=== PATIENT | female | born 1955 | race Caucasian/White ===

== ENCOUNTER 2020-04-19 15:25 | Outpatient (REF) | payer MEDICARE, SELFPAY | END 2020-04-19 15:26 | disposition home or self-care (01) | LOC: HO.LAB 15:25 | PROVIDERS: Visit Provider Internal Medicine | DX: Z20.828 Contact with and (suspected) exposure to other viral communicable diseases (principal) | CPT/HCPCS: C9803; U0003 ==

== ENCOUNTER → 2020-05-14 11:18 | Outpatient (BNVA) | payer MEDICARE, SELFPAY | PROVIDERS: PCP Internal Medicine; Visit Provider Nurse Practitioner | DX: Z13.89 Encounter for screening for other disorder (principal) | CPT/HCPCS: Q3014 ==

== ENCOUNTER → 2020-06-11 12:55 | Outpatient (BNVA) | payer MEDICARE, SELFPAY | PROVIDERS: PCP Internal Medicine; Visit Provider Surgery | DX: D24.1 Benign neoplasm of right breast (principal) | CPT/HCPCS: 99212 ==

== ENCOUNTER → 2020-08-21 12:17 | Outpatient (BNVA) | payer MEDICARE, SELFPAY | PROVIDERS: PCP Internal Medicine; Visit Provider Nurse Practitioner | DX: Z13.89 Encounter for screening for other disorder (principal) | CPT/HCPCS: Q3014 ==

== ENCOUNTER 2021-02-13 09:12 | Outpatient (REF) | payer MEDICARE, SELFPAY ==
--- NOTE | ~2021-02-13 | MM_ITS ---
EXAMINATION: BONE DENSITOMETRY CLINICAL INDICATION: Encounter for screening for osteoporosis. COMPARISON: Baseline BD dated 09/08/2016, left hip. This is the patient's baseline examination for the forearm radius 33%. TECHNIQUE: Using a [employer] DXA System (software version: 13.1) manufactured by [employer], dual-energy x-ray absorptiometry was performed of the left hip and left forearm radius 33%. The images are of good technical quality. Summary results are attached. FINDINGS: LEFT FEMUR, NECK: Current: BMD 0.636 g/cm2, Z-score -1.2, T-score -2.9, osteoporosis. Baseline: BMD 0.751 g/cm2. LEFT FEMUR, TOTAL: Current: BMD 0.766 g/cm2, Z-score -0.5, T-score -1.9, osteopenia, 7.3% decrease from baseline (<5% change is not significant). Baseline: BMD 0.826 g/cm2. LEFT FOREARM RADIUS 33%: BMD 0.538 g/cm2, Z-score -2.2, T-score -3.9, osteoporosis. IDENTIFIED RISK FACTORS: Menopause, history of fracture (adult). HISTORY OF FRACTURE: Spine. MEDICATIONS: Calcium. MM/XR DEXA axial skeleton IMPRESSION: 1. DIAGNOSIS: Severe osteoporosis based on the lowest T-score value of -3.9 in the forearm radius 33% and fracture history applying World Health Organization criteria. 2. 10-YEAR FRACTURE RISK PREDICTION, FRAX: Major osteoporotic fracture (clinical spine, forearm, hip or shoulder) 15.4%. Hip fracture 4.3%. 3. Treatment Recommendations: NOF guidelines recommend consideration for treatment in postmenopausal women and men age 50 and older presenting with the following: -A hip or vertebral (clinical or morphometric) fracture. -T-score less than or equal to -2.5 at the femoral neck or spine after appropriate evaluation to exclude secondary causes. -Low bone mass at the hip or spine and a 10-year fracture probability by FRAX of greater than or equal to 3% for hip fracture or greater than or equal to 20% for major osteoporotic fracture based on the [place] adapted WHO algorithm. 4. Other Recommendations: All treatment decisions require clinical judgment and consideration of individual patient factors, including patient preferences, comorbidities, previous drug use, risk factors not captured in the FRAX model (e.g. frailty, falls, vitamin D deficiency, increased bone turnover, interval significant decline in bone density) and possible under or overestimation of fracture risk by FRAX. Additional medical evaluation for secondary cause of low bone mineral density may be appropriate. FUTURE SCAN RECOMMENDATION: People with diagnosed cases of osteoporosis or at high risk for fracture should have regular bone mineral density tests. For patients eligible for Medicare, routine testing is allowed once every 2 years. The testing frequency can be increased to one year for patients who have rapidly progressing disease, those who are receiving or discontinuing medical therapy to restore bone mass, or have additional risk factors.
== END 2021-02-13 09:13 | disposition home or self-care (01) ==
LOC: HO.MAMMO 09:12
PROVIDERS: PCP Internal Medicine; Visit Provider Internal Medicine
DX: Z13.820 Encounter for screening for osteoporosis (principal); M81.0 Age-related osteoporosis without current pathological fracture; Z78.0 Asymptomatic menopausal state; M48.50XS Collapsed vertebra, not elsewhere classified, site unspecified, sequela of fracture; E11.9 Type 2 diabetes mellitus without complications; I10 Essential (primary) hypertension; M67.814 Other specified disorders of tendon, left shoulder; Z79.899 Other long term (current) drug therapy
CPT/HCPCS: 77080

== ENCOUNTER → 2021-02-18 13:09 | Outpatient (BNVA) | payer MEDICARE, SELFPAY | PROVIDERS: Visit Provider Nurse Practitioner | DX: Z13.89 Encounter for screening for other disorder (principal) | CPT/HCPCS: Q3014 ==

== ENCOUNTER → 2021-02-26 11:24 | Outpatient (BNVA) | payer MEDICARE, SELFPAY | PROVIDERS: PCP Internal Medicine; Referring Provider Internal Medicine; Visit Provider Surgery | DX: Z12.11 Encounter for screening for malignant neoplasm of colon (principal) | CPT/HCPCS: Q3014 ==

== ENCOUNTER 2021-04-04 06:30 | Day surgery (SDC) | payer MEDICARE, SELFPAY ==
[2021-03-28 09:09] VITALS: BMI 28.0
[2021-04-04 06:54] VITALS: BP 148/56; PULSE 75; RESP 18; TEMP 36.4; O2SAT 98
--- NOTE | 2021-04-04 07:02 | HO.ANESPROP2 ---
REPLACED BY [facility] Active Problems Active Problems: All Active Problems (Updated 04/04/21 @ 06:45 by Kyleigh Grande RN) Irritable bowel syndrome with diarrhea (Acute) Abdominal bloating (Acute) Colon cancer screening (Acute) Fibroadenoma of right breast (Acute) GERD (gastroesophageal reflux disease) (Acute) Nix's esophagus (Acute) Primary biliary cholangitis with systemic sclerosis (Acute) Epigastric burning sensation (Acute) Past Medical History Medical History (Updated 04/04/21 @ 06:45 by Kyleigh Grande RN) Asthma Nix's esophagus Colon cancer screening COVID-19 vaccine series completed Diabetes Epigastric burning sensation Fibroadenoma of right breast GERD (gastroesophageal reflux disease) IBS (irritable bowel syndrome) Primary biliary cholangitis with systemic sclerosis Family History Family History Father Family history of brain aneurysm Mother Myocardial infarct Family/Other Breast cancer Family history of problems with anesthesia: No Surgical History Surgical History History of back surgery (08/2017) History of colonoscopy (10/2008) History of esophagogastroduodenoscopy (EGD) (12/20/17) History of eye surgery History of right breast biopsy (07/26/18) History of Problems with Anesthesia: No Social History Social History Household Members: Family and Children Alcohol intake: current Alcohol intake frequency: does not drink Patient Tobacco Use Status: Never used Tobacco Use of substances other than those prescribed or required for medical reasons: No Have you been hit, kicked, punched, or otherwise hurt by someone within the past year? If so, by whom?: No Are you DNR?: No Advance Directives Information Provided: Yes (informational brochure mailed) Advance Directives on File: No Recently lost weight without trying: No Eating poorly because of decreased appetite: No Nutrition Risks: No Nutritional Risk Meds Allergies Allergy/AdvReac Type Severity Reaction Status Date / Time Iodinated Contrast Media Allergy Mild RASH Verified 04/04/21 06:43 [IV Dye, Iodine Containing] Active Medications: Current Medications Lactated Ringer's (Lr) 1,000 mls @ 50 mls/hr IVCONT .Q20H [facility] Home Medications Medication Instructions Recorded Confirmed Last Taken Type amlodipine 10 mg tablet 10 mg PO QAM 08/21/20 03/28/21 04/04/21 05:30 History atorvastatin 40 mg tablet 40 mg PO BEDTIME 08/21/20 03/28/21 Unknown History calcium citrate 200 mg 1 tab PO DAILY 08/21/20 03/28/21 Unknown History calcium-vitamin D3 6.25 mcg (250 unit) tablet cholecalciferol (vitamin D3) 25 25 mcg PO QAM 08/21/20 03/28/21 Unknown History mcg (1,000 unit) tablet fluticasone propionate 220 1 inh INHALATION BID 08/21/20 03/28/21 Unknown History mcg/actuation HFA aerosol inhaler lancets 33 gauge #100 ea 08/21/20 02/26/21 Unknown History lisinopril 5 mg tablet 5 mg PO DAILY 08/21/20 03/28/21 Unknown History metformin 500 mg tablet,extended 1,000 mg PO BID 08/21/20 03/28/21 Unknown History release 24 hr sertraline 25 mg tablet 25 mg PO DAILY 08/21/20 03/28/21 Unknown History ursodiol 300 mg capsule 300 mg PO BID 08/21/20 03/28/21 Unknown History tramadol 50 mg tablet 50 mg PO BID PRN 02/18/21 03/28/21 Unknown History aspirin 81 mg tablet,delayed 81 mg PO DAILY 02/26/21 03/28/21 Unknown History release (Adult Low Dose Aspirin) Exam Exam Date and Time: April 04, 2021 0702 Height,Weight and Vital Signs: Height 4 ft 11 in Weight 63.049 kg Last Vital Signs Temp 97.6 F 04/04/21 06:54 Pulse 75 04/04/21 06:54 Resp 18 04/04/21 06:54 BP 148/56 H 04/04/21 06:54 Pulse Ox 98 04/04/21 06:54 Airway Mallampati Class: II TM Dist: >3cm Neck ROM: Full Heart: rrr Lungs: cta Assessment and Plan Assessment Anesthesia Assessment: Anesthesia Plan Discussed and Chart Reviewed Final Anesthetic Review Family History of Problems with Anesthesia: No History of Problems with Anesthesia: No NPO: Yes (Sip water with med) ASA Class: III Final Preanesthetic Review: No Changes in Pt Med Stat, Meds/Allgs Chart Reviewed and Consent Obtained/Reviewed Patient Risk: Intermediate Procedure Risk: Intermediate Anesthetic Plan Anesthetic Plan: MAC: Disposition: Standard PACU
[2021-04-04 07:04] LABS: Glucose, Whole Blood 112 mg/dL (60-115)
--- NOTE | 2021-04-04 07:06 | HO.ANESPROP2 ---
[facility] Active Problems Active Problems: All Active Problems (Updated 04/04/21 @ 06:45 by Kyleigh Grande RN) Irritable bowel syndrome with diarrhea (Acute) Abdominal bloating (Acute) Colon cancer screening (Acute) Fibroadenoma of right breast (Acute) GERD (gastroesophageal reflux disease) (Acute) Nix's esophagus (Acute) Primary biliary cholangitis with systemic sclerosis (Acute) Epigastric burning sensation (Acute) Past Medical History Medical History (Updated 04/04/21 @ 06:45 by Kyleigh Grande RN) Asthma Nix's esophagus Colon cancer screening COVID-19 vaccine series completed Diabetes Epigastric burning sensation Fibroadenoma of right breast GERD (gastroesophageal reflux disease) IBS (irritable bowel syndrome) Primary biliary cholangitis with systemic sclerosis Family History Family History Father Family history of brain aneurysm Mother Myocardial infarct Family/Other Breast cancer Family history of problems with anesthesia: No Surgical History Surgical History History of back surgery (08/2017) History of colonoscopy (10/2008) History of esophagogastroduodenoscopy (EGD) (12/20/17) History of eye surgery History of right breast biopsy (07/26/18) History of Problems with Anesthesia: No Social History Social History Household Members: Family and Children Alcohol intake: current Alcohol intake frequency: does not drink Patient Tobacco Use Status: Never used Tobacco Use of substances other than those prescribed or required for medical reasons: No Have you been hit, kicked, punched, or otherwise hurt by someone within the past year? If so, by whom?: No Are you DNR?: No Advance Directives Information Provided: Yes (informational brochure mailed) Advance Directives on File: No Recently lost weight without trying: No Eating poorly because of decreased appetite: No Nutrition Risks: No Nutritional Risk Meds Allergies Allergy/AdvReac Type Severity Reaction Status Date / Time Iodinated Contrast Media Allergy Mild RASH Verified 04/04/21 06:43 [IV Dye, Iodine Containing] Active Medications: Current Medications Lactated Ringer's (Lr) 1,000 mls @ 50 mls/hr IVCONT .Q20H [facility] Home Medications Medication Instructions Recorded Confirmed Last Taken Type amlodipine 10 mg tablet 10 mg PO QAM 08/21/20 03/28/21 04/04/21 05:30 History atorvastatin 40 mg tablet 40 mg PO BEDTIME 08/21/20 03/28/21 Unknown History calcium citrate 200 mg 1 tab PO DAILY 08/21/20 03/28/21 Unknown History calcium-vitamin D3 6.25 mcg (250 unit) tablet cholecalciferol (vitamin D3) 25 25 mcg PO QAM 08/21/20 03/28/21 Unknown History mcg (1,000 unit) tablet fluticasone propionate 220 1 inh INHALATION BID 08/21/20 03/28/21 Unknown History mcg/actuation HFA aerosol inhaler lancets 33 gauge #100 ea 08/21/20 02/26/21 Unknown History lisinopril 5 mg tablet 5 mg PO DAILY 08/21/20 03/28/21 Unknown History metformin 500 mg tablet,extended 1,000 mg PO BID 08/21/20 03/28/21 Unknown History release 24 hr sertraline 25 mg tablet 25 mg PO DAILY 08/21/20 03/28/21 Unknown History ursodiol 300 mg capsule 300 mg PO BID 08/21/20 03/28/21 Unknown History tramadol 50 mg tablet 50 mg PO BID PRN 02/18/21 03/28/21 Unknown History aspirin 81 mg tablet,delayed 81 mg PO DAILY 02/26/21 03/28/21 Unknown History release (Adult Low Dose Aspirin) Exam Exam Date and Time: April 04, 2021 0706 Height,Weight and Vital Signs: Height 4 ft 11 in Weight 63.049 kg Last Vital Signs Temp 97.6 F 04/04/21 06:54 Pulse 75 04/04/21 06:54 Resp 18 04/04/21 06:54 BP 148/56 H 04/04/21 06:54 Pulse Ox 98 04/04/21 06:54 Pertinent Lab Results Pertinent Lab Results: Laboratory Tests 04/04/21 06:58 POC Glucose 112 Airway Mallampati Class: II TM Dist: >3cm Neck ROM: Full Heart: rrr Lungs: cta Assessment and Plan Assessment Anesthesia Assessment: Anesthesia Plan Discussed and Chart Reviewed Final Anesthetic Review Family History of Problems with Anesthesia: No History of Problems with Anesthesia: No NPO: Yes ASA Class: III Final Preanesthetic Review: No Changes in Pt Med Stat, Meds/Allgs Chart Reviewed and Consent Obtained/Reviewed Patient Risk: Intermediate Procedure Risk: Intermediate Anesthetic Plan Anesthetic Plan: MAC: Disposition: Standard PACU
[2021-04-04] MEDS: Lactated Ringers 1,000 ML 50 ML IVCONT (07:12)
--- NOTE | 2021-04-04 07:15 | MHC.SHP ---
Pre-Procedural Eval Section A Date of Service: 04/04/21 Section B Chief Complaint: Colon Cancer Screening Details of Present Illness: due for screening colonoscopy, no GI cmplaints Relevant Family History (Specify if Yes): No Relevant Social History: None Present Medications: see Short Stay Collaborative assessment Medical History: Significant History (biliary cholangitis, IBS, GERD, Nix's esophagus) Allergies: Allergies Allergy/AdvReac Type Severity Reaction Status Date / Time Iodinated Contrast Media Allergy Mild RASH Verified 04/04/21 06:43 [IV Dye, Iodine Containing] Review of Systems Sugical H&P ROS: Negative: Constitution, Cardiovascular, Respiratory, Neurological, Psychiatric, Hem-Onc, Allergic/Immunologic, Gastrointestinal, Genitourinary, Musculoskeletal, Integumentary, Endocrine and Eyes/Ears/Nose/Throat Exam Surgical H&P Exam: Normal: HEENT, Normal: Heart, Normal: Lungs, Normal: Extremities, Normal: Abdomen, Normal: Skin and Normal: Neurological Plan I have reviewed the history and physical and performed a pertinent physical examination on my patient. No changes have occurred unless specified.
--- NOTE | 2021-04-04 07:25 | P.CONAN_ITS ---
[facility] Active Problems Active Problems: All Active Problems (Updated 04/04/21 @ 06:45 by Kyleigh christensen RN) Irritable bowel syndrome with diarrhea (Acute) Abdominal bloating (Acute) Colon cancer screening (Acute) Fibroadenoma of right breast (Acute) GERD (gastroesophageal reflux disease) (Acute) Nix's esophagus (Acute) Primary biliary cholangitis with systemic sclerosis (Acute) Epigastric burning sensation (Acute) Past Medical History Medical History (Updated 04/04/21 @ 06:45 by Kyleigh Grande RN) Asthma Nix's esophagus Colon cancer screening COVID-19 vaccine series completed Diabetes Epigastric burning sensation Fibroadenoma of right breast GERD (gastroesophageal reflux disease) IBS (irritable bowel syndrome) Primary biliary cholangitis with systemic sclerosis Family History Family History Father Family history of brain aneurysm Mother Myocardial infarct Family/Other Breast cancer Family history of problems with anesthesia: No Surgical History Surgical History History of back surgery (08/2017) History of colonoscopy (10/2008) History of esophagogastroduodenoscopy (EGD) (12/20/17) History of eye surgery History of right breast biopsy (07/26/18) History of Problems with Anesthesia: No Social History Social History Household Members: Family and Children Alcohol intake: current Alcohol intake frequency: does not drink Patient Tobacco Use Status: Never used Tobacco Use of substances other than those prescribed or required for medical reasons: No Have you been hit, kicked, punched, or otherwise hurt by someone within the past year? If so, by whom?: No Are you DNR?: No Advance Directives Information Provided: Yes (informational brochure mailed) Advance Directives on File: No Recently lost weight without trying: No Eating poorly because of decreased appetite: No Nutrition Risks: No Nutritional Risk Meds Allergies Allergy/AdvReac Type Severity Reaction Status Date / Time Iodinated Contrast Media Allergy Mild RASH Verified 04/04/21 06:43 [IV Dye, Iodine Containing] Active Medications: Current Medications Lactated Ringer's (Lr) 1,000 mls @ 50 mls/hr IVCONT .Q20H [facility] Last Admin: 04/04/21 07:12 Dose: 50 mls/hr Documented by: Home Medications Medication Instructions Recorded Confirmed Last Taken Type amlodipine 10 mg tablet 10 mg PO QAM 08/21/20 03/28/21 04/04/21 05:30 History atorvastatin 40 mg tablet 40 mg PO BEDTIME 08/21/20 03/28/21 Unknown History calcium citrate 200 mg 1 tab PO DAILY 08/21/20 03/28/21 Unknown History calcium-vitamin D3 6.25 mcg (250 unit) tablet cholecalciferol (vitamin D3) 25 25 mcg PO QAM 08/21/20 03/28/21 Unknown History mcg (1,000 unit) tablet fluticasone propionate 220 1 inh INHALATION BID 08/21/20 03/28/21 Unknown History mcg/actuation HFA aerosol inhaler lancets 33 gauge #100 ea 08/21/20 02/26/21 Unknown History lisinopril 5 mg tablet 5 mg PO DAILY 08/21/20 03/28/21 Unknown History metformin 500 mg tablet,extended 1,000 mg PO BID 08/21/20 03/28/21 Unknown History release 24 hr sertraline 25 mg tablet 25 mg PO DAILY 08/21/20 03/28/21 Unknown History ursodiol 300 mg capsule 300 mg PO BID 08/21/20 03/28/21 Unknown History tramadol 50 mg tablet 50 mg PO BID PRN 02/18/21 03/28/21 Unknown History aspirin 81 mg tablet,delayed 81 mg PO DAILY 02/26/21 03/28/21 Unknown History release (Adult Low Dose Aspirin) Exam Exam Date and Time: April 04, 2021 0725 Height,Weight and Vital Signs: Height 4 ft 11 in Weight 63.049 kg Last Vital Signs Temp 97.6 F 04/04/21 06:54 Pulse 75 04/04/21 06:54 Resp 18 04/04/21 06:54 BP 148/56 H 04/04/21 06:54 Pulse Ox 98 04/04/21 06:54 Pertinent Lab Results Pertinent Lab Results: Laboratory Tests 04/04/21 06:58 POC Glucose 112 Airway Mallampati Class: II TM Dist: >3cm Neck ROM: Full Heart: rrr Lungs: cta Assessment and Plan Assessment Anesthesia Assessment: Anesthesia Plan Discussed and Chart Reviewed Final Anesthetic Review Family History of Problems with Anesthesia: No History of Problems with Anesthesia: No NPO: Yes ASA Class: II Final Preanesthetic Review: No Changes in Pt Med Stat, Meds/Allgs Chart Reviewed and Consent Obtained/Reviewed Patient Risk: Intermediate Procedure Risk: Intermediate Anesthetic Plan Anesthetic Plan: MAC: Disposition: Standard PACU
--- NOTE | 2021-04-04 08:00 | W.PM.OPN ---
Operative Note Operative Note Date of Service: 04/04/21 Narrative: Preop diagnosis: Colon cancer screening Postop diagnosis: Poor bowel prep Procedure: Colonoscopy Surgeon: Selvin Meneses MD The patient is a 66-year-old female scheduled today for screening colonoscopy. Her last colonoscopy was in 2008. she understood the technique of the procedure and was aware of the risks, benefits, and alternatives She was brought to the operating room and placed in left lateral decubitus position under monitored anesthesia care. A full digital rectal exam was done. There were no palpable anal lesions. These she did have external hemorrhoids. The tip of the Olympus colonoscope was gently introduced through the anal orifice and advanced with insufflation all the way to the the right colon. We encountered significant stool along the way. Examination of the cecum showed this large amounts of thick,liquid stool. We did lot of irrigation and suctioning to try to clear this but we did not have optimal visualization. I therefore proceeded to continue to we brought the scope with careful examination of the entire colonic mucosa being done with scope withdrawal. Again, multiple segments of the colon that thick stools requiring irrigation and suctioning. However, I felt that the visualization of the colonic mucosa is in adequate because of the presence of this thick stool On multiple segments. I did not find any large lesion however. I continued to withdraw the scope with careful examination of the rest of the colonic mucosa which were clear. The rectum was reached. There were no lesions seen. This area of the rectum was well prepped . Anal canal was unremarkable except for hemorrhoids. The scope was then withdrawn completely with desufflation The patient tolerated well. There were no complications noted. In view of this poor bowel prep, I would recommend another colonoscopy within 1 year.
[2021-04-04 08:06] VITALS: BP 106/39; PULSE 86; RESP 18; TEMP 36.6; O2SAT 98
[2021-04-04 08:21] VITALS: BP 118/59; PULSE 70; RESP 16; TEMP 36.6; O2SAT 99
== END 2021-04-04 08:50 | disposition home or self-care (01) ==
PROVIDERS: PCP Internal Medicine; Visit Provider Surgery
PROC: 0DJD8ZZ Inspection of Lower Intestinal Tract, Via Natural or Artificial Opening Endoscopic (ICD-10-PCS; CPT 45378; principal; 2021-04-04 07:30)
DX: Z12.11 Encounter for screening for malignant neoplasm of colon (principal); K64.8 Other hemorrhoids; K58.9 Irritable bowel syndrome, unspecified; K21.9 Gastro-esophageal reflux disease without esophagitis; J45.909 Unspecified asthma, uncomplicated; E11.9 Type 2 diabetes mellitus without complications; K74.3 Primary biliary cirrhosis; M34.89 Other systemic sclerosis; Z79.84 Long term (current) use of oral hypoglycemic drugs; Z79.82 Long term (current) use of aspirin; Z79.51 Long term (current) use of inhaled steroids; Z79.899 Other long term (current) drug therapy; Z91.041 Radiographic dye allergy status
CPT/HCPCS: G0121; 82947

== ENCOUNTER 2021-08-04 08:58 | Outpatient (REF) | payer MEDICARE, SELFPAY ==
--- NOTE | 2021-08-04 | PFT_ITS ---
INDICATION: Asthma. SPIROMETRY: The FEV1 to FVC of 77% with an FEV1 of 1.43 L, which is 77% predicted and an FVC of 1.85 L, which is 76% predicted. No significant response to bronchodilators noted. To note, the patient does have some small airway disease, which could be consistent with history of asthma. Maximum voluntary ventilation is 84% predicted. LUNG VOLUMES: Total lung capacity 72% predicted with residual volume of 78% predicted, and an expiratory reserve volume of 44% predicted. DIFFUSION CAPACITY: DLCO is 72% predicted. COMPARISONS: None. INTERPRETATION: No obstructive ventilatory defect. No significant response to bronchodilators noted. The patient does have some small airways disease, which may be due to her underlying condition of asthma. Maximum voluntary ventilation is within normal limits. The patient does have a restrictive ventilatory defect consistent with mild restrictive lung disease. Need to consider underlying neuromuscular conditions and/or parenchymal lung conditions. The patient also carries a mild diffusion impairment. Clinical correlation warranted. MD ALY Hdz/MODGlynn / [id number]
== END 2021-08-04 08:59 | disposition home or self-care (01) ==
LOC: HO.RESP 08:58
PROVIDERS: PCP Internal Medicine; Visit Provider Internal Medicine
DX: J45.20 Mild intermittent asthma, uncomplicated (principal)
CPT/HCPCS: 94060; 94727; 94729

== ENCOUNTER → 2022-04-08 11:16 | Outpatient (BNVA) | payer MEDICARE, SELFPAY | PROVIDERS: PCP Internal Medicine; Visit Provider Surgery | DX: Z01.818 Encounter for other preprocedural examination (principal) | CPT/HCPCS: 99212 ==

== ENCOUNTER 2022-04-18 08:53 | Outpatient (REF) | payer MEDICARE, SELFPAY ==
--- NOTE | ~2022-04-18 | MM_ITS ---
EXAMINATION: MM SCREENING DIGITAL BREAST TOMOSYNTHESIS, BILATERAL CLINICAL INFORMATION: Screening. Asymptomatic. Prior benign surgery decades ago left breast. The lifetime risk of breast cancer based on the Tyrer-Cuzick Model is 3%. COMPARISON: Mammography: 11/13/2019, 07/19/2018, 07/01/2018 TECHNIQUE: Digital breast tomosynthesis is performed in both the craniocaudal and mediolateral oblique views along with computer-aided detection (CAD). Synthesized 2D images are generated from the tomosynthesis. Additional left MLO view is provided. FINDINGS: There are scattered areas of fibroglandular density (ACR BI-RADS breast composition Category b). Parenchymal pattern is similar to prior studies and there is no developing density or interval mass or architectural abnormality. Biopsy clip marker again noted left breast mid 9:00 position. There is minor scarring anterior upper left breast on MLO view similar to prior studies consistent with the clinical history prior benign excisional biopsy years ago. The axilla are unremarkable. No significant changes. MM/MM tomosynthesis screening BI IMPRESSION: No mammographic evidence of malignancy. ASSESSMENT: BI-RADS 2: Benign RECOMMENDATION: Routine annual mammography screening. This patient's information was entered into a reminder system with a target due date for their next mammogram.
== END 2022-04-18 08:54 | disposition home or self-care (01) ==
LOC: HO.MAMMO 08:53
PROVIDERS: PCP Internal Medicine; Visit Provider Internal Medicine
DX: Z12.31 Encounter for screening mammogram for malignant neoplasm of breast (principal)
CPT/HCPCS: 77063; 77067

== ENCOUNTER 2022-06-02 08:40 | Day surgery (SDC) | payer OTHER, SELFPAY ==
[2022-05-28 15:19] VITALS: BMI 26.9
--- NOTE | 2022-06-01 09:41 | P.CONAN_ITS ---
Documented by User: Yani Alvarado NP 06/01/22 09:43 HPI - Anesthesia Eval Consult details Narrative: 67yo F for Colonoscopy s/p colo 03/2021 with MAC PMFSH Active Problems Active Problems: All Active Problems (Updated 04/04/21 @ 06:45 by Kyleigh Grande RN) Irritable bowel syndrome with diarrhea (Acute) Abdominal bloating (Acute) Colon cancer screening (Acute) Fibroadenoma of right breast (Acute) GERD (gastroesophageal reflux disease) (Acute) Nix's esophagus (Acute) Primary biliary cholangitis with systemic sclerosis (Acute) Epigastric burning sensation (Acute) Past Medical History Medical History Asthma Nix's esophagus Colon cancer screening COVID-19 vaccine series completed Diabetes Epigastric burning sensation Fibroadenoma of right breast GERD (gastroesophageal reflux disease) IBS (irritable bowel syndrome) Primary biliary cholangitis with systemic sclerosis Family History Family History Father Family history of brain aneurysm Mother Myocardial infarct Family/Other Breast cancer Family history of problems with anesthesia: No Surgical History Surgical History History of back surgery (08/2017) History of colonoscopy (10/2008) History of esophagogastroduodenoscopy (EGD) (12/20/17) History of eye surgery History of right breast biopsy (07/26/18) History of Problems with Anesthesia: No Social History Social History Household Members: Family and Children Alcohol intake: current Alcohol intake frequency: does not drink Patient Tobacco Use Status: Never used Tobacco Use of substances other than those prescribed or required for medical reasons: No Have you been hit, kicked, punched, or otherwise hurt by someone within the past year? If so, by whom?: No Are you DNR?: No Advance Directives: No Advance Directives Information Provided: Yes (brochure mailed) Advance Directives on File: No Recently lost weight without trying: No Eating poorly because of decreased appetite: No Nutrition Risks: No Nutritional Risk Meds Allergies Allergy/AdvReac Type Severity Reaction Status Date / Time Iodinated Contrast Media Allergy Mild RASH Verified 02/27/22 14:22 [IV Dye, Iodine Containing] Home Medications Medication Instructions Recorded Confirmed Last Taken Type amlodipine 10 mg tablet 10 mg PO QAM 08/21/20 05/28/22 04/04/21 05:30 History atorvastatin 40 mg tablet 40 mg PO BEDTIME 08/21/20 05/28/22 Unknown History calcium citrate 200 mg 1 tab PO DAILY 08/21/20 05/28/22 Unknown History calcium-vitamin D3 6.25 mcg (250 unit) tablet cholecalciferol (vitamin D3) 25 25 mcg PO QAM 08/21/20 05/28/22 Unknown History mcg (1,000 unit) tablet fluticasone propionate 220 1 inh inhalation BID 08/21/20 05/28/22 Unknown History mcg/actuation HFA aerosol inhaler lancets 33 gauge #100 ea 08/21/20 04/08/22 Unknown History lisinopril 5 mg tablet 5 mg PO DAILY 08/21/20 05/28/22 Unknown History metformin 500 mg tablet,extended 1,000 mg PO BID 08/21/20 05/28/22 Unknown History release 24 hr sertraline 25 mg tablet 25 mg PO DAILY 08/21/20 05/28/22 Unknown History ursodiol 300 mg capsule 300 mg PO BID 08/21/20 05/28/22 Unknown History tramadol 50 mg tablet 50 mg PO BID PRN Pain 02/18/21 05/28/22 Unknown History aspirin 81 mg tablet,delayed 81 mg PO DAILY 02/26/21 05/28/22 Unknown History release (Adult Low Dose Aspirin) albuterol sulfate 90 mcg/actuation 2 puff inhalation Q4H PRN Wheezing 04/08/22 05/28/22 Unknown History aerosol inhaler (Ventolin HFA) prednisone 10 mg tablet 0 mg PO 04/08/22 04/08/22 Unknown History baclofen 10 mg tablet 10 mg PO TID 05/28/22 05/28/22 Unknown History ferrous sulfate 324 mg (65 mg 1 tab PO Q OTHER DAY 05/28/22 05/28/22 Unknown History iron) tablet,delayed release Exam Exam Date and Time: June 01, 2022 0941 Height,Weight and Vital Signs: Height 4 ft 11 in Weight 60.328 kg Assessment and Plan Assessment Anesthesia Assessment: Chart Reviewed Final Anesthetic Review Family History of Problems with Anesthesia: No History of Problems with Anesthesia: No Documented by User: Tamara Lilly MD 06/02/22 10:16 PMF Past Medical History Medical History Asthma Nix's esophagus Colon cancer screening COVID-19 vaccine series completed Diabetes Epigastric burning sensation Fibroadenoma of right breast GERD (gastroesophageal reflux disease) IBS (irritable bowel syndrome) Primary biliary cholangitis with systemic sclerosis Functional capacity: independent ambulation Patient : No Family History Family History Father Family history of brain aneurysm Mother Myocardial infarct Family/Other Breast cancer Surgical History Surgical History History of back surgery (08/2017) History of colonoscopy (10/2008) History of esophagogastroduodenoscopy (EGD) (12/20/17) History of eye surgery History of right breast biopsy (07/26/18) Social History Social History Household Members: Family and Children Alcohol intake: current Alcohol intake frequency: does not drink Patient Tobacco Use Status: Never used Tobacco Use of substances other than those prescribed or required for medical reasons: No Have you been hit, kicked, punched, or otherwise hurt by someone within the past year? If so, by whom?: No Are you DNR?: No Advance Directives: No Advance Directives Information Provided: Yes (brochure mailed) Advance Directives on File: No Recently lost weight without trying: No Eating poorly because of decreased appetite: No Nutrition Risks: No Nutritional Risk Meds Allergies Allergy/AdvReac Type Severity Reaction Status Date / Time Iodinated Contrast Media Allergy Mild RASH Verified 02/27/22 14:22 [IV Dye, Iodine Containing] Home Medications Medication Instructions Recorded Confirmed Last Taken Type amlodipine 10 mg tablet 10 mg PO QAM 08/21/20 05/28/22 04/04/21 05:30 History atorvastatin 40 mg tablet 40 mg PO BEDTIME 08/21/20 05/28/22 Unknown History calcium citrate 200 mg 1 tab PO DAILY 08/21/20 05/28/22 Unknown History calcium-vitamin D3 6.25 mcg (250 unit) tablet cholecalciferol (vitamin D3) 25 25 mcg PO QAM 08/21/20 05/28/22 Unknown History mcg (1,000 unit) tablet fluticasone propionate 220 1 inh inhalation BID 08/21/20 05/28/22 Unknown History mcg/actuation HFA aerosol inhaler lancets 33 gauge #100 ea 08/21/20 04/08/22 Unknown History lisinopril 5 mg tablet 5 mg PO DAILY 08/21/20 05/28/22 Unknown History metformin 500 mg tablet,extended 1,000 mg PO BID 08/21/20 05/28/22 Unknown History release 24 hr sertraline 25 mg tablet 25 mg PO DAILY 08/21/20 05/28/22 Unknown History ursodiol 300 mg capsule 300 mg PO BID 08/21/20 05/28/22 Unknown History tramadol 50 mg tablet 50 mg PO BID PRN Pain 02/18/21 05/28/22 Unknown History aspirin 81 mg tablet,delayed 81 mg PO DAILY 02/26/21 05/28/22 Unknown History release (Adult Low Dose Aspirin) albuterol sulfate 90 mcg/actuation 2 puff inhalation Q4H PRN Wheezing 04/08/22 05/28/22 Unknown History aerosol inhaler (Ventolin HFA) prednisone 10 mg tablet 0 mg PO 04/08/22 04/08/22 Unknown History baclofen 10 mg tablet 10 mg PO TID 05/28/22 05/28/22 Unknown History ferrous sulfate 324 mg (65 mg 1 tab PO Q OTHER DAY 05/28/22 05/28/22 Unknown History iron) tablet,delayed release Exam Airway Mallampati Class: II TM Dist: >3cm Neck ROM: Full Heart: RRR Lungs: CTA Assessment and Plan Final Anesthetic Review ASA Class: II Final Preanesthetic Review: No Changes in Pt Med Stat, Meds/Allgs Chart Reviewed, Consent Obtained/Reviewed and Anes Risks/Benef Reviewed Patient Risk: Low Procedure Risk: Low Anesthetic Plan Anesthetic Plan: MAC: Disposition: Standard PACU
[2022-06-02 08:59] VITALS: BP 159/58; PULSE 73; RESP 16; TEMP 36.4; O2SAT 99
[2022-06-02] MEDS: Lactated Ringers 1,000 ML 100 ML IVCONT (09:12)
[2022-06-02 09:13] LABS: Glucose, Whole Blood 100 mg/dL (60-115)
--- NOTE | 2022-06-02 09:28 | MHC.SHP ---
Pre-Procedural Eval Section A Date of Service: 06/02/22 Section B Chief Complaint: screening Details of Present Illness: For screening colonoscopy - had poor bowel prep last 2020. Denies new GI complaints Relevant Family History (Specify if Yes): No Relevant Social History: None Present Medications: see Short Stay Collaborative assessment Medical History: Significant History (GERD, Nix's esophagus, biliary cholangitis, IBS) Allergies: Allergies Allergy/AdvReac Type Severity Reaction Status Date / Time Iodinated Contrast Media Allergy Mild RASH Verified 02/27/22 14:22 [IV Dye, Iodine Containing] Review of Systems Sugical H&P ROS: Negative: Constitution, Cardiovascular, Respiratory, Neurological, Psychiatric, Hem-Onc, Allergic/Immunologic, Gastrointestinal, Genitourinary, Musculoskeletal, Integumentary, Endocrine and Eyes/Ears/Nose/Throat Exam Surgical H&P Exam: Normal: HEENT, Normal: Heart, Normal: Lungs, Normal: Extremities, Normal: Abdomen, Normal: Skin and Normal: Neurological Plan Diagnosis/Plan: Unchanged I have reviewed the history and physical and performed a pertinent physical examination on my patient. No changes have occurred unless specified. Time Spent With Patient Time: Total time managing care of this patient today ____ minutes.
--- NOTE | 2022-06-02 10:25 | W.PM.OPN ---
Operative Note Operative Note Date of Service: 06/02/22 Narrative: Preop diagnosis: Cancer screening Postop diagnosis: 1 Small flat polyp about 3 mm at level 60 Procedure: Colonoscopy with polypectomy using cold forceps Surgeon: Selvin Meneses MD Patient is 67 year female here for a screening colonoscopy. She had a colonoscopy in 2020 but she had very poor bowel prep at that time and had recommended a repeat colonoscopy. She understood the technique of the procedure as well as the risks, benefits, and alternatives. The patient was brought to the operating room and placed in left lateral decubitus position under monitored anesthesia care. A surgical time-out was done. A full digital rectal exam was done and this did not reveal any significant anal lesions. The tip of the Olympus colonoscope was gently introduced through the anal orifice advanced with insufflation all the way to the cecum. The cecum was intubated. The cecum was identified by visualization of the ileocecal valve as well as the appendiceal orifice. The cecal mucosa was unremarkable. The scope was gradually withdrawn with careful examination of the entire colonic mucosa being done with scope withdrawal. The patient had adequate bowel prep so it was unlikely that any lesion may have been missed. At level 60 cm there was note of a small flat polyp about 3-4 mm. This was removed using multiple bites of the cold forceps. We continued to withdraw the scope. There were no other lesions seen. The rectum was reached and there were no lesions seen. The anal canal was unremarkable. The scope was then withdrawn completely with desufflation The patient tolerated the procedure well. There were no immediate complications. Her next colonoscopy may be in the next 10 years depending on the path report..
[2022-06-02 10:32] VITALS: BP 92/43; PULSE 73; RESP 16; TEMP 36.3; O2SAT 97
[2022-06-02 10:47] VITALS: BP 113/54; PULSE 74; RESP 16; O2SAT 98
--- NOTE | 2022-06-02 11:23 | HO.POSTANES ---
Post Anesthesia Evaluation Post Anesthesia Evaluation Vital Signs: Vital Signs Temp Pulse Resp BP Pulse Ox O2 Del Method O2 Flow Rate 06/02/22 10:47 74 16 113/54 L 98 Room Air 06/02/22 10:32 97.3 F 73 16 92/43 L 97 Nasal Cannula with ETCO2 3 06/02/22 08:59 97.5 F 73 16 159/58 H 99 Room Air Anesthesia: Monitored Mental Status: Awake Pain Control: Satisfactory Nausea/Vomiting: None Hydration: Adequate
== END 2022-06-02 11:33 | disposition home or self-care (01) ==
PROVIDERS: PCP Internal Medicine; Visit Provider Surgery
PROC: 0DJD8ZZ Inspection of Lower Intestinal Tract, Via Natural or Artificial Opening Endoscopic (ICD-10-PCS; CPT 45378; principal; 2022-06-02 10:20)
DX: Z12.11 Encounter for screening for malignant neoplasm of colon (principal); D12.4 Benign neoplasm of descending colon; K58.9 Irritable bowel syndrome, unspecified; K21.9 Gastro-esophageal reflux disease without esophagitis; K22.70 Barrett's esophagus without dysplasia; J45.909 Unspecified asthma, uncomplicated; E11.9 Type 2 diabetes mellitus without complications; Z79.51 Long term (current) use of inhaled steroids; Z79.84 Long term (current) use of oral hypoglycemic drugs; Z79.82 Long term (current) use of aspirin; Z79.899 Other long term (current) drug therapy; Z91.041 Radiographic dye allergy status
CPT/HCPCS: 45380; 82947; 88305; J1100; J2405

== ENCOUNTER 2022-12-17 13:11 | Outpatient (REF) | payer OTHER, SELFPAY ==
[2022-12-17 16:11] LABS: MANUAL DIFF FLAG NO
[2022-12-17 16:21] LABS: Basophils Absolute Auto 0.1 X10*3/uL (0.0-0.2); Basophils Percent Auto 0.9 % (0-2); Eosinophils Absolute Auto 0.6 X10*3/uL (0.0-0.4); Eosinophils Percent Auto 5.5 % (0-4); Hematocrit 39.1 % (37.0-47.0); Imm Gran Abs Auto 0.04 X10*3/uL (0.00-0.03); Imm Gran Pct Auto 0.3 % (0.0-0.4); Lymphocytes Absolute Auto 4.4 X10*3/uL (1.2-4.9); Lymphocytes Percent Auto 37.8 % (20-40); Mean Corpuscular HGB Conc 33.2 g/dl (31.0-35.0); Mean Corpuscular Hemoglobin 31.5 pg (27.0-33.0); Mean Corpuscular Volume 94.7 fL (80.0-98.0); Monocytes Absolute Auto 1.2 X10*3/uL (0.1-1.2); Monocytes Percent Auto 10.8 % (2-11); Neutrophils Absolute Auto 5.2 x10*3/uL (2.0-8.3); Neutrophils Percent Auto 44.7 % (45-73); Platelet Count 333 X10*3/uL (160-400); Red Blood Count 4.13 X10*6/uL (4.20-5.50); Red Cell Distribution Width 14.6 % (11.0-16.0); White Blood Count 11.5 X10*3/uL (4.8-10.8)
[2022-12-17 17:10] LABS: Cholesterol 155 mg/dL; HDL Cholesterol 61 mg/dL; LDL Cholesterol Calculated 75 mg/dl; Triglycerides 95 mg/dL
[2022-12-17 17:29] LABS: Creatinine Urine 268.01 mg/dL; Microalbum/Creatinine Ratio Ur 35.4 ug/mg cr
[2022-12-17 17:32] LABS: Alanine Aminotransferase 71 U/L (0-31); Albumin Level 3.4 g/dL (3.5-5.0); Alkaline Phosphatase 256 U/L (39-117); Aspartate Amino Transferase 96 U/L (5-31); Bilirubin Direct 0.4 mg/dL (0.0-0.5); Bilirubin Total 0.8 mg/dL (0.0-1.0); Total Protein 9.1 g/dL (6.5-8.0)
[2022-12-17 17:39] LABS: TSH reflex Free T4 2.27 uIU/mL (0.32-4.0); Vitamin D 25-OH Total < 3.5 ng/mL (>30)
[2022-12-17 17:50] LABS: Reflex LDLD? No
== END 2022-12-17 13:12 | disposition home or self-care (01) ==
LOC: HO.HHCL 13:11
PROVIDERS: Visit Provider Internal Medicine
DX: D47.2 Monoclonal gammopathy (principal); E11.9 Type 2 diabetes mellitus without complications; I10 Essential (primary) hypertension; E55.9 Vitamin D deficiency, unspecified
CPT/HCPCS: 36415; 80061; 80076; 82043; 82306; 84443; 85025

== ENCOUNTER 2023-01-20 17:34 | Outpatient (REF) | payer OTHER, SELFPAY ==
[2023-01-20 17:59] LABS: Appearance Urine Clear; Color Urine Dark Yellow; Glucose Urine UA Negative (Negative); Leukocyte Esterase Urine Trace (Negative); Nitrite Urine Negative (Negative); PH 5.5 (5.0-9.0); Specific Gravity - Urine 1.025 (1.005-1.025); UMIC TRIGGER UACC YES; Urine Blood Trace (Negative); Urine Ketones Trace mg/dL (Negative); Urine Protein Trace mg/dL (Neg-Trace)
[2023-01-20 18:03] LABS: Bacteria Urine None Seen (None Seen); WBC Urine 0-5 /HPF (0-5)
== END 2023-01-20 17:35 | disposition home or self-care (01) ==
LOC: HO.HHCLNP 17:34
PROVIDERS: Visit Provider Student in an Organized Health Care Education/Training Program
DX: R10.2 Pelvic and perineal pain (principal)
CPT/HCPCS: 81001

== ENCOUNTER 2023-02-10 08:53 | Outpatient (AMB) | payer OTHER, SELFPAY ==
--- NOTE | 2023-02-10 08:54 | A.OFFVIS_ITS ---
Intake Vital Signs 02/10/23 08:55 Height 4 ft 11 in Weight 129 lb 3.054 oz BMI 26.1 BP 141/65 H Blood Pressure Location Lt brachial Position Sitting Pulse 64 Intake Visit Reasons: follow up bloating, GERD, IBS Intake Note: Patient presents to in office visit today in follow up of bloating, GERD, and IBS. Patient reports she was admitted to [facility] with vomiting and diarrhea. She returned again after that visit with shoulder and neck pain and was given muscle relaxer. CC:Today she reports having occasional nausea, epigastric pain when she eats, heartburn, and GERD. She reports she was found to have kidney stones in the hospital. [employer] Required: Yes Accompanied by: Self / Same As Patient Allergies Iodinated Contrast Media [IV Dye, Iodine Containing] Allergy (Mild, Verified 02/10/23 09:01) RASH HPI follow up bloating, GERD, IBS HPI Details Assessment & Plan (1) Abdominal bloating: ?Code(s): R14.0 - Abdominal distension (gaseous) ?Plan: Georgian #[id number], Patrick. She says that she has been the same. It is somewhat confusing at first, the because I am uncertain if the meds are helping her or not again she says that she will get bloated and have some pain immediately after eating but over time it will go away.? I ask if she is taking her Creon on simethicone and she says she is twice a day as she only eats twice a day.? I suggest that she take her Creon earlier so it can be in her so.? I will also increase the dose to see if this gives her additional help. She continues on her Dexilant and has good control of her heartburn.? She says she moves her bowels twice a day and is having neither constipation nor diarrhea at this point. She continues to follow-up with [facility] for her primary biliary cholangitis and she says that her checkup have been good.? She has another appointment coming up in June of 2021. She asks when she is due to have an EGD for her Nix's and I tell her it is next year. She is agreeable to an 8 week follow-up so we can assess how well each increase in the Creon is working for her.? (2) Epigastric burning sensation: ?Comment: Benign EGD 2019 except for Nix's esophagus and negative gastric emptying study 2019 ?Code(s): R10.13 - Epigastric pain (3) GERD (gastroesophageal reflux diseas e): ?Code(s): K21.9 - Gastro-esophageal reflux disease without esophagitis (4) Nix's esophagus: ?Comment: On biopsy 2018 EGD, nonobstructing partial Schatzki's ring, 2019 EGD no metaplasia but repeat in 3 years in case of sampling error since possibel SSBE visualized ?Code(s): K22.70 - Nix's esophagus without dysplasia (5) Primary biliary cholangitis with sys temic sclerosis: ?Comment: Treated by Dr. Campuzano at [facility]. ?Code(s): K83.09 - Other cholangitis; M34.9 - Systemic sclerosis, unspecified ? ? ? Medications:?New qinnjd-xjaqhuou-ou ylase 24,000-76,00 0 -120,000 unit (C reon) ?? administe r with meals and/o r snacks 1 cap? PO QID 30 days 120 caps 6RF D K58.9 - Irritable bowel syndrome wit hout diarrhea ? Refilled dexlansoprazole (D exilant) 60 mg? PO QAM 30 caps 6RF K22.70 - Nix's esophagus without dysplasia ? simethicone 180 mg? PO QID 12 0 caps 6RF R14.0 - Abdominal distension (gaseou s) ? Discontinued cnmxxl-rtefvcoz-mj ylase 3,000-9,500- 15,000 unit (Creo n) ?? Discontinued Reason:? Doctor's Order 1 cap? PO QID 140 caps 2RF K59.04 - Chronic i diopathic constipa tion ? TODAY'S VISIT Qatari #Fiona. LIve She says she is not doing well, my liver is getting worse and worse, and they have to take out my GB. She is treated for PBC at [facility], it used to be Dr. Gee, but he left and there is a [place] donny. But, she continues to follow with them. She was told at the [facility] ER that she needs her GB out. I will try to get those records. I will order a HIDA scan. She has pain that starts in the epigastrum and radiates to the RUQ with eating. This will last about 1 hour after eating and onsets 1/2 hour after eating. She is only taking creon 1 tab bid, I want her to increase to 2 tabs bid. Ordering HIDA, EGD, getting records, chem panel. Has upcoming US may be able to cancel depending on [facility] imaging. ROV 4 weeks. [facility] Medical History Asthma COVID-19 vaccine series completed Diabetes Colon cancer screening Fibroadenoma of right breast Epigastric burning sensation 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 GERD (gastroesophageal reflux disease) IBS (irritable bowel syndrome) Surgical History History of right breast biopsy (07/26/18) History of back surgery (08/2017) History of eye surgery History of esophagogastroduodenoscopy (EGD) (12/20/17) History of colonoscopy (10/2008) Family History Father Family history of brain aneurysm Mother Myocardial infarct Family/Other Breast cancer Social History Household Members: Family and Children Alcohol intake: current Alcohol intake frequency: does not drink Patient Tobacco Use Status: Never used Tobacco Review of Systems Const Denies fatigue, Denies fever(s), Denies night sweats, Denies poor appetite and Denies weight loss Eyes Details: glasses Reports requires corrective lenses ENT Reports Normal hearing present, Denies dental pain, Denies dysphagia, Denies hearing loss, Denies mouth pain, Denies odynophagia, Denies throat swelling, Denies tongue swelling and Reports other (Dentition adequate) Card Reports no additional complaints Resp Reports no additional complaints GI Reports abdominal pain, Denies melena, Reports bloating, Denies hematochezia, Denies constipation, Reports GI cramping, Denies dysphagia, Denies excessive flatus, Denies early satiety, Reports heartburn, Reports diarrhea, Denies nausea, Denies odynophagia, Denies vomiting and Denies hematemesis Skin/Breast Denies pruritus, Denies lesions, Denies rash and Denies jaundice Neuro Reports Normal hearing present and Denies Abnormal speech present Endo Denies fatigue Aller/Immun Denies throat swelling and Denies tongue swelling Physical Exam Vital Signs: Last Vital Signs Pulse 64 02/10/23 08:55 BP 141/65 H 02/10/23 08:55 BMI result Body Mass Index 26.1 Const General: cooperative, no acute distress, well developed and well groomed Nutritional Appearance: average body habitus and well nourished Orientation/consciousness: oriented to person, oriented to place and oriented to time Limitations: language barrier HEENT Head: Yes normocephalic and Yes atraumatic Eyes General: appearance normal, both eyes and all related structures Pupils: Equal, round and reactive pupils present Neck Neck: Yes normal visual inspection and Yes no lymphadenopathy Thyroid: Thyroid normal Resp Effort & Inspection: normal respiratory effort and able to speak in complete sentences Auscultation: clear to auscultation bilaterally Cardio Rate: regular rate Rhythm: regular rhythm Heart sounds: Normal, physiologic split S2 sound present Peripheral pulses: radial pulses present and posterior tibial pulses present GI Inspection: No distended and No Abdominal panniculus present Palpation (GI): Soft to palpation, Tenderness to palpation present (GI) in the epigastrum, no guarding, not rigid and No hepatosplenomegaly present Percussion: Yes normal to percussion Auscultation: normal bowel sounds Rectal Exam - Female: deferred Skin General skin exam: no rashes or lesions noted, turgor normal, skin not dry, no jaundice, No spider nevi and no striae Rashes: no rashes Nails: normal Neuro General: oriented to person, oriented to place and oriented to time Cranial nerves: Yes Equal, round and reactive pupils present and Yes Normal hearing present Speech: No Abnormal speech present Extrem General: Yes normal to inspection, No clubbing, No cyanosis and No edema Psych Appearance: grossly normal and well kempt Mental Status: mental status grossly normal Speech and movement: Normal speech and movement present Affect: normal affect Attitude: cooperative Thought process: Normal thought process present and not confabulating Thought content: Normal thought content present Insight: Limited insight present (Psych) Judgement: Limited judgement present (Psych) Assessment & Plan Assessment & Plan (1) RUQ abdominal pain: Code(s): R10.11 - Right upper quadrant pain Plan: Qatari #Fiona. LIve She says she is not doing well, my liver is getting worse and worse, and they have to take out my GB. She is treated for PBC at [facility], it used to be Dr. Gee, but he left and there is a [place] donny. But, she continues to follow with them. She was told at the [facility] ER that she needs her GB out. I will try to get those records. I will order a HIDA scan. She has pain that starts in the epigastrum and radiates to the RUQ with eating. This will last about 1 hour after eating and onsets 1/2 hour after eating. She is only taking creon 1 tab bid, I want her to increase to 2 tabs bid. Ordering HIDA, EGD, getting records, chem panel. Has upcoming US may be able to cancel depending on [facility] imaging. ROV 4 weeks. (2) Nix's esophagus: Comment: On biopsy 2018 EGD, nonobstructing partial Schatzki's ring, 2019 EGD no metaplas ia but repeat in 3 years in case of sampling error since possibel SSBE visualized Code(s): K22.70 - Nix's esophagus without dysplasia (3) Primary biliary cholangitis with systemic sclerosis: Comment: Treated by Dr. Campuzano at [facility]. Code(s): K83.09 - Other cholangitis; M34.9 - Systemic sclerosis, unspecified Orders: Orders NM hepatobiliary w pharm 02/10/23 K22.70 - Nix's esophagus without dysplasia, K83.09 - Other cholangitis, M34.9 - Systemic sclerosis, unspecified, R10.11 - Right upper quadrant pain Comprehensive Met. Panel 02/10/23 R10.11 - Right upper quadrant pain, K22.70 - Nix's esophagus without dysplasia Lipase 02/10/23 R10.11 - Right upper quadrant pain, K22.70 - Nix's esophagus without dysplasia EGD with Guillory - GI Use Only 02/10/23 K22.70 - Nix's esophagus without dysplasia Medications: Refilled ribomh-xpxclfhu-oawrdan 24,000-76,000 -120,000 unit (Creon) 1 cap PO QID 120 caps 6RF K58.9 - Irritable bowel syndrome without diarrhea simethicone (Gas Relief (simethicone)) 180 mg PO QID 120 ea 6RF R14.0 - Abdominal distension (gaseous) Coding Level of Care Code Est Pt Level 4 (90875) Diagnoses RUQ abdominal pain R10.11 Nix's esophagus K22.70 Primary biliary cholangitis with systemic sclerosis K83.09; M34.9
[2023-02-10 08:55] VITALS: BP 141/65; PULSE 64; BMI 26.1
== END 2023-02-10 09:35 | disposition home or self-care (01) ==
PROVIDERS: PCP Internal Medicine; Visit Provider Nurse Practitioner
DX: R10.11 Right upper quadrant pain (principal); K22.70 Barrett's esophagus without dysplasia; K83.09 Other cholangitis; M34.9 Systemic sclerosis, unspecified
CPT/HCPCS: 99214

== ENCOUNTER → 2023-02-10 08:53 | Outpatient (BNVA) | payer OTHER, SELFPAY | PROVIDERS: PCP Internal Medicine; Visit Provider Nurse Practitioner | DX: K22.70 Barrett's esophagus without dysplasia (principal); K83.09 Other cholangitis; M34.9 Systemic sclerosis, unspecified; R10.11 Right upper quadrant pain | CPT/HCPCS: 99212 ==

== ENCOUNTER 2023-02-12 09:21 | Day surgery (SDC) | payer OTHER, SELFPAY ==
[2023-02-12 10:18] VITALS: BP 154/98; PULSE 65; RESP 19; TEMP 36.8; O2SAT 98
[2023-02-12 10:19] VITALS: BMI 26.1
[2023-02-12] MEDS: Lactated Ringers 1,000 ML 50 ML IVCONT (10:37)
--- NOTE | 2023-02-12 10:43 | PC.NURSE ---
ATTEMPTED TO CALL [facility] WITH NO ANSWER
--- NOTE | 2023-02-12 11:15 | HO.ANESPROP2 ---
[facility] Active Problems Active Problems: All Active Problems (Updated 02/10/23 @ 09:24 by FERNANDO Pedersen) RUQ abdominal pain (Acute) Irritable bowel syndrome with diarrhea (Acute) Abdominal bloating (Acute) Colon cancer screening (Acute) Fibroadenoma of right breast (Acute) GERD (gastroesophageal reflux disease) (Acute) Nix's esophagus (Acute) Primary biliary cholangitis with systemic sclerosis (Acute) Epigastric burning sensation (Acute) Past Medical History Medical History Asthma COVID-19 vaccine series completed Diabetes Colon cancer screening Fibroadenoma of right breast Epigastric burning sensation 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 GERD (gastroesophageal reflux disease) IBS (irritable bowel syndrome) Family History Family History Father Family history of brain aneurysm Mother Myocardial infarct Family/Other Breast cancer Family history of problems with anesthesia: No Surgical History Surgical History History of right breast biopsy (07/26/18) History of back surgery (08/2017) History of eye surgery History of esophagogastroduodenoscopy (EGD) (12/20/17) History of colonoscopy (10/2008) History of Problems with Anesthesia: No Social History Social History Household Members: Family and Children Alcohol intake: current Alcohol intake frequency: does not drink Patient Tobacco Use Status: Never used Tobacco Are you DNR?: No Advance Directives: No Advance Directives Information Provided: Yes Meds Allergies Allergy/AdvReac Type Severity Reaction Status Date / Time Iodinated Contrast Media Allergy Mild RASH Verified 02/10/23 09:01 [IV Dye, Iodine Containing] Active Medications: Current Medications Lactated Ringer's (Lr) 1,000 mls @ 50 mls/hr IVCONT .Q20H BEVERLEY Last Admin: 02/12/23 10:37 Dose: 50 mls/hr Home Medications Medication Instructions Recorded Confirmed Last Taken Type amlodipine 10 mg tablet 10 mg PO QAM 08/21/20 05/28/22 04/04/21 05:30 History atorvastatin 40 mg tablet 40 mg PO BEDTIME 08/21/20 05/28/22 Unknown History calcium citrate 200 mg 1 tab PO DAILY 08/21/20 05/28/22 Unknown History calcium-vitamin D3 6.25 mcg (250 unit) tablet cholecalciferol (vitamin D3) 25 25 mcg PO QAM 08/21/20 05/28/22 Unknown History mcg (1,000 unit) tablet fluticasone propionate 220 1 inh inhalation BID 08/21/20 05/28/22 Unknown History mcg/actuation HFA aerosol inhaler lancets 33 gauge #100 ea 08/21/20 04/08/22 Unknown History lisinopril 5 mg tablet 5 mg PO DAILY 08/21/20 05/28/22 02/12/23 History metformin 500 mg tablet,extended 1,000 mg PO BID 08/21/20 05/28/22 Unknown History release 24 hr sertraline 25 mg tablet 25 mg PO DAILY 08/21/20 05/28/22 Unknown History ursodiol 300 mg capsule 300 mg PO BID 08/21/20 05/28/22 Unknown History tramadol 50 mg tablet 50 mg PO BID PRN Pain 02/18/21 05/28/22 Unknown History aspirin 81 mg tablet,delayed 81 mg PO DAILY 02/26/21 05/28/22 02/09/23 History release (Adult Low Dose Aspirin) albuterol sulfate 90 mcg/actuation 2 puff inhalation Q4H PRN Wheezing 04/08/22 05/28/22 Unknown History aerosol inhaler (Ventolin HFA) baclofen 10 mg tablet 10 mg PO TID 05/28/22 05/28/22 Unknown History ferrous sulfate 324 mg (65 mg 1 tab PO Q OTHER DAY 05/28/22 05/28/22 Unknown History iron) tablet,delayed release alendronate 70 mg tablet 70 mg PO QWEEK 02/10/23 Unknown History ascorbic acid (vitamin C) 500 mg 500 mg PO Q OTHER DAY 02/10/23 Unknown History tablet (Vitamin C) fluticasone propionate 50 spray intranasal 02/10/23 Unknown History mcg/actuation nasal spray,suspension loratadine 10 mg tablet 10 mg PO DAILY PRN 02/10/23 Unknown History Exam Exam Date and Time: February 12, 2023 1115 Height,Weight and Vital Signs: Height 4 ft 11 in Weight 58.513 kg Last Vital Signs Temp 98.3 F 02/12/23 10:18 Pulse 65 02/12/23 10:18 Resp 19 02/12/23 10:18 BP 154/98 H 02/12/23 10:18 Pulse Ox 98 02/12/23 10:18 O2 Del Method Room Air 02/12/23 10:18 Airway Mallampati Class: III TM Dist: >3cm Neck ROM: Full Heart: RRR Lungs: CTA Assessment and Plan Assessment Anesthesia Assessment: Chart Reviewed Final Anesthetic Review Family History of Problems with Anesthesia: No History of Problems with Anesthesia: No NPO: Yes ASA Class: II and III Final Preanesthetic Review: Meds/Allgs Chart Reviewed, Consent Obtained/Reviewed and Anes Risks/Benef Reviewed Patient Risk: Low Procedure Risk: Low Anesthetic Plan Anesthetic Plan: MAC: Disposition: Standard PACU
--- NOTE | 2023-02-12 11:29 | MHC.SHP ---
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 GERD (gastroesophageal reflux disease) IBS (irritable bowel syndrome)) History of Previous Operations: Relevant previous surgery/procedure and date(s) (History of right breast biopsy (07/26/18) History of back surgery (08/2017) History of eye surgery History of esophagogastroduodenoscopy (EGD) (12/20/17) History of colonoscopy (10/2008)) Allergies: Allergies Allergy/AdvReac Type Severity Reaction Status Date / Time Iodinated Contrast Media Allergy Mild RASH Verified 02/10/23 09:01 [IV Dye, Iodine Containing] Review of Systems Sugical H&P ROS: Negative: Constitution, Cardiovascular, Respiratory, Neurological, Psychiatric, Hem-Onc, Allergic/Immunologic, Gastrointestinal, Genitourinary, Musculoskeletal, Integumentary, Endocrine and Eyes/Ears/Nose/Throat Exam Surgical H&P Exam: Normal: HEENT, Normal: Heart, Normal: Lungs, Normal: Extremities, Normal: Abdomen, Normal: Skin and Normal: Neurological Plan Diagnosis/Plan: Unchanged I have reviewed the history and physical and performed a pertinent physical examination on my patient. No changes have occurred unless specified. Time Spent With Patient Time: Total time managing care of this patient today ____ minutes.
--- NOTE | 2023-02-12 11:56 | W.PM.OPN ---
Operative Note Operative Note Date of Service: 02/12/23 Narrative: Procedure Description: EGD Indication: abdominal pain , hx of PBC Anesthesia: MAC FLEXIBLE TRANSORAL UPPER GASTROINTESTINAL ENDOSCOPY UPPER ENDOSCOPY Consent: Indications for the procedure and potential complications of bleeding, perforation, reaction to medications and missed diagnosis were discussed with the patient and informed consent was obtained. Instrument: Olympus GIF H 190 J mid size upper endoscope Monitoring: Vital signs and clinical assessment, continuous EKG monitoring, Pulse oximetry, Carbon Dioxide monitoring and blood pressure monitoring were done throughout the procedure. Procedure: The patient was placed in the left lateral decubitis position and pre-procedure medications were administered and a bite block was placed. The endoscope was inserted into the mouth and advanced under direct vision to the third part of duodenum. A careful inspection was made as the upper endoscope was withdrawn including a retroflexed examination of the proximal stomach; Findings and interventions are described below. Findings: Larynx:normal Esophagus: GE junction at 33 cm, diaphragm hiatus at 35 cm, consistent with 2 cm sliding hiatal hernia, esophagitis noted around GEJ with small flat varices which collapsed with air insufflation. No barretts tissue seen. schatzki ring noted, non obstructive. Stomach: Patchy gastric erythema with few erosions in the antrum. Biopsies were obtained. Grade 2 flap valve on retroflexed examination of the cardia. There was also mosaic pattern consistent with portal hypertensive gastropathy Duodenum: Bulb edema and erythema consistent with duodenitis or portal congestion, bx taken Intervention: Biopsies as noted above Impression/Findings: duodenitis erosive gastritis portal hypertensive gastropathy esophagitis hiatal hernia schatzki ring PLAN: check compliance with PPI, consider changing prep if H pylori pos then treat make sure up to date with her liver screening and US scans
--- NOTE | 2023-02-12 12:01 | HO.ANESPROP2 ---
[facility] Active Problems Active Problems: All Active Problems (Updated 02/10/23 @ 09:24 by FERNANDO Pedersen) RUQ abdominal pain (Acute) Irritable bowel syndrome with diarrhea (Acute) Abdominal bloating (Acute) Colon cancer screening (Acute) Fibroadenoma of right breast (Acute) GERD (gastroesophageal reflux disease) (Acute) Nix's esophagus (Acute) Primary biliary cholangitis with systemic sclerosis (Acute) Epigastric burning sensation (Acute) Past Medical History Medical History Asthma COVID-19 vaccine series completed Diabetes Colon cancer screening Fibroadenoma of right breast Epigastric burning sensation 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 GERD (gastroesophageal reflux disease) IBS (irritable bowel syndrome) Functional capacity: independent ambulation Family History Family History Father Family history of brain aneurysm Mother Myocardial infarct Family/Other Breast cancer Family history of problems with anesthesia: No Surgical History Surgical History History of right breast biopsy (07/26/18) History of back surgery (08/2017) History of eye surgery History of esophagogastroduodenoscopy (EGD) (12/20/17) History of colonoscopy (10/2008) History of Problems with Anesthesia: No Social History Social History Household Members: Family and Children Alcohol intake: current Alcohol intake frequency: does not drink Patient Tobacco Use Status: Never used Tobacco Meds Allergies Allergy/AdvReac Type Severity Reaction Status Date / Time Iodinated Contrast Media Allergy Mild RASH Verified 02/10/23 09:01 [IV Dye, Iodine Containing] Active Medications: Current Medications Lactated Ringer's (Lr) 1,000 mls @ 50 mls/hr IVCONT .Q20H B[place]LEY Last Admin: 02/12/23 10:37 Dose: 50 mls/hr Home Medications Medication Instructions Recorded Confirmed Last Taken Type amlodipine 10 mg tablet 10 mg PO QAM 08/21/20 05/28/22 04/04/21 05:30 History atorvastatin 40 mg tablet 40 mg PO BEDTIME 08/21/20 05/28/22 Unknown History calcium citrate 200 mg 1 tab PO DAILY 08/21/20 05/28/22 Unknown History calcium-vitamin D3 6.25 mcg (250 unit) tablet cholecalciferol (vitamin D3) 25 25 mcg PO QAM 08/21/20 05/28/22 Unknown History mcg (1,000 unit) tablet fluticasone propionate 220 1 inh inhalation BID 08/21/20 05/28/22 Unknown History mcg/actuation HFA aerosol inhaler lancets 33 gauge #100 ea 08/21/20 04/08/22 Unknown History lisinopril 5 mg tablet 5 mg PO DAILY 08/21/20 05/28/22 02/12/23 History metformin 500 mg tablet,extended 1,000 mg PO BID 08/21/20 05/28/22 Unknown History release 24 hr sertraline 25 mg tablet 25 mg PO DAILY 08/21/20 05/28/22 Unknown History ursodiol 300 mg capsule 300 mg PO BID 08/21/20 05/28/22 Unknown History tramadol 50 mg tablet 50 mg PO BID PRN Pain 02/18/21 05/28/22 Unknown History aspirin 81 mg tablet,delayed 81 mg PO DAILY 02/26/21 05/28/22 02/09/23 History release (Adult Low Dose Aspirin) albuterol sulfate 90 mcg/actuation 2 puff inhalation Q4H PRN Wheezing 04/08/22 05/28/22 Unknown History aerosol inhaler (Ventolin HFA) baclofen 10 mg tablet 10 mg PO TID 05/28/22 05/28/22 Unknown History ferrous sulfate 324 mg (65 mg 1 tab PO Q OTHER DAY 05/28/22 05/28/22 Unknown History iron) tablet,delayed release alendronate 70 mg tablet 70 mg PO QWEEK 02/10/23 Unknown History ascorbic acid (vitamin C) 500 mg 500 mg PO Q OTHER DAY 02/10/23 Unknown History tablet (Vitamin C) fluticasone propionate 50 spray intranasal 02/10/23 Unknown History mcg/actuation nasal spray,suspension loratadine 10 mg tablet 10 mg PO DAILY PRN 02/10/23 Unknown History Exam Exam Date and Time: February 12, 2023 120 Height,Weight and Vital Signs: Height 4 ft 11 in Weight 58.513 kg Last Vital Signs Temp 98.3 F 02/12/23 10:18 Pulse 65 02/12/23 10:18 Resp 19 02/12/23 10:18 BP 154/98 H 02/12/23 10:18 Pulse Ox 98 02/12/23 10:18 O2 Del Method Room Air 02/12/23 10:18 Airway Mallampati Class: III TM Dist: >3cm Neck ROM: Full Heart: RRR Lungs: CTA Assessment and Plan Assessment Anesthesia Assessment: Anesthesia Plan Discussed Final Anesthetic Review Family History of Problems with Anesthesia: No History of Problems with Anesthesia: No NPO: Yes ASA Class: II Final Preanesthetic Review: Meds/Allgs Chart Reviewed, Consent Obtained/Reviewed and Anes Risks/Benef Reviewed Patient Risk: Low Procedure Risk: Low Anesthetic Plan Anesthetic Plan: MAC: Disposition: Standard PACU
[2023-02-12 12:12] VITALS: BP 86/38; PULSE 81; RESP 16; TEMP 36.4; O2SAT 96
[2023-02-12 12:27] VITALS: BP 99/39; PULSE 71; RESP 16; O2SAT 98
[2023-02-12 12:42] VITALS: BP 116/46; PULSE 70; RESP 16; O2SAT 98
[2023-02-12 12:57] VITALS: BP 124/49; PULSE 73; RESP 16; TEMP 36.6; O2SAT 99
[2023-02-12 14:14] LABS: Glucose, Whole Blood 83 mg/dL (60-115)
== END 2023-02-12 13:16 | disposition home or self-care (01) ==
PROVIDERS: PCP Student in an Organized Health Care Education/Training Program; Visit Provider Internal Medicine Gastroenterology
PROC: 0DJ08ZZ Inspection of Upper Intestinal Tract, Via Natural or Artificial Opening Endoscopic (ICD-10-PCS; CPT 43235; principal; 2023-02-12 11:40)
DX: K74.3 Primary biliary cirrhosis (principal); K21.9 Gastro-esophageal reflux disease without esophagitis; K29.80 Duodenitis without bleeding; K29.60 Other gastritis without bleeding; K20.80 Other esophagitis without bleeding; K22.2 Esophageal obstruction; I85.00 Esophageal varices without bleeding; K76.6 Portal hypertension; K31.89 Other diseases of stomach and duodenum; K44.9 Diaphragmatic hernia without obstruction or gangrene; Z79.899 Other long term (current) drug therapy
CPT/HCPCS: 43239; 82947; 88305; 88342

== ENCOUNTER → 2023-02-12 09:21 | Outpatient (BNV) | payer OTHER, SELFPAY | PROVIDERS: PCP Student in an Organized Health Care Education/Training Program; Visit Provider Internal Medicine Gastroenterology | DX: R10.9 Unspecified abdominal pain (principal); K74.3 Primary biliary cirrhosis; K22.2 Esophageal obstruction; K29.90 Gastroduodenitis, unspecified, without bleeding; K20.90 Esophagitis, unspecified without bleeding | CPT/HCPCS: 43239 ==

== ENCOUNTER → 2023-02-26 09:25 | Outpatient (REF) | payer OTHER, SELFPAY | LOC: HO.NUCMED 09:25 | PROVIDERS: PCP Student in an Organized Health Care Education/Training Program; Visit Provider Nurse Practitioner | DX: K22.70 Barrett's esophagus without dysplasia (principal); K83.09 Other cholangitis; M34.9 Systemic sclerosis, unspecified; R10.11 Right upper quadrant pain | CPT/HCPCS: 78227; A9537; J2805 ==

== ENCOUNTER 2023-03-03 14:15 | Outpatient (AMB) | payer OTHER, SELFPAY ==
--- NOTE | 2023-03-03 14:17 | MHC.OFFVIS ---
Intake Vital Signs 03/03/23 14:19 Height 4 ft 11 in Weight 130 lb 8.218 oz BMI 26.4 BP 146/65 H Blood Pressure Location Lt brachial Position Sitting Pulse 72 Intake Visit Reasons: s/p egd Jono Intake Note: Patient presents to in office visit today in post operative follow up of EGD. CC: Patient underwent EGD on 02/12/[address] Ferguson. She reports pain form RUQ abdominal pain, and occasional nausea. Denies other GI concerns today. 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 LIve She says she is not doing well, my liver is getting worse and worse, and they have to take out my GB. She is treated for PBC at [facility], it used to be Dr. Gee, but he left and there is a Nigerian donny. But, she continues to follow with them. She was told at the [facility] ER that she needs her GB out. I will try to get those records. I will order a HIDA scan. She has pain that starts in the epigastrum and radiates to the RUQ with eating. This will last about 1 hour after eating and onsets 1/2 hour after eating. She is only taking creon 1 tab bid, I want her to increase to 2 tabs bid. Ordering HIDA, EGD, getting records, chem panel. Has upcoming US may be able to cancel depending on [facility] imaging. ROV 4 weeks. (2) Nix's esophagus: Comment: On biopsy 2018 EGD, nonobstructing partial Schatzki's ring, 2019 EGD no metaplasia but repeat in 3 years in case of sampling error since possibel SSBE visualized Code(s): K22.70 - Nix's esophagus without dysplasia (3) Primary biliary cholangitis with systemic sclerosis: Comment: Treated by Dr. Campuzano at [facility]. Code(s): K83.09 - Other cholangitis; M34.9 - Systemic sclerosis, unspecified Orders: Orders NM hepatobiliary w pharm 02/10/23 K22.70 - Nix's esophagus without dysplasia, K83.09 - Other cholangit is, M34.9 - System ic sclerosis, unsp ecified, R10.11 - Right upper quadra nt pain Comprehensive Met. Panel 02/10/23 R10.11 - Right upp er quadrant pain, K22.70 - Nix's esophagus without dysplasia Lipase 02/10/23 R10.11 - Right upp er quadrant pain, K22.70 - Nix's esophagus without dysplasia EGD with Guillory - G I Use Only 02/10/23 K22.70 - Nix's esophagus without dysplasia Medications: Refilled junwgk-ygnxngux-oh ylase 24,000-76,00 0 -120,000 unit (C reon) 1 cap PO QID 120 c aps 6RF K58.9 - Irritable bowel syndrome wit hout diarrhea simethicone (Gas R elief (simethicone )) 180 mg PO QID 120 ea 6RF R14.0 - Abdominal distension (gaseou s) LABS: Not obtained EGD Findings: Larynx:normal Esophagus: GE junction at 33 cm, diaphragm hiatus at 35 cm, consistent with 2 cm sliding hiatal hernia, esophagitis noted around GEJ with small flat varices which collapsed with air insufflation. No barretts tissue seen. schatzki ring noted, non obstructive. Stomach: Patchy gastric erythema with few erosions in the antrum. Biopsies were obtained. Grade 2 flap valve on retroflexed examination of the cardia. There was also mosaic pattern consistent with portal hypertensive gastropathy Duodenum: Bulb edema and erythema consistent with duodenitis or portal congestion, bx taken Intervention: Biopsies as noted above Impression/Findings: duodenitis erosive gastritis portal hypertensive gastropathy esophagitis hiatal hernia schatzki ring PLAN: check compliance with PPI, consider changing prep if H pylori pos then treat make sure up to date with her liver screening and US scan BIOPSY Received: 02/12/23 Diagnosis A. Duodenum, biopsy: Chronic active duodenitis. B. Stomach, biopsy: Antral-type mucosa with moderate chronic, focally active, inflammation; no Helicobacter organisms seen. HIDA SCAN 02/26/23 IMPRESSION: Visualization of the gallbladder is evidence of a patent cystic duct and strong evidence against the diagnosis of acute cholecystitis. The common bile duct is patent. Gallbladder emptying and ejection fraction are normal. Liver function appears normal. TODAY'S VISIT Haitian #Marquita Live We review the results and I let her know that I think the erosive gastritis is the cause of her pain; not the GB. The HIDA scan was okay. We will start carafate q noon 20mg and go from here. May cause CIC, will eval going forward as she has diarrhea as a baseline. The gastritis is not HP, it may be from a variety of causes including potentially her or city on iron supplementation. However, these are necessary so we will treat around the symptoms. She will be seeing her liver specialist and having some imaging done next week. This is good as I do not want step on their toes I want her to continue to have the best treatment for her primary biliary cholangitis from the expert sources. She continues on her Dexilant once a day. She also has Creon and simethicone for general bloating. 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 GERD (gastroesophageal reflux disease) IBS (irritable bowel syndrome) Surgical History History of right breast biopsy (07/26/18) History of back surgery (08/2017) History of eye surgery History of esophagogastroduodenoscopy (EGD) (12/20/17) History of colonoscopy (10/2008) Family History Father Family history of brain aneurysm Mother Myocardial infarct Family/Other Breast cancer Social History Household Members: Family and Children Alcohol intake: current Alcohol intake frequency: does not drink Patient Tobacco Use Status: Never used Tobacco Review of Systems Const Denies fatigue, Denies fever(s), Denies night sweats, Denies poor appetite and Denies weight loss Eyes Details: glasses Reports requires corrective lenses ENT Reports Normal hearing present, Denies dental pain, Denies dysphagia, Denies hearing loss, Denies mouth pain, Denies odynophagia, Denies throat swelling, Denies tongue swelling and Reports other (Dentition adequate) Card Reports no additional complaints Resp Reports no additional complaints GI Reports abdominal pain, Denies melena, Reports bloating, Denies hematochezia, Denies constipation, Denies GI cramping, Denies dysphagia, Denies excessive flatus, Denies early satiety, Reports heartburn, Denies diarrhea, Reports nausea, Denies odynophagia, Denies vomiting and Denies hematemesis Skin/Breast Denies pruritus, Denies lesions, Denies rash and Denies jaundice Neuro Reports Normal hearing present and Denies Abnormal speech present Endo Denies fatigue Aller/Immun Denies throat swelling and Denies tongue swelling Physical Exam Vital Signs: Last Vital Signs Pulse 72 03/03/23 14:19 BP 146/65 H 03/03/23 14:19 BMI result Body Mass Index 26.4 Const General: cooperative, no acute distress, well developed and well groomed Nutritional Appearance: well nourished and overweight Orientation/consciousness: oriented to person, oriented to place and oriented to time Limitations: language barrier HEENT Head: Yes normocephalic and Yes atraumatic Eyes General: appearance normal, both eyes and all related structures Pupils: Equal, round and reactive pupils present Neck Neck: Yes normal visual inspection and Yes no lymphadenopathy Thyroid: Thyroid normal Resp Effort & Inspection: normal respiratory effort and able to speak in complete sentences Auscultation: clear to auscultation bilaterally Cardio Rate: regular rate Rhythm: regular rhythm Heart sounds: Normal, physiologic split S2 sound present Peripheral pulses: radial pulses present and posterior tibial pulses present GI Inspection: No distended, No Abdominal panniculus present and Yes obesity Palpation (GI): Soft to palpation, Tenderness to palpation present (GI) in the RUQ, no guarding, not rigid, No hepatosplenomegaly present and Hepatosplenomegaly present Percussion: Yes normal to percussion Auscultation: normal bowel sounds Rectal Exam - Female: deferred Skin General skin exam: no rashes or lesions noted, turgor normal, skin not dry, no jaundice, No spider nevi and no striae Rashes: no rashes Nails: normal Neuro General: oriented to person, oriented to place and oriented to time Cranial nerves: Yes Equal, round and reactive pupils present and Yes Normal hearing present Speech: No Abnormal speech present Extrem General: Yes normal to inspection, No clubbing, No cyanosis and No edema Psych Appearance: grossly normal and well kempt Mental Status: mental status grossly normal Speech and movement: Normal speech and movement present Affect: normal affect Attitude: cooperative Thought process: Normal thought process present and not confabulating Thought content: Normal thought content present Insight: Fair insight present (Psych) and Limited insight present (Psych) Judgement: Fair judgement present (Psych) and Limited judgement present (Psych) Assessment & Plan Assessment & Plan (1) Erosive gastritis: Code(s): K29.60 - Other gastritis without bleeding Plan: Haitian #Marquita Live We review the results and I let her know that I think the erosive gastritis is the cause of her pain; not the GB. The HIDA scan was okay. We will start carafate q noon 20mg and go from here. May cause CIC, will eval going forward as she has diarrhea as a baseline. The gastritis is not HP, it may be from a variety of causes including potentially her or city on iron supplementation. However, these are necessary so we will treat around the symptoms. She will be seeing her liver specialist and having some imaging done next week. This is good as I do not want step on their toes I want her to continue to have the best treatment for her primary biliary cholangitis from the expert sources. She continues on her Dexilant once a day. She also has Creon and simethicone for general bloating. Return office visit in 2 weeks (2) RUQ abdominal pain: Code(s): R10.11 - Right upper quadrant pain (3) Irritable bowel syndrome with diarrhea: Code(s): K58.0 - Irritable bowel syndrome with diarrhea (4) GERD (gastroesophageal reflux disease): Code(s): K21.9 - Gastro-esophageal reflux disease without esophagitis (5) Nix's esophagus: Comment: On biopsy 2018 EGD, nonobstructing partial Schatzki's ring, 2019 EGD no metaplasia but repeat in 3 years in case of sampling error since possibel SSBE visualized Code(s): K22.70 - Nix's esophagus without dysplasia Medications: New sucralfate (Carafate) 20 mL PO QNOON 1,000 mL 3RF K29.60 - Other gastritis without bleeding Coding Level of Care Code Est Pt Level 3 (19386) Diagnoses Erosive gastritis K29.60 RUQ abdominal pain R10.11 Irritable bowel syndrome with diarrhea K58.0 GERD (gastroesophageal reflux disease) K21.9 Nix's esophagus K22.70
[2023-03-03 14:19] VITALS: BP 146/65; PULSE 72; BMI 26.4
== END 2023-03-03 14:50 | disposition home or self-care (01) ==
PROVIDERS: PCP Internal Medicine; Visit Provider Nurse Practitioner
DX: K29.60 Other gastritis without bleeding (principal); R10.11 Right upper quadrant pain; K58.0 Irritable bowel syndrome with diarrhea; K21.9 Gastro-esophageal reflux disease without esophagitis; K22.70 Barrett's esophagus without dysplasia
CPT/HCPCS: 99213

== ENCOUNTER → 2023-03-03 14:15 | Outpatient (BNVA) | payer OTHER, SELFPAY | PROVIDERS: PCP Internal Medicine; Visit Provider Nurse Practitioner | DX: K29.60 Other gastritis without bleeding (principal); K58.0 Irritable bowel syndrome with diarrhea; K21.9 Gastro-esophageal reflux disease without esophagitis; K22.70 Barrett's esophagus without dysplasia; R10.11 Right upper quadrant pain | CPT/HCPCS: 99212 ==

== ENCOUNTER 2023-04-21 18:07 | Outpatient (REF) | payer OTHER, SELFPAY ==
[2023-04-23 19:53] LABS: C. trachomatis RNA TMA NOT DETECTED (NOT DETECTED); N. gonorrhoeae RNA TMA NOT DETECTED (NOT DETECTED)
== END 2023-04-21 18:08 | disposition home or self-care (01) ==
LOC: HO.HHCLNP 18:07
PROVIDERS: Visit Provider Internal Medicine
DX: N76.1 Subacute and chronic vaginitis (principal)
CPT/HCPCS: 36415; 81513; 87491; 87591

== ENCOUNTER 2023-04-24 09:59 | Outpatient (REF) | payer OTHER, SELFPAY ==
--- NOTE | ~2023-04-24 | MM_ITS ---
EXAMINATION: MM SCREENING DIGITAL BREAST TOMOSYNTHESIS, BILATERAL CLINICAL INFORMATION: Screening. Asymptomatic. COMPARISON: Mammography: This study is compared with prior exams dating back to 2017. TECHNIQUE: Digital breast tomosynthesis is performed in both the craniocaudal and mediolateral oblique views along with computer-aided detection (CAD). Synthesized 2D images are generated from the tomosynthesis. FINDINGS: There are scattered areas of fibroglandular density (ACR BI-RADS breast composition Category b). There are no significant masses, abnormal calcifications, or other abnormalities. There is tissue marker present in the right breast from prior benign percutaneous biopsy. MM/MM tomosynthesis screening BI IMPRESSION: No mammographic evidence of malignancy. ASSESSMENT: BI-RADS BI-RADS 2 - Benign Findings RECOMMENDATION: Routine annual mammography screening. 1 year F/U This examination should not preclude the clinical evaluation of a suspicious palpable abnormality. This patient's information was entered into a reminder system with a target due date for their next mammogram.
== END 2023-04-24 10:00 | disposition home or self-care (01) ==
LOC: HO.MAMMO 09:59
PROVIDERS: PCP Internal Medicine; Visit Provider Internal Medicine
DX: Z12.31 Encounter for screening mammogram for malignant neoplasm of breast (principal)
CPT/HCPCS: 77063; 77067

== ENCOUNTER → 2023-04-24 10:15 | Outpatient (BNV) | payer OTHER, SELFPAY | PROVIDERS: PCP Internal Medicine; Visit Provider Radiology Diagnostic Radiology | DX: Z12.31 Encounter for screening mammogram for malignant neoplasm of breast (principal) | CPT/HCPCS: 77063; 77067 ==

== ENCOUNTER 2023-04-29 08:49 | Outpatient (AMB) | payer OTHER, SELFPAY ==
[2023-04-29 08:58] VITALS: BP 120/46; PULSE 74; BMI 26.3
--- NOTE | 2023-04-29 08:58 | A.OFFVIS_ITS ---
Intake Vital Signs 04/29/23 08:58 Height 4 ft 11 in Weight 130 lb 1.164 oz BMI 26.3 BP 120/46 L Blood Pressure Location Rt brachial Position Sitting Pulse 74 Intake Visit Reasons: 2 Weeks Follow up Intake Note: Patient presents to in office visit today in follow up abdominal pain. CC: Patient was started on carafate and she states the medication has been working well and she is doing well. Denies any new GI concerns today. [employer] Required: Yes Accompanied by: self Allergies Iodinated Contrast Media [IV Dye, Iodine Containing] Allergy (Mild, Verified 04/29/23 09:14) RASH HPI 2 Weeks Follow up HPI Details Assessment & Plan (1) Erosive gastritis: Code(s): K29.60 - Other gastritis without bleeding Plan: [place] [employer] [employer] We review the results and I let her know that I think the erosive gastritis is the cause of her pain; not the GB. The HIDA scan was okay. We will start carafate q noon 20mg and go from here. May cause CIC, will eval going forward as she has diarrhea as a baseline. The gastritis is not HP, it may be from a variety of causes including potentially her or city on iron supplementation. However, these are necessary so we will treat around the symptoms. She will be seeing her liver specialist and having some imaging done next week. This is good as I do not want step on their toes I want her to continue to have the best treatment for her primary biliary cholangitis from the expert sources. She continues on her Dexilant once a day. She also has Creon and simethicone for general bloating. Return office visit in 2 weeks (2) RUQ abdominal pain: Code(s): R10.11 - Right upper quadrant pain (3) Irritable bowel syndrome with diarrh ea: Code(s): K58.0 - Irritable bowel syndrome with diarrhea (4) GERD (gastroesophageal reflux diseas e): Code(s): K21.9 - Gastro-esophageal reflux disease without esophagitis (5) Nix's esophagus: Comment: On biopsy 2018 EGD, nonobstructing partial Schatzki's ring, 2019 EGD no metaplasia but repeat in 3 years in case of sampling error since possibel SSBE visualized Code(s): K22.70 - Nix's esophagus without dysplasia Medications: New sucralfate (Carafa te) 20 mL PO QNOON 1, 000 mL 3RF K29.60 - Other gas tritis without ble eding TODAY'S VISIT [place] [employer] She is now feeling well with the sucralfate and this has completely a alleviated her upper abdominal pain; so obviously we erosive gastritis was the source. She also continues on her Dexilant, Creon, and simethicone with good control of her GERD in IBS. Using the sucralfate has not constipated her. Return office visit in 6 months Only new problem is that she developed a skin rash for which she was given a cre am and a vaginal infection which is being treated with Flagyl. [facility] Medical History Asthma COVID-19 vaccine series completed Diabetes Colon cancer screening Fibroadenoma of right breast Epigastric burning sensation 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 GERD (gastroesophageal reflux disease) IBS (irritable bowel syndrome) Surgical History (Updated 04/29/23 @ 09:32 by FERNANDO Pedersen) History of right breast biopsy (07/26/18) History of back surgery (08/2017) History of eye surgery History of esophagogastroduodenoscopy (EGD) (12/20/17) History of colonoscopy (10/2008) Family History Father Family history of brain aneurysm Mother Myocardial infarct Family/Other Breast cancer Social History Household Members: Family and Children Alcohol intake: current Alcohol intake frequency: does not drink Patient Tobacco Use Status: Never used Tobacco Review of Systems Const Denies fatigue, Denies fever(s), Denies night sweats, Denies poor appetite and Denies weight loss Eyes Details: glasses Reports requires corrective lenses ENT Reports Normal hearing present, Denies dental pain, Denies dysphagia, Denies hearing loss, Denies mouth pain, Denies odynophagia, Denies throat swelling, Denies tongue swelling and Reports other (Dentition adequate) Card Reports no additional complaints Resp Reports no additional complaints GI Denies abdominal pain, Denies melena, Reports bloating, Denies hematochezia, Denies constipation, Denies GI cramping, Denies dysphagia, Denies excessive flatus, Denies early satiety, Reports heartburn, Reports diarrhea, Denies nausea , Denies odynophagia, Denies vomiting and Denies hematemesis Skin/Breast Denies pruritus, Denies lesions, Denies rash and Denies jaundice Neuro Reports Normal hearing present and Denies Abnormal speech present Endo Denies fatigue Aller/Immun Denies throat swelling and Denies tongue swelling Physical Exam Vital Signs: Last Vital Signs Pulse 74 04/29/23 08:58 BP 120/46 L 04/29/23 08:58 BMI result Body Mass Index 26.3 Const General: cooperative, no acute distress, well developed and well groomed Nutritional Appearance: average body habitus and well nourished Orientation/consciousness: oriented to person, oriented to place and oriented to time Limitations: language barrier HEENT Head: Yes normocephalic and Yes atraumatic Eyes General: appearance normal, both eyes and all related structures Pupils: Equal, round and reactive pupils present Neck Neck: Yes normal visual inspection and Yes no lymphadenopathy Thyroid: Thyroid normal Resp Effort & Inspection: normal respiratory effort and able to speak in complete sentences Auscultation: clear to auscultation bilaterally Cardio Rate: regular rate Rhythm: regular rhythm Heart sounds: Normal, physiologic split S2 sound present Peripheral pulses: radial pulses present and posterior tibial pulses present GI Inspection: No distended and No Abdominal panniculus present Palpation (GI): Soft to palpation, nontender, no guarding, not rigid and No hepatosplenomegaly present Percussion: Yes normal to percussion Auscultation: normal bowel sounds Rectal Exam - Female: deferred Skin General skin exam: no rashes or lesions noted, turgor normal, skin not dry, no jaundice, No spider nevi and no striae Rashes: no rashes Nails: normal Neuro General: oriented to person, oriented to place and oriented to time Cranial nerves: Yes Equal, round and reactive pupils present and Yes Normal hearing present Speech: No Abnormal speech present Extrem General: Yes normal to inspection, No clubbing, No cyanosis and No edema Psych Appearance: grossly normal and well kempt Mental Status: mental status grossly normal Speech and movement: Normal speech and movement present Affect: normal affect Attitude: cooperative Thought process: Normal thought process present and not confabulating Thought content: Normal thought content present Insight: Limited insight present (Psych) Judgement: Limited judgement present (Psych) Assessment & Plan Assessment & Plan (1) Erosive gastritis: Code(s): K29.60 - Other gastritis without bleeding (2) RUQ abdominal pain: Code(s): R10.11 - Right upper quadrant pain (3) Irritable bowel syndrome with diarrhea: Code(s): K58.0 - Irritable bowel syndrome with diarrhea (4) Abdominal bloating: Code(s): R14.0 - Abdominal distension (gaseous) (5) GERD (gastroesophageal reflux disease): Code(s): K21.9 - Gastro-esophageal reflux disease without esophagitis (6) Nix's esophagus: Comment: On biopsy 2018 EGD, nonobstructing partial Schatzki's ring, 2019 EGD no metaplasia but repeat in 3 years in case of sampling error since possibel SSBE visualized Code(s): K22.70 - Nix's esophagus without dysplasia (7) Primary biliary cholangitis with systemic sclerosis: Comment: Treated by Dr. Campuzano at [facility]. Code(s): K83.09 - Other cholangitis; M34.9 - Systemic sclerosis, unspecified (8) Epigastric burning sensation: Comment: Benign EGD 2019 except for Nix's esophagus and negative gastric emptying study 2019 Code(s): R10.13 - Epigastric pain Plan [place] [employer] She is now feeling well with the sucralfate and this has completely a alleviated her upper abdominal pain; so obviously we erosive gastritis was the source. She also continues on her Dexilant, Creon, and simethicone with good control of her GERD in IBS. Using the sucralfate has not constipated her. She continues to follow with [facility] for her primary biliary sclerosis. Return office visit in 6 months Only new problem is that she developed a skin rash for which she was given a cream and a vaginal infection which is being treated with Flagyl. Coding Level of Care Code Est Pt Level 3 (65732) Diagnoses Erosive gastritis K29.60 RUQ abdominal pain R10.11 Irritable bowel syndrome with diarrhea K58.0 Abdominal bloating R14.0 GERD (gastroesophageal reflux disease) K21.9 Nix's esophagus K22.70 Primary biliary cholangitis with systemic sclerosis K83.09; M34.9 Epigastric burning sensation R10.13
== END 2023-04-29 09:48 | disposition home or self-care (01) ==
PROVIDERS: PCP Internal Medicine; Visit Provider Nurse Practitioner
DX: K29.60 Other gastritis without bleeding (principal); R10.11 Right upper quadrant pain; K58.0 Irritable bowel syndrome with diarrhea; R14.0 Abdominal distension (gaseous); K21.9 Gastro-esophageal reflux disease without esophagitis; K22.70 Barrett's esophagus without dysplasia; K83.09 Other cholangitis; M34.9 Systemic sclerosis, unspecified; R10.13 Epigastric pain
CPT/HCPCS: 99213

== ENCOUNTER → 2023-04-29 08:49 | Outpatient (BNVA) | payer OTHER, SELFPAY | PROVIDERS: PCP Internal Medicine; Visit Provider Nurse Practitioner | DX: R10.11 Right upper quadrant pain (principal); R10.13 Epigastric pain; R14.0 Abdominal distension (gaseous); K29.60 Other gastritis without bleeding; K58.0 Irritable bowel syndrome with diarrhea; K21.9 Gastro-esophageal reflux disease without esophagitis; K22.70 Barrett's esophagus without dysplasia; K83.09 Other cholangitis; M34.9 Systemic sclerosis, unspecified | CPT/HCPCS: 99212 ==

== ENCOUNTER 2023-05-19 09:00 | Outpatient (REF) | payer OTHER, SELFPAY | END 2023-05-19 09:01 | disposition home or self-care (01) | LOC: HO.HOSX 09:00 | PROVIDERS: Visit Provider Orthopaedic Surgery | DX: Z13.89 Encounter for screening for other disorder (principal) ==

== ENCOUNTER 2023-07-02 08:11 | Outpatient (REF) | payer OTHER, SELFPAY ==
--- NOTE | ~2023-07-02 | CT_ITS ---
EXAMINATION: CT ABDOMEN AND PELVIS WITHOUT CONTRAST CLINICAL INFORMATION: 68-year-old female with left flank pain. Questionable stone versus mass COMPARISON: None available. TECHNIQUE: Multidetector volumetric imaging was performed from the superior aspect of the liver through the pubic symphysis. Sagittal and coronal reformatted images were obtained on the technologist's workstation. This CT examination was performed using dose optimization techniques as appropriate, variously including the following: *Automated exposure control *Adjustment of mA and/or kV according to patient size (this includes techniques or standardized protocols for targeted exams where dose is matched to indication/reason for exam; i.e. extremities or head) *Use of iterative reconstruction technique DLP: 564 mGy-cm FINDINGS: LUNG BASES: The visualized lung bases are unremarkable. LIVER, GALLBLADDER, AND BILIARY TREE: Liver is enlarged heterogeneous with nodular contour suggestive for cirrhotic liver there is no intrahepatic masses or ductal dilatation seen. Parenchymal calcifications seen subcapsular in the right lobe. There is cholelithiasis without evidence of cholecystitis. CBD is not dilated without evidence of choledocholithiasis. PANCREAS: Unremarkable. SPLEEN: Spleen revealed numerous calcifications, most likely granulomatous in nature ADRENAL GLANDS: Unremarkable. KIDNEYS AND URETERS: There is no hydroureteronephrosis. No evidence of nephrolithiasis. Right kidney is unremarkable. Left kidney revealed a few low-attenuation lesions most likely cysts with the largest in the lower pole measured 3.1 x 3.0 cm with attenuation of minus 6HU. No obvious solid lesions are identified. Ureters are nondilated. BLADDER: Unremarkable. GASTROINTESTINAL TRACT: The small and large bowel are unremarkable. The appendix is unremarkable. ABDOMINAL WALL: No significant hernia is appreciated. LYMPH NODES: Normal. VASCULAR: Abdominal aorta is nondilated, calcified. PELVIC VISCERA: There is cystic mass in the right adnexa, measured 5.4 x 5.4 x 5.8 cm. OSSEOUS STRUCTURES: There are diffuse osteopenia is status post kyphoplasty of L5, L4, L3, L1. There is mild wedge-shaped deformity of L2. CT/CT abdomen pelvis wo IV con IMPRESSION: 1. Cholelithiasis without cholecystitis. 2. Left renal cysts. 3. Cystic mass in the right adnexa, correlate with pelvic ultrasound. 4. Cirrhosis of liver, without evidence of portal hypertension. 5. Numerous splenic calcifications, due to granulomatous disease. 6. Diffuse osteopenia with status post kyphoplasty of L5, L4, L3, L1. Mild wedge-shaped deformity of L2. Fleischner guidelines were followed.
== END 2023-07-02 08:12 | disposition home or self-care (01) ==
LOC: HO.CT 08:11
PROVIDERS: PCP Internal Medicine; Visit Provider Emergency Medicine
DX: R10.12 Left upper quadrant pain (principal)
CPT/HCPCS: 74176

== ENCOUNTER 2023-07-27 14:15 | Outpatient (REF) | payer OTHER, SELFPAY ==
--- NOTE | ~2023-07-27 | US_ITS ---
EXAMINATION: US PELVIS CLINICAL INFORMATION: Follow-up right ovarian cyst. COMPARISON: CT abdomen and pelvis dated 07/02/2023; pelvic ultrasound dated 12/04/2010. TECHNIQUE: Ultrasound of the pelvis is performed using both transabdominal and transvaginal transducers along with Doppler. Transvaginal imaging is performed due to inadequate visualization transabdominally. FINDINGS: Uterus: The uterus is anteverted and anteflexed. The uterus measures 5.2 x 3.0 x 3.0 cm. Nabothian cysts are seen within the cervix. The double wall endometrial thickness is 2 mm. The uterus is smooth in contour and has heterogeneous myometrial echogenicity. No visible fibroid. Adnexa: Both ovaries are visualized. There is prominent adnexal vasculature. There is no ovarian torsion. There is no pelvic ascites or fluid collection. Right ovary measures 6.1 x 6.5 x 5.1 cm, volume 110.8 mL. The right ovary contains a 5.7 x 4.8 x 5.3 cm simple appearing cyst. This is suboptimally defined due to overlapping bowel gas. Left ovary measures 1.5 x 0.6 x 0.7 cm, volume 0.3 mL. US/US pelvic and transvaginal IMPRESSION: Ultrasound imaging confirms a 5.7 cm in maximal diameter simple postmenopausal cyst. This is of concern for possible low-grade cystic neoplasm. Recommend Gynecology consultation at this time and follow-up ultrasound examination in 3-6 months to ensure stability. Alternatively, MRI may be performed with intravenous contrast for improved characterization.
== END 2023-07-27 14:16 | disposition home or self-care (01) ==
LOC: HO.US 14:15
PROVIDERS: PCP Internal Medicine; Visit Provider Internal Medicine
DX: N83.201 Unspecified ovarian cyst, right side (principal)
CPT/HCPCS: 76830; 76856

== ENCOUNTER 2023-09-01 11:08 | Outpatient (AMB) | payer OTHER, SELFPAY ==
--- NOTE | 2023-09-01 11:24 | MHC.OFFVIS ---
Intake Intake Visit Reasons: renal cysts Intake Note: New Patient presents for initial visit for renal cysts Urology Medications: none Blood Thinner: aspirin Occupational Medicine Specialist Required: Yes Occupational Medicine Specialist Name: ADIA ALMONTECLAUDIA Accompanied by: Self / Same As Patient Allergies Iodinated Contrast Media [IV Dye, Iodine Containing] Allergy (Mild, Verified 09/01/23 12:54) RASH Medication List - Last Reconciled 09/01/23 by BUTCH Harris-JINA albuterol sulfate 90 mcg/actuation (Ventolin HFA) 2 puffs inhalation Q4H PRN alendronate 70 mg PO QWEEK amlodipine 10 mg PO QAM ascorbic acid (vitamin C) (Vitamin C) 500 mg PO Q OTHER DAY aspirin (Adult Low Dose Aspirin) 81 mg PO DAILY atorvastatin 40 mg PO BEDTIME calcium citrate-vitamin D3 200 mg-6.25 mcg (250 unit) 1 tab PO DAILY cholecalciferol (vitamin D3) 25 mcg PO QAM dexlansoprazole (Dexilant) 60 mg PO QAM ferrous sulfate 1 tab PO Q OTHER DAY fluticasone propionate 220 mcg/actuation 1 inh inhalation BID fluticasone propionate 50 mcg/actuation sprays intranasal lancets As directed [id number] 24,000-76,000 -120,000 unit (Creon) 1 cap PO QID lisinopril 10 mg PO DAILY loratadine 10 mg PO DAILY PRN metformin ER 750 mg PO DAILY metronidazole 500 mg PO BID sertraline 25 mg PO DAILY simethicone (Gas Relief (simethicone)) 180 mg PO QID sucralfate (Carafate) 20 mL PO QNOON tramadol 50 mg PO BID PRN triamcinolone acetonide 0.1% 1 appl topical BID-TID ursodiol 300 mg PO BID HPI HPI Comments History of Present Illness Details Tameka is a pleasant 68-year-old Faroese-speaking female patient of Dr. Pacheco. She has a past medical history of asthma, diabetes, fibroadenoma of the right breast, Nix's esophagus, GERD, and IBS. She presents to the office today as a new patient for renal cyst. In discussion with the patient today she reports she had been experiencing right lower quadrant pain at which time she followed up with her PCP and a CT of the abdomen was ordered and performed. She reports recommendations were made for urology referral due to CT noting renal cyst. These results reviewed with the patient today. There is no hydroureteronephrosis. No evidence of nephrolithiasis. Right kidney is unremarkable. Left kidney revealed a few low-attenuation lesions most likely cysts with the largest in the lower pole measured 3.1 x 3.0 cm. No obvious solid lesions are identified. Ureters are nondilated. The bladder is unremarkable. Discussed at length potential causes of renal cysts. When asked she otherwise denies any bothersome urinary issues. She denies urinary urgency, urinary frequency, incontinence, nocturia, hematuria, dysuria, foul smelling urine, changes to urinary stream, flank pain, fever, and or chills.She is happy with her current voiding parameters. In office urinalysis results reviewed with the patient today. Discussed referral to rn gyn as there is a concern for possible low-grade cystic neoplasm. She reports following up with her PCP at which time a pelvic ultrasound was ordered and performed however has not yet been refer to rn gyn for further assessment evaluation. She otherwise offers no other issues or concerns at this time. [facility] Medical History Asthma COVID-19 vaccine series completed Diabetes Colon cancer screening Fibroadenoma of right breast Epigastric burning sensation 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 GERD (gastroesophageal reflux disease) IBS (irritable bowel syndrome) Surgical History History of right breast biopsy (07/26/18) History of back surgery (08/2017) History of eye surgery History of esophagogastroduodenoscopy (EGD) (12/20/17) History of colonoscopy (10/2008) Family History Father Family history of brain aneurysm Mother Myocardial infarct Family/Other Breast cancer Social History Household Members: Family and Children Alcohol intake: current Alcohol intake frequency: does not drink Patient Tobacco Use Status: Never used Tobacco Review of Systems Const Reports no additional complaints Eyes Reports no additional complaints ENT Reports no additional complaints Card Reports as per HPI Resp Reports as per HPI GI Reports as per HPI Reports as per HPI Musc Reports as per HPI Skin/Breast Reports as per HPI Neuro Reports no additional complaints Psych Reports no additional complaints Endo Reports as per HPI Romeo/Lymph Reports no additional complaints Aller/Immun Reports no additional complaints Results AMB Urinalysis, Automated UA Leukoctes 15 Mukul/uL Last Edit by [employer] R[employer] on 09/01/23 11:33 UA Nitrite Negative Last Edit by [employer] on 09/01/23 11:33 UA Urobilinogen 0.2 mg/dL Last Edit by [employer] on 09/01/23 11:33 UA Protein 15 mg/dL Last Edit by [employer] on 09/01/23 11:33 UA pH 6.0 Last Edit by [employer] on 09/01/23 11:33 UA Blood 80 Marquis/uL Last Edit by [employer] on 09/01/23 11:33 UA Specific [place] 1.015 Last Edit by [employer] on 09/01/23 11:33 UA Ketone Negative Last Edit by [employer] on 09/01/23 11:33 UA Bilirubin 1 mg/dL Last Edit by [employer] on 09/01/23 11:33 UA Glucose 0 mg/dL Last Edit by [employer] on 09/01/23 11:33 Results Reviewed Results Reviewed: Laboratory Last Values Urine pH (Auto) 6.0 09/01/23 11:32 Specific [place] (Auto) 1.015 09/01/23 11:32 Urine Protein (Auto) 15 mg/dL 09/01/23 11:32 Glucose (UA)(Auto) 0 mg/dL 09/01/23 11:32 Urine Ketones (Auto) Negative 09/01/23 11:32 Urine Blood (Auto) 80 Marquis/uL 09/01/23 11:32 Urine Nitrite (Auto) Negative 09/01/23 11:32 Urine Bilirubin (Auto) 1 mg/dL 09/01/23 11:32 Urine Urobilinogen (Auto) 0.2 mg/dL 09/01/23 11:32 Leukocyte Esterase (Auto) 15 Mukul/uL 09/01/23 11:32 Date of Service: 07/02/23 EXAMINATION: CT ABDOMEN AND PELVIS WITHOUT CONTRAST FINDINGS: LUNG BASES: The visualized lung bases are unremarkable. LIVER, GALLBLADDER, AND BILIARY TREE: Liver is enlarged heterogeneous with nodular contour suggestive for cirrhotic liver there is no intrahepatic masses or ductal dilatation seen. Parenchymal calcifications seen subcapsular in the right lobe. There is cholelithiasis without evidence of cholecystitis. CBD is not dilated without evidence of choledocholithiasis. PANCREAS: Unremarkable. SPLEEN: Spleen revealed numerous calcifications, most likely granulomatous in nature ADRENAL GLANDS: Unremarkable. KIDNEYS AND URETERS: There is no hydroureteronephrosis. No evidence of nephrolithiasis. Right kidney is unremarkable. Left kidney revealed a few low-attenuation lesions most likely cysts with the largest in the lower pole measured 3.1 x 3.0 cm with attenuation of minus 6HU. No obvious solid lesions are identified. Ureters are nondilated. BLADDER: Unremarkable. GASTROINTESTINAL TRACT: The small and large bowel are unremarkable. The appendix is unremarkable. ABDOMINAL WALL: No significant hernia is appreciated. LYMPH NODES: Normal. VASCULAR: Abdominal aorta is nondilated, calcified. PELVIC VISCERA: There is cystic mass in the right adnexa, measured 5.4 x 5.4 x 5.8 cm. OSSEOUS STRUCTURES: There are diffuse osteopenia is status post kyphoplasty of L5, L4, L3, L1. There is mild wedge-shaped deformity of L2. IMPRESSION: 1. Cholelithiasis without cholecystitis. 2. Left renal cysts. 3. Cystic mass in the right adnexa, correlate with pelvic ultrasound. 4. Cirrhosis of liver, without evidence of portal hypertension. 5. Numerous splenic calcifications, due to granulomatous disease. 6. Diffuse osteopenia with status post kyphoplasty of L5, L4, L3, L1. Mild wedge-shaped deformity of L2. Assessment & Plan Assessment & Plan (1) Ovarian cystic mass: Code(s): N83.209 - Unspecified ovarian cyst, unspecified side (2) Renal cyst: Code(s): N28.1 - Cyst of kidney, acquired Plan In office urinalysis results reviewed with the patient today; will send for urine cytology. Patient currently denies any bothersome urinary issues or concerns. She reports be happy with current voiding parameters. Discussed at length potential causes of renal cysts. Discussed further workup with CT renal mass protocol however patient has allergy to contrast dye Will obtain MRI for further assessment evaluation. Will refer to rn gyn as discussed. Discussed at length importance of managing diabetes for overall health and well-being. Follow-up in 1-3 months with imaging to be completed prior; or sooner with any issues, concerns, and or questions. Orders: Orders AMB Urinalysis Automated 09/01/23 Z13.9 - Encounter for screening, unspecified MR kidney wo/w con 09/01/23 N28.89 - Other specified disorders of kidney and ureter Urine Cytology 09/01/23 Z13.9 - Encounter for screening, unspecified Referrals OPTHALMIC TECH Referral N83.209 - Unspecified ovarian cyst, unspecified side Patient Instructions: The patient had an opportunity to ask questions regarding the treatment plan. All questions were answered. Physical exam, labs, and imaging were discussed and reviewed in detail. As well as risks, benefits, and discussion of treatment choices. No major barriers to understanding were identified. The patient expressed understanding and agreement with the above treatment plan. The patient was made aware they should contact our office by phone for worsening of their current condition, the appearance of new symptoms, or with any questions or concerns. Compliance is encouraged with any medications and follow up testing that is ordered. It is a privilege to be allowed the opportunity to participate in? your urological care.? Again, if you have any questions or concerns If you have any questions or concerns please do not hesitate to contact me. The office is [phone]. This note is constructed using voice recognition software. While every effort has been made to ensure accuracy bilingual call center representative errors may have been included. Yours sincerely, ARNOLDO Harris Coding Level of Care Code New Pt Level 4 (95588) Diagnoses Ovarian cystic mass N83.209 Renal cyst N28.1 Time Spent (min) 30
== END 2023-09-01 12:00 | disposition home or self-care (01) ==
PROVIDERS: PCP Internal Medicine; Visit Provider Nurse Practitioner Family
DX: N83.209 Unspecified ovarian cyst, unspecified side (principal); N28.1 Cyst of kidney, acquired
CPT/HCPCS: 99204

== ENCOUNTER 2023-09-01 11:08 | Outpatient (REF) | payer OTHER, SELFPAY ==
[2023-09-01 16:39] LABS: Urine Cytology See Pathology rpt
== END 2023-09-01 11:09 | disposition home or self-care (01) ==
LOC: HO.LNP 11:08
PROVIDERS: PCP Internal Medicine; Visit Provider Nurse Practitioner Family
DX: N28.1 Cyst of kidney, acquired (principal); N83.209 Unspecified ovarian cyst, unspecified side; Z79.899 Other long term (current) drug therapy
CPT/HCPCS: 81003; 88112; 99202

== ENCOUNTER 2024-02-24 10:03 | Outpatient (REF) | payer OTHER, SELFPAY ==
[2024-02-24 11:50] LABS: Anion Gap 13 (12-20); Blood Urea Nitrogen 13 mg/dL (9-16); Calcium 9.9 mg/dL (8.4-10.2); Carbon Dioxide 25 mmol/L (22-29); Chloride 105 mmol/L (96-108); Estimated Glomerular Filt Rate > 60; Glucose Random 113 mg/dL (60-115); Potassium 3.6 mmol/L (3.3-5.1); Sodium 139 mmol/L (135-145)
[2024-02-24 12:29] LABS: Creatinine Urine 122.34 mg/dL; Microalbum/Creatinine Ratio Ur 50.6 ug/mg cr (<30)
== END 2024-02-24 10:04 | disposition home or self-care (01) ==
LOC: HO.HHCL 10:03
PROVIDERS: Visit Provider Nurse Practitioner
DX: R60.0 Localized edema (principal)
CPT/HCPCS: 36415; 80048; 82043; 82570

== ENCOUNTER → 2024-03-02 07:54 | Outpatient (BNV) | payer OTHER, SELFPAY | PROVIDERS: PCP Internal Medicine; Visit Provider Radiology Diagnostic Radiology | DX: N28.89 Other specified disorders of kidney and ureter (principal) | CPT/HCPCS: 74183 ==

== ENCOUNTER 2024-03-02 08:17 | Outpatient (REF) | payer OTHER, SELFPAY ==
--- NOTE | ~2024-03-02 | MR_ITS ---
EXAMINATION: MR ABDOMEN WITHOUT AND WITH CONTRAST CLINICAL INFORMATION: Other specified disorders of the kidney and ureter COMPARISON: No priors. Correlated to CT abdomen and pelvis dated July 02, 2023. TECHNIQUE: MR abdomen was performed without and with use of 6.0 mL intravenous Gadavist gadolinium contrast. Postcontrast images are performed in multiphase dynamic sequences. Imaging was performed in 3 planes. No reported immediate complications FINDINGS: Submitted for interpretation on May 05, 2024. LIVER, GALLBLADDER, AND BILIARY TREE: Liver measures 16 cm. Nodular morphology pattern. Heterogeneous and nodular enhancement throughout the parenchyma. No arterial or portal venous phase enhancing lesion. There are few, intrinsic hyperintense T1 subcentimeter nodules in the periphery of the right hepatic lobe. Portal vein and hepatic veins and intrahepatic portion of the IVC are patent. There are layering intraluminal hypointense signal abnormality within the gallbladder fundus. No gallbladder wall thickening. Common bile duct measures 10 mm. Trace amount of perihepatic fluid and edema in the pericholecystic region. PANCREAS: No focal mass. No peripancreatic fluid collection. No main pancreatic ductal dilatation. SPLEEN: 6 cm. Punctate hypointense signal related to multiple calcifications. ADRENAL GLANDS: No nodular lesions. KIDNEYS AND URETERS: Right kidney: There are 4 septated nonenhancing fluid signal characteristic lesions in the upper pole, largest measures 10 mm. There is 2, less than 4 mm nonenhancing fluid signal characteristic in the midportion. There is a 5 mm nonenhancing fluid signal characteristic lesion in the lower pole. No enhancing lesion. Normal enhancement pattern of the renal parenchyma. No hydronephrosis. Normal patency of the main renal vessels. No lesions in the pararenal compartment. Left kidney: 24 mm exophytic septated nonenhancing fluid signal characteristic lesion in the upper pole. There is a 5 mm intrinsic hyperintense T1 nonenhancing lesion in the posterior upper pole midportion junction. There is a 12 mm exophytic nonenhancing fluid signal characteristic lesion in the anterior midportion/lower pole junction. There is a 30 mm exophytic nonenhancing anechoic fluid signal characteristic lesion in the posterior lower pole. There is a 4 mm nonenhancing fluid signal characteristic lesion in the anterior lower pole. Normal enhancement pattern of the renal parenchyma. The main renal vessels are patent. No nodular lesions in the pararenal compartment. GASTROINTESTINAL TRACT: Abundant stool in the large intestine. No intestinal obstruction pattern. Normal appendix. Trace amount of ascites. ABDOMINAL WALL: Small tiny fat-containing umbilical hernia. LYMPH NODES: No gross lymphadenopathy. VASCULAR: No aneurysm or dissection, abdominal aorta. OSSEOUS STRUCTURES: Multilevel thoracolumbar spondylosis. Status post kyphoplasty/vertebroplasty procedure at L1, L3, L4 and L5. There is a 6 cm, septated, fluid signal characteristic, nonenhancing lesion centered in the right adnexa. MR/MR kidney wo/w con IMPRESSION: Bosniak type II cysts, bilaterally. Hepatocellular disease/cirrhosis. Ascites, trace amount. Cholelithiasis. 6 cm septated cystic lesion, right adnexa. Probable benign.. Electronically signed by: Koby Jorge MD 05/05/2024 10:33 AM EST
[2024-03-02] MEDS: gadobutroL 7.5 ML VIAL IVPUSH (09:52)
== END 2024-03-02 08:18 | disposition home or self-care (01) ==
LOC: HO.MRI 08:17
PROVIDERS: PCP Internal Medicine; Visit Provider Nurse Practitioner Family
DX: N28.89 Other specified disorders of kidney and ureter (principal)
CPT/HCPCS: 74183; A9585

== ENCOUNTER 2024-05-06 07:58 | Outpatient (REF) | payer OTHER, SELFPAY | END 2024-05-06 07:59 | disposition home or self-care (01) | LOC: HO.MAMMO 07:58 | PROVIDERS: PCP Internal Medicine; Visit Provider Internal Medicine | DX: Z12.31 Encounter for screening mammogram for malignant neoplasm of breast (principal) | CPT/HCPCS: 77063; 77067 ==

== ENCOUNTER → 2024-05-06 08:15 | Outpatient (BNV) | payer OTHER, SELFPAY | PROVIDERS: PCP Internal Medicine; Visit Provider Internal Medicine | DX: Z12.31 Encounter for screening mammogram for malignant neoplasm of breast (principal) | CPT/HCPCS: 77063; 77067 ==

== ENCOUNTER 2024-08-17 12:11 | Outpatient (REF) | payer OTHER, SELFPAY ==
[2024-08-17 14:00] LABS: TSH reflex Free T4 2.81 uIU/mL (0.32-4.0)
[2024-08-17 14:13] LABS: Anion Gap 10 (12-20); Blood Urea Nitrogen 19 mg/dL (9-16); Calcium 10.8 mg/dL (8.4-10.2); Carbon Dioxide 27 mmol/L (22-29); Chloride 107 mmol/L (96-108); Estimated Glomerular Filt Rate > 60; Glucose Random 83 mg/dL (60-115); Magnesium 1.3 mg/dL (1.6-2.6); Phosphorus 3.2 mg/dL (2.7-4.5); Potassium 3.7 mmol/L (3.3-5.1); Sodium 140 mmol/L (135-145)
== END 2024-08-17 12:12 | disposition home or self-care (01) ==
LOC: HO.HHCL 12:11
PROVIDERS: Visit Provider Internal Medicine
DX: U07.1 COVID-19 (principal); I21.4 Non-ST elevation (NSTEMI) myocardial infarction; E11.9 Type 2 diabetes mellitus without complications
CPT/HCPCS: 36415; 80048; 83735; 84100; 84443

== ENCOUNTER 2024-11-30 11:14 | Outpatient (REF) | payer OTHER, SELFPAY ==
--- NOTE | ~2024-11-30 | XR_ITS ---
CLINICAL HISTORY: TENDERNESS LEFT X-ray bilateral TMJ five views Comparison: None Findings: No fracture or dislocation. Appropriate motion on open and closed mouth views. No significant joint space loss or osteophyte production. No erosive changes. Impression: 1. Unremarkable examination. This document has been electronically signed by: Roxy Meneses MD on 12/01/2024 14:38:26
--- OUTSIDE RECORDS SUMMARY | 2024-11-30 11:59 | XMS_ITS | Encounter Summary ---
Author Organization [employer] Address [address] [place] [address] Care Team Providers Care Calibrator Barometers Name Role Phone Shelli Pacheco MD Primary Care Provider + Encounter Details Date Type Department Care Team ([facility] st Contact Info) Description 04/27/2023 Orders Only [facility] [address], [place] [phone] Shelli Pacheco MD [address], [place] [phone] Social History Tobacco Use Types Packs/Day Years Used Date Smoking Tobacco: Never Smokeless Tobacco: Never Alcohol Use Standard Drinks/Week Comments Never 0 (1 standard drink = 0.6 oz pur e alcohol) Housing Stability Answer Date Recorded What is your housing situation today? I have stevemartina alcantara 03/15/[address] you li ve. Do you have problems with any of the following? None of the above 03/15/2023 Food Insecurity Answer Date Recorded Within the past 12 months, y ou worried that your food would run out before you got money to buy more: Never True 03/15/2023 Within the past 12 months,th e food you bought just didn't last and you didn't have enough money to get more: Never True Transportation Answer Date Recorded In the past 12 months, has l ack of transportation kept you from medical appts, meetings, work or from getting things needed for daily living? No 03/15/2023 Utilities Answer Date Recorded In the past 12 months, has t he electric, gas, oil or water company threatened to shut off services in your home? No 03/15/2023 Depression Answer Date Recorded Patient Health Questionnaire-2 Score 0 04/21/2023 Comments Unknown Sex and Gender Information Value Date Recorded Sex Assigned at Female 03/23/2022 10:15 AM EDT Legal Sex Female 10:15 AM EDT Gender Identity Female 03/23/2022 10:15 AM EDT Sexual Orientation Straight 03/23/2022 10 :15 AM EDT documented as of this encounter Plan of Treatment Not on file documented as of this encounter Visit Diagnoses Not on filedocumented in this encounter Care Teams Calibrator Barometers Relationship Specialty Start Date End Date Shelli Pacheco MD [address] [place] [id number] PCP - General Family Medicine 12/20/18 documented as of this encounter
--- OUTSIDE RECORDS SUMMARY | 2024-11-30 11:59 | XMS_ITS | Clinical Summary ---
Author Organization [facility] Address [address] [place] [address] Phone Care Team Providers Care Catering Administrative Assistant Name Role Phone Shelli Pacheco MD Primary Care Provider + [phone] Allergies Active Allergy Reactions Criticality Noted Date Comments Iodinated Contrast Media Rash Medium 04/05/2024 Perflutren Lipid Microspheres 04/07/2024 Pt's @bedside communication made aware that she is not allergic to tylenol with nurse vale mccormack, also with night TAMEKA Randle Medications albuterol 2.5 mg /3 mL (0.083 %) nebulizer solution Take 3 mL (2.5 mg total) by nebulization every 4 (four) hours if needed. Active teriparatide (Forteo) 20 mcg/dose (600mcg/2.4mL) injection Inject 0.08 mL (20 mcg total) under the skin 1 (one) time each day. 4 025 Active metFORMIN XR (GLUCOPHAGE-XR) 500 mg 24 hr tablet Take 1 tablet (500 mg total) by mouth 1 (one) time each day. Active ferrous sulfate 325 mg (65 mg elemental iron) tablet Take 1 tablet (325 mg total) by mouth every other day. Active ergocalciferol (VITAMIN D-2) 1,250 mcg (50,000 unit) capsule Take 1 capsule (50,000 Units total) by mouth 1 (one) time per week. Active atorvastatin (LIPITOR) 40 mg tablet Take 1 tablet (40 mg total) by mouth 1 (one) time each day. at bedtime. Active ascorbic acid (VITAMIN C) 500 mg tablet Take 1 tablet (500 mg total) by mouth every other day. Take 500mg by mouth every other day with Ferrous Sulfate 4 Active ursodioL (ACTIGALL) 300 mg capsule Take 2 capsules (600 mg total) by mouth 2 (two) times a day. Active aspirin 81 mg EC tablet Take 1 tablet (81 mg total) by mouth 1 (one) time each day. 7 Active budesonide-formo teroL (SYMBICORT) 80-4.5 mcg/actuation inhaler Inhale 2 puffs by mouth 2 (two) times a day. Rinse mouth with water after use to reduce aftertaste and incidence of candidiasis. Do not swallow. 1 each 4 Active losartan (COZAAR) 100 mg tabletIndication s:Primary hypertension Take 1 tablet (100 mg total) by mouth 1 (one) time each day. 30 each 11 4 025 Active hydroCHLOROthiaz hussain (MICROZIDE) 12.5 mg capsule Take 1 capsule (12.5 mg total) by mouth 1 (one) time each day. Active budesonide-formo teroL (SYMBICORT) 80-4.5 mcg/actuation inhaler Inhale 2 puffs by mouth 2 times daily. 4 Active dilTIAZem CD (CARDIZEM CD) 120 mg 24 hr capsule Take 1 capsule (120 mg total) by mouth 1 (one) time each day. 30 each 1 5 Active butalbital-aceta minophen-caffein e (FIORICET, ESGIC) 50-325-40 mg per tablet Take 1 tablet by mouth every 4 (four) hours if needed for headaches. 15 tablet 5 Active Active Problems Problem Noted Date Diagnosed Date Intermittent palpitations 08/25/2024 Primary hypertension 05/09/2024 Assessment & Plan (05/15/2024 1:31 PM EST): With the switch from lisinopril to losartan the patient's cough is improved. Her peripheral edema stopped with the discontinuation of amlodipine and her blood pressure is better controlled at this time. Will continue losartan 100 mg a day no further changes made at this time Assessment & Plan (05/09/2024 4:37 PM EST): Patient came back today because she was hypertensive she still hypertensive she is having a cough possibly due to lisinopril so we will start her on 100 mg of losartan and have her back in a week to recheck her pressure we may need to add beta- guero on top of this. She has had peripheral edema side effects from amlodipine so we will be avoiding that. Orders: losartan (COZAAR) 100 mg tablet; Take 1 tablet (100 mg total) by mouth 1 (one) time each day. NSTEMI (non-ST elevated myoc ardial infarction) ([facility] V24, [facility] V28) 05/01/2024 Assessment & Plan (05/09/2024 4:37 PM EST): Patient been admitted earlier in March with evidence of an NSTEMI. Brought up after diagnostic catheterization last Wednesday with no evidence obstructive coronary disease. Has a small hematoma and some mild tenderness at the cath site with ecchymosis but no evidence of pseudoaneurysm or bruit The above note was prepared with the help of voice recognition software. Please excuse any grammatical or spelling errors that may have occurred Troponin level elevated 04/06/2024 Assessment & Plan (05/15/2024 1:31 PM EST): Diagnostic catheterization with no obstructive disease. Risk factor modification in place Orders: Ambulatory referral to Cardiology Elevated troponin 04/05/2024 Rash 02/24/2024 Renal cyst, acquired, left 07/10/2023 Pain of upper abdomen 07/10/2023 Gastritis and duodenitis 07/10/2023 Overview (04/05/2024): EGD at [facility] on 12/2022 Neg H.Pilory Cyst of right ovary 07/10/2023 Acute URI 05/26/2023 Dermatitis 04/21/2023 Increased urinary frequency 01/22/2023 Vitamin D deficiency disease 12/23/2022 Cervical paraspinal muscle spasm 12/23/2022 Hemoptysis 12/22/2022 Simple chronic bronchitis ([facility] V24, [facility] V28) 04/25/2022 Right shoulder tendinitis 04/25/2022 Mild intermittent asthma 04/25/2022 Gastro-esophageal reflux disease with esophagiti s 04/25/2022 Epistaxis 04/25/2022 Chronic left shoulder pain 04/25/2022 Nix's esophagus 04/25/2022 Acute low back pain 04/25/2022 Compression fracture of L2 l umbar vertebra ([facility] V24, [facility] V28) 12/03/2021 Overview (04/05/2024): Last Assessment & Plan: Patient describes almost 3 weeks of severe low back pain, 03/02. She fell on 11/15/21, landing on her back. She has history of chronic prednisone use for asthma, currently is off prednisone. She has had vertebroplasties at [facility] 2016, 2018 for L1, L3, L4, L5 compression fractures. Subjectively she feels weak, finds it difficult to walk, poor balance, is not using a cane or walker. She is not sleeping well due to the pain. She notes cramping in the legs, proximal leg weakness right >left, numbness tingling in the legs. She tried naproxen but it made her sick. She was seen in the ED at [facility] on 11/27/2021, had cervical x-rays with no significant findings. Lumbar x-rays showed L2 compression fracture. Patient had lumbar spine x-rays at [facility] 11/27/2021 that shows osteopenia, superior endplate L2 fracture with 40% loss of vertebral body height. She has postop changes with vertebral augmentation at L1, L3, L4, L5. I reviewed her x-rays with the patient and her daughter. Ms. Maldonado will need a lumbar spine MRI to better evaluate her L2 compression fracture, see if it is an acute fracture that is amenable to kyphoplasty and rule out any nerve root compression. I will review her films with Dr. Arce once completed, call her with an update on the plan. Her daughter acted as film casting operator. Benign colonic polyp 09/20/2018 Overview (04/05/2024): repeat screening colonoscopy in 2028 Primary biliary cholangitis ([facility] V24, [facility] V28) 09/01/2017 Overview (04/05/2024): Seen By Dr Gee/[facility] Osteoporosis 07/15/2017 Cholestasis ([facility] V28) 07/15/2017 Lung mass 06/22/2017 MGUS (monoclonal gammopathy of unknown significa nce) 04/12/2017 Closed fracture of fifth lum bar vertebra ([facility] V24, [facility] V28) 04/12/2017 Hyperlipidemia associated wi th type 2 diabetes mellitus ([facility] V24, [facility] V28) 08/02/2013 Type 2 diabetes mellitus wit hout complication ([facility] V24, [facility] V28) 08/17/2012 Depressive disorder 08/17/2012 Blind left eye 08/17/2012 Asthma with acute exacerbation 08/17/2012 Resolved Problems Problem Noted Date Diagnosed Date Resolved Date Other specified abnormal fin dings of blood chemistry 04/12/2024 05/01/2024 SARS-CoV-2 positive 05/26/2023 04/05/20 24 Overview (04/05/2024): Prescribed paxlovid, advise hold atorvastatin for 8 days and amlodipine take half pill for 8 days Weight loss 08/24/2022 04/05/2024 Encounters Date Type Department Care Team Description 11/13/2024 Telephone [facility] Cardiology [address] [place] [address] [place] [phone] Shane Guerra MD Scheduling Recall 10/17/2024 8:08 AM EDT - 10/17/2024 11:52 AM EDT [facility] Emergency [address] [place] [phone] Faraz Vance DO Encounter for removal of nasal packing (Primary Dx) Discharge Disposition: Home or Self Care 10/14/2024 8:30 AM EDT - 10/14/2024 10:41 AM EDT [facility] Emergency [address] [place] [phone] Segun Hunter MD Epistaxis (Primary Dx) Discharge Disposition: Home or Self Care 09/11/2024 10:18 AM EDT - 09/11/2024 11:03 AM EDT Emergency [facility] Emergency [address] [place] [phone] Cervical radiculopathy (Primary Dx) Discharge Disposition: Home or Self Care from Last 3 Months Surgical History Surgery Date Site/Laterality Comments OTHER SURGICAL HISTORY 2016 PROCEDURE: MD VERTEBROPLASTY EACH ADDL CERVICOTHOR/LUMBOSACRAL; COMMENT: 2016, 2018: L1,3,4,5 vertebroplasties Medical History Medical History Date Comments High cholesterol DX:High cholest momo Back pain DX:Back pain HTN (hypertension) DX:HTN (hyper tension) DM (diabetes mellitus) (CMS/ [facility] V24, CMS/HCC V28) DX:DM (diabetes mellitus) (H CC) Mild intermittent asthma, uncomplicated DX:Mild intermittent asthma, uncomplicated Weight loss 08/24/2022 SARS-CoV-2 positive 05/26/2023 Prescribed p axlovid, advise hold atorvastatin for 8 days and amlodipine take half pill for 8 days Family History Medical History Relation Name Comments Breast cancer Mother Diabetes Mother Hypertension Mother Relation Name Status Comments Mother Social History Tobacco Use Types Packs/Day Years Used Date Smoking Tobacco: Never Smokeless Tobacco: Never Tobacco Cessation:Counseling Given: Not Answered Alcohol Use Standard Drinks/Week Comments Not Currently 0 (1 standard drink = 0.6 oz pur e alcohol) Interpersonal Safety Answer Date Record ed Physical Abuse 08/26/2024 Verbal Abuse 08/26/2024 Comments No Sex and Gender Information Value Date Recorded Sex Assigned at Female 04/05/2024 11:41 AM EST Legal Sex Female 9:02 AM EST Gender Identity Female 04/05/2024 11:41 AM EST Sexual Orientation Straight 04/05/2024 11 :41 AM EST Obstetrics History Last Filed Vital Signs Vital Sign Reading Time Taken Comments Blood Pressure 133/55 10/17/2024 8:02 AM EDT Pulse 83 10/17/2024 8:02 AM EDT Temperature 37.1 C (98.7 F) 10/17/2024 8:02 AM EDT Respiratory Rate 18 10/17/2024 8:02 AM EDT Oxygen Saturation 100% 10/17/2024 8:02 AM EDT Inhaled Oxygen Concentration - - Weight 61.2 kg (135 lb) 10/17/2024 8:02 AM EDT Height 149.9 cm (4' 11 ) 10/17/2024 8:02 AM EDT Body Mass Index 27.27 10/17/2024 8:02 AM EDT Plan of Treatment Health Maintenance Due Date Last Done Comments Breast Cancer Screening 1955 Diabetes: Annual Foot Exam 1963 Diabetes: Annual Retina Eye Exam 1965 Hepatitis A Vaccines (1 of 2 - Risk 2-dose series) 01/29/1972 RSV Immunization Adult Patients (1 - Risk 60-74 years 1-dose series) 2013 Colorectal Cancer Screening: Colonoscopy 04/26/2022 Depression Screening 04/26/2022 Hepatitis C Screening 04/26/2022 Medicare Annual Wellness Visit 04/26/2022 Osteoporosis Screening (Bone Density Screening) 04/26/2022 Social Influencers of Health Screening 04/26/2022 COVID-19 Vaccine ( season) 2024 01/20/2023, 01/01/2022, 03/24/2021, Additional history exists Diabetes: Annual Urine Albumin-Creatinine Ratio (uACR) 04/05/2024 Influenza Vaccine (#1) 2025 , 02/27/2022, 03/24/2021, Additional history exists Diabetes: Blood Sugar Control Test (HGBA1C) 02/24/2025 08/25/2024, 08/17/2024, 04/05/2024, Additional history exists Diabetes: Annual GFR (Glomerular Filtration Rate) 08/26/2025 08/26/2024, 08/25/2024, 08/17/2024, Additional history exists Falls Risk Assessment 08/26/2025 08/26/2024 Hypertension/CHF/CAD Annual BMP Blood Test 08/26/2025 08/26/2024, 08/25/2024, 08/17/2024, Additional history exists DTaP,Tdap,and Td Vaccines (3 - Td or Tdap) 04/12/2027 04/12/2017, 11/01/2002 Cholesterol Screening (Lipid Panel) 08/26/2029 08/26/2024, 04/05/2024 Hepatitis B Vaccines Completed 03/21/2012, 03/14/2001, 09/24/1999, Additional history exists Zoster Vaccines Completed 05/03/2020, 02/21, 05/03/2019, Additional history exists Pneumococcal Vaccine: 50+ Years Completed 01/20/2023, 03/02/2016, 12/10/2008 HIB Vaccines Aged Out No longer eligi ble based on patient's age to complete this topic HPV Vaccines Aged Out No longer eligi ble based on patient's age to complete this topic IPV Vaccines Aged Out No longer eligi ble based on patient's age to complete this topic MMR Vaccines Aged Out No longer eligi ble based on patient's age to complete this topic Meningococcal ACWY Vaccine Aged Out N o longer eligible based on patient's age to complete this topic Meningococcal B Vaccine Aged Out No l onger eligible based on patient's age to complete this topic RSV Immunization Patients Under 20 months Aged Out No longer eligible based on patient's age to complete this topic Varicella Vaccines Aged Out No longer eligible based on patient's age to complete this topic Procedures Procedure Name Priority Date/Time Associated Diagnosis Comments ED EPISTAXIS MANAGEMENT Routine 10/14/2024 10:27 AM EDT MD CONTROL NOSEBLEED ANTERIOR SIMPLE Routine 10/14/2024 10:27 AM EDT BASIC METABOLIC PANEL Routine 08/26/2024 6:02 AM EDT LIPID PANEL WITH REFLEX TO DIRECT LDL Routine 08/26/2024 6:02 AM EDT HEMOGLOBIN A1C Add-On 08/25/2024 5:14 PM EDT from Last 3 Months or Most Recently Relevant to Health Maintenance Results * MD CONTROL NOSEBLEED ANTERIOR SIMPLE, HC TREATMENT/PROCEDURE ENT (10/14/2024 10:27 AM EDT) Narrative Segun Hunter MD - 10/14/2024 10:27 AM EDT Segun Hunter MD 10/26/2024 2:17 PM Epistaxis Management Date/Time: 10/14/2024 10:27 AM Performed by: Segun Hunter MD Authorized by: Segun Hunter MD Consent: Consent obtained: Verbal Consent given by: Patient Anesthesia: Anesthesia method: Topical application Procedure details: Treatment site: L anterior Treatment method: Nasal balloon Treatment complexity: Limited Post-procedure details: Assessment: Bleeding stopped Procedure completion: Tolerated us Segun Hunter MD IN CLINIC/BEDSIDE ORDERABLE S Final Result * Lipid panel with reflex to direct LDL (08/26/2024 6:02 AM EDT) Cholesterol 122 0 - 200 mg/dL LAB CHEMISTRY METHOD 08/26/2024 7:16 AM EDT [facility] Triglycerides 64 0 - 150 mg/dL LAB CHEMISTR[facility] HDL 58 >=40 mg/dL LAB CHEMISTRY METHOD [facility] LDL Calculated 51 0 - 100 mg/dL LAB CHEMISTRY METHOD 08/26/2024 7:16 AM [facility] VLDL Cholesterol Dedrick 12.8 mg/dL LAB CHEMISTRY METHOD 08/26/2024 7:16 AM [facility] Non HDL Chol. (LDL+VLDL) 64 <145 mg/dL LAB CHEMISTRY METHOD 08/26/2024 7:16 AM [facility] Chol/HDL Ratio 2.1 0.0 - 4.4 LAB CHEMISTRY METHOD 08/26/2024 7:16 AM [facility] Blood Venous blood specimen / Unknown Venipuncture / Unknown 08/26/2024 6:02 AM EDT 08/26/2024 6:22 AM EDT us Chao ENGLISH LAB BLOOD ORDERABLES Final Res ult [facility] [address] [place] [address], [place] [phone] * Basic metabolic panel (08/26/2024 6:02 AM EDT) Sodium 138 133 - 145 mmol/L LAB CHEMISTRY METHOD 08/26/2024 7:15 AM [facility] Potassium 3.9 3.5 - 5.5 mmol/L LAB CHEMISTRY METHOD 08/26/2024 7:15 AM [facility] Chloride 106 96 - 110 mmol/L LAB CHEMISTRY METHOD 08/26/2024 7:15 AM [facility] CO2 22 21 - 32 mmol/L LAB CHEMISTRY METHOD 08/26/2024 7:15 AM [facility] Anion Gap 10 3 - 11 LAB CHEMISTRY METHOD 08/26/2024 7:15 AM [facility] Glucose 92 70 - 100 mg/dL LAB CHEMISTRY METHOD 08/26/2024 7:15 AM [facility] BUN 20 5 - 25 mg/dL LAB CHEMISTRY METHOD 08/26/2024 7:15 AM [facility] Creatinine 0.74 0.50 - 1.10 mg/dL LAB CHEMISTRY METHOD 08/26/2024 7:15 AM [facility] eGFR 87 >=60 mL/min/1. 73m2 LAB CHEMISTRY METHOD 08/26/2024 7:15 AM [facility] Comment:Calculation based on the Chronic Kidney Disease Epidemiology Collaboration (CKD-EPI) equation refit without adjustment for race. BUN/Creatinine Ratio 27.0 LAB CHEMISTRY METHOD 08/26/2024 7:15 AM [facility] Calcium 9.7 8.5 - 10.5 mg/dL LAB CHEMISTRY METHOD 08/26/2024 7:15 AM [facility] Blood Venous blood specimen / Unknown Venipuncture / Unknown 08/26/2024 6:02 AM EDT 08/26/2024 6:22 AM EDT us Juan David Reynolds MD LAB BLOOD ORDERABLES Angeline enriquez Result [facility] [address] [place] [address], [place] [phone] * Hemoglobin A1c (08/25/2024 5:14 PM EDT) Hemoglobin A1C 5.2 <6.5 % LAB CHEMISTRY METHOD 08/27/2024 8:57 AM EDT [facility] Mean Bld Glu Estim. 103 mg/dL LAB CHEMISTRY METHOD 08/27/2024 8:57 AM EDT [facility] Blood Venous blood specimen / Unknown Venipuncture / Unknown 08/25/2024 5:14 PM EDT 08/25/2024 5:59 PM EDT [facility] [place] LAB BLOOD ORDERABLES Final Res ult Performing Organization Address City/[facility]/ZIP Co de Phone Number [facility] [address] [place] [address], [place] [phone] from Last 3 Months or Most Recently Relevant to Health Maintenance [place] [address] [place] [address] MEDICARE Member Subscriber Plan / Payer (Ef fective 2018-Present) Name:JOSEPH CHO Relation to Subscriber:Self Name:Joseph Cho Payer ID:[id number] Group ID:[id number] Type:Not on file Address: [place] [address] [address] [id number] Advance Directives * Full Code - Confirmed (Latest Code Status on File) Date Activated Date Inactivated Comments 08/26/2024 3:34 AM 08/26/2024 5:34 PM This code stat us was ascertained in the following way: Code status discussion: discussion with patient To update the patient's code status, place a code status order. Do not modify or discontinue any currently active code status orders. * Full Code - Default Date Activated Date Inactivated Comments 08/25/2024 11:57 PM 08/26/2024 3:34 AM This is order is used when code status has not been discussed with the patient, or code status is otherwise unknown/unconfirmed To update the patient's code status, place a code status order. Do not modify or discontinue any currently active code status orders. * Full Code - Confirmed Date Activated Date Inactivated Comments 05/01/2024 4:30 PM 05/02/2024 4:50 AM This code s tatus was ascertained in the following way: To update the patient's code status, place a code status order. Do not modify or discontinue any currently active code status orders. * Full Code - Default Date Activated Date Inactivated Comments 04/07/2024 4:27 PM 04/10/2024 9:06 PM This is or edgardo is used when code status has not been discussed with the patient, or code status is otherwise unknown/unconfirmed To update the patient's code status, place a code status order. Do not modify or discontinue any currently active code status orders. * Full Code - Confirmed Date Activated Date Inactivated Comments 04/05/2024 5:53 PM 04/06/2024 8:44 PM This code status was ascertained in the following way: Code status discussion: discussion with patient To update the patient's code status, place a code status order. Do not modify or discontinue any currently active code status orders. Care Teams Catering Administrative Assistant Relationship Specialty Start Date End Date Shelli Pacheco MD [address] [place] [phone] PCP - General 12/01/21
[2024-12-01 08:24] LABS: HBS Num1 1.14 mIU/mL (0-7.99); HBc Num1 0.14 S/CO (0.00-0.79); HBsAGNum1 0.30 S/CO (0.00-0.99); Hepatitis A Antibody IgM 0.34 Index (0-0.79); Hepatitis B Surface Antigen Negative (Negative); ~HepC Num1 0.15 S/CO (0.00-0.79); ~Hepatitis A Antibody IgM Nonreactive (Nonreactive); ~Hepatitis B Surface Antibody NONREACTIVE (Nonreactive); ~Hepatitis C Antibody Nonreactive (Nonreactive)
== END 2024-11-30 11:15 | disposition home or self-care (01) ==
LOC: HO.XRAY 11:14
PROVIDERS: PCP Internal Medicine; Visit Provider Internal Medicine
DX: R68.84 Jaw pain (principal); E66.3 Overweight; N30.01 Acute cystitis with hematuria
CPT/HCPCS: 36415; 70330; 86704; 86706; 86709; 86803; 87086; 87340

== ENCOUNTER → 2024-11-30 13:00 | Outpatient (BNV) | payer OTHER, SELFPAY | PROVIDERS: PCP Internal Medicine; Visit Provider Radiology Diagnostic Radiology | DX: R68.84 Jaw pain (principal) | CPT/HCPCS: 70330 ==

== ENCOUNTER 2025-05-12 09:52 | Outpatient (REF) | payer OTHER, SELFPAY ==
--- OUTSIDE RECORDS SUMMARY | 2025-05-12 09:56 | XMS_ITS | Encounter Summary ---
Author Organization [employer] Address [address] [facility] [address] [place] [address] Care Team Providers Care Scraper Burrer Name Role Phone Shelli Pacheco MD Primary Care Provider + Reason for Visit * Reason Comments Med Refill Encounter Details Date Type Department Care Team (Late st Contact Info) Description 03/08/2024 Refill [facility] [address] [place], [place] [phone] Adela Urrutia NP [address] [place], [place] [phone] Essential hypertension Social History Tobacco Use Types Packs/Day Years [...] Patient Health Questionnaire-2 Score 0 04/21/2023 Comments No Sex and Gender Information Value Date Recorded Sex Assigned at Female 03/23/2022 10:15 AM EDT Legal Sex Female 10:15 AM EDT Gender Identity Female 03/23/2022 10:15 AM EDT Sexual Orientation Straight 03/23/2022 10 :15 AM EDT documented as of this encounter Plan of Treatment Upcoming Encounters Date Type Department Care Team (Late st Contact Info) Description 06/06/2025 10:15 AM EST Office Visit [facility] [address] [place] [address] Shelli Pacheco MD [address] [place] [address] documented as of this encounter Visit Diagnoses Diagnosis Essential hypertension Unspecified essential hypertension documented in this encounter Care Teams Scraper Burrer Relationship Specialty Start Date End Date Shelli Pacheco MD [address] [place] [address] PCP - General Family Medicine 12/20/18 documented as of this encounter
--- OUTSIDE RECORDS SUMMARY | 2025-05-12 09:56 | XMS_ITS | Encounter Summary ---
Author Organization [email or web address] Address [address] [facility] [address] [place] [address] Care Team Providers Care Autotransfusionist Name Role Phone Shelli Pacheco MD Primary Care Provider + Encounter Details Date Type Department Care Team (Late st Contact Info) Description 10/13/2024 Orders Only [facility] [address] [place], [place] [phone] Zelda Shane MD [address] [place], [place] [phone] Social History Tobacco Use Types Packs/Day Years Used Date Smoking Tobacco: Never Smokeless Tobacco: Never Alcohol Use Standard Drinks/Week Comments Never 0 (1 standard drink = 0.6 oz pur e alcohol) Housing Stability Answer Date Recorded What is your housing situation today? I have steve alcantara 03/15/[address] you [...] Date Recorded Patient Health Questionnaire-2 Score 0 08/17/2024 Comments No Sex and Gender Information Value [...] Description 06/06/2025 10:15 AM EST Office Visit [facility] [address] [place] [address] Shelli Pacheco MD [address] [place] [address] documented as of this encounter Visit Diagnoses Not on filedocumented in this encounter Care Teams Autotransfusionist Relationship Specialty Start Date End Date Shelli Pacheco MD [address] [place] [address] PCP - General Family Medicine 12/20/18 documented as of this encounter
--- OUTSIDE RECORDS SUMMARY | 2025-05-12 09:56 | XMS_ITS | Clinical Summary ---
Author Organization [email or web address] Address [address] [place] [address] [address] [place] [address] Care Team Providers Care Newborn Hearing Screener Name Role Phone Rito Hillman MD Primary Care Provider + Allergies Active Allergy Reactions Criticality Noted Date Comments Atenolol Angioedema Iodinated Contrast Media Rash Low 05/10/2024 Iodine 02/04/2017 Naproxen 12/01/2021 Other reaction(s): Rash, Rash/ TOLERATES TORADOL INJ Medications ursodiol (Actigall) 300 MG capsule Take 2 capsules by mouth in the morning and at bedtime. Active Nebulizer misc Use as directed with albuterol Active acetaminophen (Tylenol) 325 MG tabletIndication s:Cervical paraspinal muscle spasm Take 1 tablet (325 mg) by mouth if needed in the morning and at bedtime for mild pain. 30 tablet 12/24/19 23 Active Calcium Citrate-Vitamin D ([place] Calcium/Vitamin D) 200-6.25 MG-MCG tablet Take 2 tablets by mouth 2 times daily. 05/10/20 24 Active teriparatide (Forteo) injection Inject 20 mcg under the skin Once per day. 03/08/20 24 Active Sure Comfort Pen [place] 31G X 8 MM misc USE DIRECTED EVERY DAY WITH forteo 03/09/20 24 Active sertraline (Zoloft) 25 MG tablet Take 1 tablet (25 mg) by mouth in the morning. 90 tablet 3 05/16/20 24 Active losartan (Cozaar) 100 MG tablet Take 1 tablet (100 mg) by mouth Once per day. 30 tablet 11 05/16/20 24 025 Active Blood Glucose Monitoring Suppl (Vidible [place] Lite) w/Device kit Use to test blood sugar 1x times daily 1 kit 05/16/20 24 Active TRUEplus Lancets 33G miscIndications: Type 2 diabetes mellitus without complication, unspecified whether salvage determiner insulin use TEST BLOOD SUGAR TWICE DAILY 100 each 11 5 11:57 AM EST 06/06/19 25 Active Aspirin Low Dose 81 MG EC tablet TAKE 1 TABLET BY MOUTH EVERY MORNING 90 tablet 3 08/29/19 25 Active tiZANidine (Zanaflex) 2 MG tabletIndication s:Strain of cervical portion of left trapezius muscle Take 1 tablet (2 mg) by mouth every 8 (eight) hours if needed for muscle spasms for up to 7 days. 20 tablet 09/01/19 25 Active ergocalciferol (Vitamin D2) 1.25 MG (38091 UT) capsuleIndicatio ns:Vitamin D deficiency disease TAKE 1 CAPSULE BY MOUTH ONCE WEEKLY ON Wednesday 12 capsule 1 10/26/19 25 Active budesonide-formo terol (Symbicort) 80-4.5 MCG/ACT inhaler Inhale 2 puffs 2 times daily. 1 each 10/27/19 25 Active hydroCHLOROthiaz hussain 12.5 MG tabletIndication s:Essential hypertension Take 1 tablet (12.5 mg) by mouth Once per day. Decreased dose to 12.5mg 90 tablet 3 12/01/19 25 026 Active FREESTYLE LITE test stripIndications :Type 2 diabetes mellitus without complication, without long-term current use of insulin (HCC) USE DIRECTED TO TEST BLOOD SUGAR TWICE DAILY 50 strip 11 12/29/19 25 Active metFORMIN XR (Glucophage-XR) 500 MG 24 hr tablet TAKE 1 TABLET BY MOUTH EVERY EVENING WITH FOOD 30 tablet 11 01/24/20 25 Active fluticasone (Flonase) 50 MCG/ACT nasal spray USE 1-2 SPRAYS IN EACH NOSTRIL ONCE DAILY NEEDED 48 g 3 02/28/20 25 Active Ferrous Sulfate (iron) 325 (65 Fe) MG tablet Take 1 tablet (325 mg) by mouth Once per day. 30 tablet 1 5 11:57 AM EST 03/29/20 25 Active atorvastatin (Lipitor) 40 MG tablet TAKE 1 TABLET BY MOUTH AT BEDTIME 90 tablet 3 5 11:57 AM EST 12/03/20 25 Active atorvastatin (Lipitor) 40 MG tablet TAKE 1 TABLET BY MOUTH AT BEDTIME 90 tablet 3 05/10/20 24 025 Discontinued Active Problems Problem Noted Date Diagnosed Date Acute cystitis with hematuria 12/01/2024 Assessment & Plan (12/01/2024 3:57 PM EDT): Patient feeling orthostatic, mildly dehydrated UA consistent with UTI, Rx Bactrim and follow-up urine culture results Advised to increase hydration Orthostatic dizziness 11/30/2024 Assessment & Plan (03/29/2025 2:51 PM EST): Most likely related to hypovolemia during episodes of epistaxis Advised regarding hydration, monitor BP and follow-up with nurse and with me as above Assessment & Plan (12/01/2024 3:56 PM EDT): I advised to stay hydrated through the summer, gentle position change. Lowered HCTZ to 12.5 mg and monitor symptoms, reconsult as needed Order UA, rule out UTI TMJ tenderness, left 11/30/2024 Assessment & Plan (11/30/2024 10:59 AM EDT): Likely TMJ dysfunction, unclear if there is other pathology due to previous history of using biphosphonate, ordered x-ray of left TMJ Advised to address this issue with dentist, take Tylenol as needed Cystadenoma of right ovary 08/17/2024 Overview (08/17/2024): Sp BSOO on 07/26/24 at [facility]. Neg peritoneal washings. Assessment & Plan (08/17/2024 2:27 PM EDT): Sp BSOO on 07/26/2024, doing well, negative pathology Follow-up with [facility] Overweight 08/17/2024 Assessment & Plan (11/30/2024 11:00 AM EDT): Patient's weight gain has stabilized after ACS last year. Discussed about healthy food choices, exercise as tolerated Follow-up weight Assessment & Plan (08/17/2024 2:28 PM EDT): She has lost approximately 10 pounds since last year due to medical conditions including ACS, pneumonia and recent ovarian cyst resection. Will continue to monitor weight, she will follow-up with GI Advised regarding increase fiber and protein intake, low calorie meals and increase hydration NSTEMI (non-ST elevated myocardial infarction) 1 07/17/2023 Assessment & Plan (10/26/2024 2:53 PM EDT): She had a normal cath last year, no change in medications for now and follow-up with cardiology Dr. Guerra at [facility] Assessment & Plan (05/16/2024 12:42 PM EST): S/P normal cardiac cath. Continue Losartan + hydrochlorothiazide + Aspirin + Atorvastatin. Will restart Sertraline. FU with Cardiology in 6 months, [facility] Dr. Guerra. Renal cyst, acquired, left 07/10/2023 Assessment & Plan (07/10/2023 12:04 PM EST): Increased size 1cm since last CT scan on 12/2022 Refer to urology Cyst of right ovary 07/10/2023 Assessment & Plan (07/10/2023 12:04 PM EST): Refer to [facility] Pain of upper abdomen 07/10/2023 Assessment & Plan (07/10/2023 12:28 PM EST): Likely related to gastritis/esophagitis/hernia. Dietary recommendations d/w patient Re start sucralfate tid ac meals + at bedtime Use Bentyl tid ac meals, prn FU with [facility] Gastritis and duodenitis 07/10/2023 Overview (07/10/2023): EGD at [facility] on 12/2022 Neg H.Pilory Asthma with acute exacerbation 05/26/2023 Assessment & Plan (03/29/2025 2:44 PM EST): - Currently improving. Advised to DC albuterol due to tachycardia, will continue using Symbicort every 4 hours as needed for asthma exacerbation -Continue Symbicort twice daily - Continue antibiotic and prednisone therapy. Rest and maintain adequate hydration. - Use saline or corey/honey gargles for residual throat irritation. Assessment & Plan (03/05/2025 12:16 PM EDT): -Nebulizer treatment administered in office with improvement in wheezing and O2 saturation -refill of nebulizer solution provided and advised use at home every 6 hours as needed. - Prescribed prednisone 20 mg once daily in the morning for 5 days. - Advised continuation of Symbicort inhaler, 2 puffs twice daily, with allowance for extra 2 puffs every 20 minutes during coughing fits, not to exceed three extra doses per day. -Return and Ed precautions are reviewed Orders: albuterol (2.5 MG/3ML) 0.083% nebulizer solution 2.5 mg predniSONE (Deltasone) 20 MG tablet; Take 1 tablet (20 mg) by mouth Once per day for 5 days. albuterol (2.5 MG/3ML) 0.083% nebulizer solution; INHALE 1 AMPULE USING A NEBULIZER FOUR TIMES DAILY NEEDED Dermatitis 04/21/2023 Assessment & Plan (04/21/2023 12:49 PM EST): Avoid scented soaps and deodorants Use Triamcinolone along with OTC Mositurizing BID on both axilas and lower abdomen F/u with me in 4-5 weeks Increased urinary frequency 01/22/2023 Assessment & Plan (01/22/2023 5:22 AM EDT): Reports increased urination frequency for 4 d w mild discomfort in suprapubic area, w no urgency, nor dysuria. Denies vaginal discharge. Urine dipstick today pos for blood and ketones. Nitrates and LE are neg. -Will do UA w reflex culture. Will call pt if pos for infection to start ATB. Vitamin D deficiency disease 12/23/2022 Assessment & Plan (12/23/2022 10:24 AM EDT): DC vit d daily and start once per week for 3 months only counseled regarding outdoor exercise Hemoptysis 12/22/2022 Weight loss 08/24/2022 Assessment & Plan (02/24/2024 9:48 AM EDT): 7 lbs in 3 weeks, unclear if related just to Dieresis vs Malignancy. Follow up MRI of abdomen closely, pt needs to follow up with GI. Mammogram and Colonoscopy is UTD, is she continues to lose weight, I may schedule a pap smear. Assessment & Plan (08/24/2022 1:43 PM EDT): Pt lost 3 pounds in 3 months. Basic malignancy workup is negative except for papsmear that was done before age 63. Will FU weight at next visit, decide on repeating pap smear. Order labs and FU with me in 3 months Arthritis 04/25/2022 Nix's esophagus 04/25/2022 Assessment & Plan (02/24/2024 9:44 AM EDT): Pt was due for EDG last year, no recent GI note in the chart, I left a VM to call back with information. Assessment & Plan (12/23/2022 10:25 AM EDT): She is doing well, no evidence of recent bleeding or severe esophagitis needs fu endoscopy, previously followed by [facility] GI referral to [facility] where she can get all of her GI care Epistaxis 04/25/2022 Assessment & Plan (03/29/2025 2:46 PM EST): - Recurrent epistaxis, Otolaryngology evaluation performed; no structural abnormality found. Unclear if she may have some coagulopathy (will check with GI regarding progression of liver cirrhosis) - Iron supplementation prescribed for 2 months. Dietary recommendations for iron-rich foods provided. Follow-up in 2 months to reassess hemoglobin and bleeding status. - Monitor for recurrence of epistaxis. If bleeding recurs, seek immediate medical attention. Assessment & Plan (10/26/2024 2:50 PM EDT): Resolved status post intranasal packing. Refer to ENT Avoid intranasal trauma, blowing her nose very hard and reconsult as needed Assessment & Plan (05/11/2022 2:31 PM EST): Resolved, seen by ENT. Continue using Fluticasone I,nasal spray prn nasal congestion Use NS prn Chronic left shoulder pain 04/25/2022 Gastro-esophageal reflux disease with esophagiti s 04/25/2022 Assessment & Plan (01/22/2023 5:23 AM EDT): -Start Famotidine 20 mg for GERD Sx. Pending to see GI. Pathological fracture due to osteoporosis 2021 Benign colonic polyp 09/20/2018 Overview (08/24/2022): repeat screening colonoscopy in 2028 Hyperlipidemia associated with type 2 diabetes esther quiñones 07/01/2018 Assessment & Plan (08/17/2024 2:27 PM EDT): Check lipid profile and adjust atorvastatin if needed Recommended moderate amount of exercise and increase consumption of fruit, vegetables, fish and high fiber foods. Should decrease consumption of highly saturated fats or trans fats. Follow-up with me in 1 month with labs Primary biliary cholangitis (CMS/HCC) 09/01/2017 Overview (07/10/2023): Seen By Dr Gee/[facility] Assessment & Plan (03/29/2025 2:50 PM EST): On ursodiol, LFTs remain stable but albumin has significantly dropped. Will obtain last OV from Dr. White and see if she needs additional evaluation for liver cirrhosis especially given that she has had recurrent bleedings (epistaxis) Assessment & Plan (08/17/2024 2:26 PM EDT): Doing well on ursodiol. New referral to [facility] to continue follow-up with them. Assessment & Plan (02/24/2024 3:00 PM EDT): Pt is on Ursodiol, has some stigmata of Liver Cirrhosis. Will obtain GI information and follow up in 3 months. MRI of abdomen pending from GI. Assessment & Plan (07/10/2023 12:01 PM EST): Will continue Ursodiol 600mg bid and we'll call Dr Gee's office to expedite rito ppt with him and evaluate progression of liver cirrhosis. Assessment & Plan (01/22/2023 5:25 AM EDT): Pt w Hx of PBC seen by Dr. Gee, but lost care since 2019. At recent hospitalization US of gallbladder showed concern for cholecystitis and cirrhosis. Have not been able to obtain actual report yet. 01/10/2023: Albumin 3.4, LFTs elevated, Alk Phos 256 -I called today Dr. Gee's office and was explained that they are waiting for specialist to review recent hospitalization paperwork and they will call pt to schedule a f up apt to continue care. -Advise pt to call GI office in 1 wk if hasn't heard from them. -Referred for abdominal US w elastography to evaluate for cirrhosis. -Request TAN Cabrera to obtain recent medical records from [facility]. -Discussed w pt to take Tylenol only sporadically, no more than 1-2 tablets / day for RUQ pain, and Oxycodone only for severe pain. -Alarm signs and Sx discussed. Assessment & Plan (12/23/2022 10:25 AM EDT): She is on ursodiol 600mg BID, alk phos has remained stable I will refer to [facility] for fu, she hasn't seen Dr. Gee in 3 years FU at next appointment Cholestasis 07/15/2017 Osteoporosis 07/15/2017 Assessment & Plan (10/26/2024 2:52 PM EDT): On Forteo daily until last month, unclear as of why endocrinology has not sent any refill. I spoke with one of the nurses at [facility] endocrinology office to check with Dr. RODRIGUEZ regarding additional refills for Forteo versus change in for treatment, patient has tolerated medication well Lung mass 06/22/2017 MGUS (monoclonal gammopathy of unknown significa nce) 05/12/2017 Assessment & Plan (01/22/2023 5:14 AM EDT): Already seen by career center advisor yesterday. Assessment & Plan (12/23/2022 10:24 AM EDT): Needs to restart FU with hematology, new referral to [facility] Hematology Assessment & Plan (08/24/2022 1:45 PM EDT): Will order labs, given weight loss I will FU at next appointment and will decide on referral to hematology which she was following before. Closed fracture of fifth lumbar vertebra (CMS/HC C) 04/12/2017 Paraproteinemia 04/12/2017 Hyperlipidemia 08/02/2013 Blind left eye 08/17/2012 Depressive disorder 08/17/2012 Type 2 diabetes mellitus without complication Assessment & Plan (08/17/2024 2:30 PM EDT): Controlled, A1c continues to be low with no obvious hypoglycemic events or symptoms. Continue low-dose metformin for now and follow-up with me in 4 weeks with glucometer. We discussed that regarding hypoglycemic symptoms, to take high sugar low as needed. Follow-up with me in 4 weeks Assessment & Plan (02/24/2024 9:47 AM EDT): Controlled, A1c is low. Will lower Metformin to 500 mg per day due to hypoglycemia. Counseled re more frequent low calorie/carb meals. Check fgstk once daily Encouraged physical activity as tolerated. FU in 3 months. Reviewed and updated immunizations, pt agreed to influenza today. Assessment & Plan (12/23/2022 10:26 AM EDT): Controlled. Continue metformin XR 750 per day and fu with me in 3 months Counseled re more frequent low calorie/carb meals. Encouraged physical activity as tolerated. Assessment & Plan (08/24/2022 1:44 PM EDT): Controlled. GIven A1C is slightly on the low side I will decrease Metfromin ER to 750 BID and FU in 4 montns Counseled re more frequent low calorie/carb meals. Check fgstk daily Encouraged physical activity as tolerated. Assessment & Plan (06/12/2022 11:58 AM EST): Controlled. A1c is at goal. Continue on metformin Counseled re more frequent low calorie/carb meals. Check fgstk 1x daily Encouraged physical activity as tolerated. FU in 3 months. Essential hypertension 08/17/2012 Assessment & Plan (03/29/2025 2:49 PM EST): - Blood pressure fluctuates, with episodes of both hypertension and hypotension, particularly during illness and bleeding episodes, she will Increase fluid intake during these episodes. - Continue HCTZ 12.5 mg + losartan 100 mg and follow-up BP with RN in 2 weeks and with me in 4 to 6 weeks. - Follow up with the Nurse for blood pressure check in 2 weeks. Continue with a low sodium diet and regular exercise as tolerated. For BP < or = to 139/89 (or 129/79 for diabetic patients) continue current medication regimen and follow up with PCP in 4 weeks. For BP > or = to 140/90 (or 130/80 for diabetic patients) increase Start new medication Amlodipine 2.5 mg once a day Follow up with the Nurse for a second blood pressure check in 2-4 weeks if BP 140-150/90+ (or 130-150/80+ for diabetic patients). Refer to CDTM for BP >150/90+. If second Nurse visit is needed: For BP < or = to 139/89 (or 129/79 for diabetic patients) continue current medication regimen and follow up with the PCP in 3 weeks. For BP > or = to 140/90 (or 130/80 for diabetic patients) increase Amlodipine to 5 mg once a day Follow up with the PCP in 4 weeks. Assessment & Plan (11/30/2024 10:58 AM EDT): Appears in the low side, patient has orthostatic symptoms. Lowered HCTZ to 12.5 mg and follow-up BP at home, call back as needed if BP is above 140/85. Continue losartan and follow-up in 3 months Counseled re low salt diet/increase moderate physical activity. Check home BP BIW and prn CP/AL/ALFORD Non smoking patient. Assessment & Plan (02/24/2024 9:43 AM EDT): Slightly uncontrolled, pt will continue to monitor BP at home and follow up with me if BP is above 140/90. Continue on Lisinopril 10 mg + hydrochlorothiazide 12.5 mg and check labs today. Assessment & Plan (02/24/2024 9:11 AM EDT): >>ASSESSMENT AND PLAN FOR HYPERTENSION WRITTEN ON 06/12/2022 11:57 AM BY RITO HILLMAN MD Uncontrolled. Continue amlodipine same dose, increase lisinopril to 10mg/d Counseled re low salt diet/increase moderate physical activity. Check home BP BIW and prn CP/AL/ALFORD Non smoking patient. FU in 2m TV Assessment & Plan (02/24/2024 9:11 AM EDT): >>ASSESSMENT AND PLAN FOR HYPERTENSION WRITTEN ON 08/24/2022 1:44 PM BY MIKE HOLGUIN Controlled. Continue Amlodipine + Lisinopril 5 Counseled re low salt diet/increase moderate physical activity. Check home BP BIW and prn CP/AL/ALFORD Non smoking patient. Will order labs for next visit. Assessment & Plan (05/11/2022 2:33 PM EST): Uncontrolled today Continue Lisinopril 5 + Amlodipine 10mg Check BMP prior to next appt w me Counseled re low salt diet/increase moderate physical activity. Check home BP BIW and prn CP/AL/ALFORD and fu w me in 1m Non smoking patient. Mild intermittent asthma 08/17/2012 Assessment & Plan (10/26/2024 2:56 PM EDT): >>ASSESSMENT AND PLAN FOR ASTHMA WRITTEN ON 06/12/2022 11:58 AM BY RITO HILLMAN MD Controlled. Continue Flovent 220 + Albuterol prn Counseled to get Covid booster today, Influenza vax up to date Assessment & Plan (10/26/2024 2:55 PM EDT): Continue Symbicort twice daily, refill sent to pharmacy but explained to patient that she needs to follow-up with pulmonology for additional refills Assessment & Plan (05/16/2024 12:43 PM EST): Controlled on Symbicort BID. FU with me in 1 month. Assessment & Plan (01/22/2023 5:20 AM EDT): Controlled asthma. -Gave P20 and Biv vaccines today. Assessment & Plan (05/11/2022 2:31 PM EST): Doing better after RSV resolved Continue Flovent 220 bid Influenza IZ up to date, recommended Covid vax booster. She's a non smoker Resolved Problems Problem Noted Date Diagnosed Date Resolved Date COVID-19 05/16/2024 08/17/2024 Assessment & Plan (05/16/2024 12:41 PM EST): Resolved, has residual dry cough and ALFORD. Use Guaifenesin at night only + Albuterol que 6 hours, or PRN cough. Advised rest at home, increased hydration, and small infraction meals. FU in 1 month. Acute coronary syndrome 05/16/2024 06/0 09/2024 Rash 02/24/2024 08/17/2024 Assessment & Plan (02/24/2024 9:49 AM EDT): Unclear if related to recently added multivitamin from Ophthalmology, I called med boxes and medication will be put in bottles this month. Follow up with me in 3 months. Start Cetrizine 10 mg, follow up prn. Acute URI 05/26/2023 08/17/2024 SARS-CoV-2 positive 05/26/2023 08/18/19 25 Overview (05/26/2023): Prescribed paxlovid, advise hold atorvastatin for 8 days and amlodipine take half pill for 8 days Assessment & Plan (05/26/2023 3:34 PM EST): Prescribed paxlovid, advise hold atorvastatin for 8 days and amlodipine take half pill for 8 days Cervical paraspinal muscle spasm 12/23/2022 10/26/2024 Assessment & Plan (12/23/2022 10:23 AM EDT): Partially improved with toradol 5 days ago Toradol 30mg IM today and continue tylenol 325 + tizandine prn for the next week counseled regarding heat to affected area and stretching exercises reconsult PRN Acute low back pain 04/25/2022 10/27/19 Bilateral renal cysts 04/25/20222023 Right shoulder tendinitis 04/25/2022 Simple chronic bronchitis (CMS/HCC) 04/25/2022 08/17/2024 Subacute vaginitis 04/25/2022 Assessment & Plan (04/21/2023 12:45 PM EST): Rule out omar, will do BV swab Schedule for pap smear with me UTI symptoms 04/25/2022 07/10/2023 Arthropathy 07/19/2018 10/26/2024 Encounters Date Type Department Care Team Description 04/25/2025 Refill [facility] [address] [place] [address] Rito Hillman MD 04/02/2025 Telephone [facility] [address] [place] [address] Rito Hillman MD telephone call 03/29/2025 11:30 AM EST Office Visit [facility] [address] [place] [address] Rito Hillman MD Mild asthma with acute exacerbation, unspecified whether persistent (Primary Dx); Primary biliary cholangitis (CMS/HCC) (HCC); Epistaxis; Essential hypertension; Orthostatic dizziness 03/29/2025 Telephone [facility] [address] [place] [id number] Rito Hillman MD [facility] 03/29/2025 Travel 03/27/2025 Refill [facility] [address] [place] [address] Rito Hillman MD 03/23/2025 Telephone [facility] [address] [place] [address] Rito Hillman MD Nurse Triage 03/05/2025 10:40 AM EDT Office Visit [facility] [address] [place] [address] Adela Urrutia NP Acute cough (Primary Dx); Asthma with acute exacerbation, unspecified asthma severity, unspecified whether persistent; Elevated blood pressure reading in office with diagnosis of hypertension; Postnasal drip 03/05/2025 Travel 02/26/2025 Refill [facility] [address] [place] [address] Rito Hillman MD from Last 3 Months Immunizations Immunization Administration Dates Next Due Hep B, adult 03/21/2012, 1,09/24/1999,07/04 Influenza High-dose Quadriva lent Preservative Free 02/27/2022,03/24/2021,02/14/2020 Influenza injectable quadriv alent IIV4 with preservative 03/09/2017,03/29/2015 Influenza injectable quadriv alent preservative free 03/17/2018 Influenza, High Dose Seasona l, Preservative Free 02/24/2024,03/02/2019 Influenza, IIV3, injectable 02/20/2014, 1 Influenza, Split (incl. seven fied surface antigen) 02/13/2013,03/21/2012 Influenza, seasonal, injecta ble, preservative free 03/02/2016 Moderna Covid-19 Vaccine 12+ 01/01/2022, 03/24/2021,08/23/2020,07/26 Pfizer Covid-19 Vaccine 12+ Bivalent 01/20/2023 Pneumococcal Conjugate PCV 20 01/20/2023 Pneumococcal Polysaccharide PPSV23 03/02/2016, TD (adult), 2 Lf tetanus tox oid, preservative free, adsorbed 11/01/2002 Tdap 04/12/2017 Zoster, Recombinant 05/03/2020, 0,05/03/2019,03/02 Zoster, live 04/24/2016 Social History Tobacco Use Types Packs/Day Years Used Date Smoking Tobacco: Never Passive Smoke Exposure: Never Smokeless Tobacco: Never Tobacco Cessation:Counseling Given: Not Answered Alcohol Use Standard Drinks/Week Comments Never 0 (1 standard drink = 0.6 oz pur e alcohol) Housing Stability Answer Date Recorded What is your housing situation today? I have steve alcantara 11/30/[address] you li ve. Do you have problems with any of the following? None of the above 11/30/2024 Food Insecurity Answer Date Recorded Within the past 12 months, y ou worried that your food would run out before you got money to buy more: Never True 11/30/2024 Within the past 12 months,th e food you bought just didn't last and you didn't have enough money to get more: Never True 02/2025 Transportation Answer Date Recorded In the past 12 months, has l ack of transportation kept you from medical appts, meetings, work or from getting things needed for daily living? No 11/30/2024 Utilities Answer Date Recorded In the past 12 months, has t he electric, gas, oil or water company threatened to shut off services in your home? No 11/30/2024 Depression Answer Date Recorded Patient Health Questionnaire-2 Score 0 08/17/2024 Internet Access Answer Date Recorded Internet Access Q1 Yes 11/30/2024 Internet Access Q2 Not on file 11/30/2024 Comments No Sex and Gender Information Value Date Recorded Sex Assigned at Female 03/23/2022 10:15 AM EDT Legal Sex Female 10:15 AM EDT Gender Identity Female 03/23/2022 10:15 AM EDT Sexual Orientation Straight 03/23/2022 10 :15 AM EDT Last Filed Vital Signs Vital Sign Reading Time Taken Comments Blood Pressure 172/66 03/29/2025 12:00 PM EST Pulse 76 03/29/2025 12:00 PM EST Temperature 36.6 C (97.8 F) 03/29/2025 12:00 PM EST Respiratory Rate 20 03/29/2025 12:00 PM EST Oxygen Saturation 94% 03/29/2025 12:00 PM EST Inhaled Oxygen Concentration - - Weight 58 kg (127 lb 12.8 oz) 03/29/2025 12:00 P M EST Height 149.9 cm (4' 11 ) 03/29/2025 12:00 PM EST Body Mass Index 25.81 03/29/2025 12:00 PM EST Plan of Treatment Upcoming Encounters Date Type Department Care Team (Late st Contact Info) Description 06/06/2025 10:15 AM EST Office Visit [facility] [address] [place] [address] Rito Hillman MD [address] [place], [place] [phone] Health Maintenance Due Date Last Done Comments CT Colonography 1955 FIT DNA/Cologuard 1955 FIT 1955 FOBT 1955 Sigmoidoscopy 1955 Eye Exam 1963 Hepatitis A Vaccines (1 of 2 - Risk 2-dose series) 01/29/1972 RSV Patients and Patients Aged 60 years or older (1 - Risk 50-74 years 1-dose series) 2003 Lipid Panel 12/18/2023 12/17/2022, 08/23, 06/17/2020 COVID-19 Vaccine ( season) 2025 01/20/2023, 01/01/2022, 03/24/2021, Additional history exists Influenza Vaccine (#1) 2025 , 02/27/2022, 03/24/2021, Additional history exists Diabetes: Urine Protein Screening 02/23/2025 02/24/2024, 12/17/2022, 09/10/2021, Additional history exists Mammogram 05/06/2025 05/06/2024, 1206/2022, 04/18/2022, Additional history exists Diabetes: Hemoglobin A1C 06/02/2025 025, 08/25/2024, 08/17/2024, Additional history exists Depression Screening 08/17/2025 08/17/2024, 08/18/19 Diabetes: Foot Exam 08/17/2025 08/17/2024, 08/17/2024, 08/17/2024, Additional history exists Alcohol/Substance Use Screening 11/30/2025 11/30/2024 SDOH Screening 11/30/2025 11/30/2024 Tobacco Screening 03/29/2026 03/29/2025 DTaP/Tdap/Td Vaccines (2 - Td or Tdap) 04/12/2027 04/12/2017, 11/01/2002 Colonoscopy 06/02/2027 Colorectal Cancer Screening 06/02/2027 Hepatitis B Vaccines Completed 03/21/2012, 03/14/2001, 09/24/1999, Additional history exists Zoster Vaccines Completed 05/03/2020, 02/21, 05/03/2019, Additional history exists Pneumococcal Vaccine: 50+ Years Completed 01/20/2023, 03/02/2016, 12/10/2008 Hepatitis C Screening Completed 11/30/2024 HIB Vaccines Aged Out No longer eligi [...] patient's age to complete this topic Meningococcal Vaccine Aged Out No andree leeroy eligible based on patient's age to complete this topic RSV under 20 months Aged Out No longe r eligible based on patient's age to complete this topic Rotavirus Vaccines Aged Out No longer eligible based on patient's age to complete this topic Procedures Procedure Name Priority Date/Time Associated Diagnosis Comments POCT INFLUENZA B (ID NOW RAPID MOLECULAR) Routine 03/29/2025 3:32 PM EST Mild asthma with acute exacerbation, unspecified whether persistent POCT INFLUENZA A (ID NOW RAPID MOLECULAR) Routine 03/29/2025 3:30 PM EST Mild asthma with acute exacerbation, unspecified whether persistent POCT RAPID COVID ANTIGEN Routine 03/29/2025 3:29 PM EST Mild asthma with acute exacerbation, unspecified whether persistent POCT GLUCOSE Routine 03/29/2025 3:29 PM EST Orthostatic dizziness POCT RAPID COVID ANTIGEN Routine 03/05/2025 11:15 AM EDT Acute cough POCT INFLUENZA A (ID NOW RAPID MOLECULAR) Routine 03/05/2025 11:15 AM EDT Acute cough POCT INFLUENZA B (ID NOW RAPID MOLECULAR) Routine 03/05/2025 11:15 AM EDT Acute cough HEPATITIS PANEL, GENERAL Routine 11/30/2024 11:19 AM EDT Overweight POCT GLYCATED HEMOGLOBIN, TOTAL Routine 11/30/2024 10:42 AM EDT Type 2 diabetes mellitus without complication, without long-term current use of insulin (CMS/HCC) BI MAMMOGRAM SCREENING TOMOSYNTHESIS BILATERAL Routine 05/06/2024 8:15 AM EST ALBUMIN, RANDOM URINE W/CREATININE Routine 02/24/2024 10:14 AM EDT Bilateral lower extremity edema LIPID PANEL WITH REFLEX TO DIRECT LDL Routine 12/17/2022 1:16 PM EDT Essential hypertension Type 2 diabetes mellitus without complication, without long-term current use of insulin (CMS/HCC) from Last 3 Months or Most Recently Relevant to Health Maintenance Results * POCT Rapid Influenza B BAIRD ID NOW (03/29/2025 3:32 PM EST) Only the most recent of2 resultswithin the time period is included. Influenza B Negative Negative, Indeterminate [facility] QC Media Lot # [id number] [facility] Lot# Expiration Date [facility] Swab 03/29/2025 3:32 PM EST us Rito Hillman MD POINT OF CARE TEST ENTER /EDIT ORDERABLES Final Result [facility] [address] [place] [phone] * POCT Rapid Influenza A BAIRD ID NOW (03/29/2025 3:30 PM EST) Only the most recent of2 resultswithin the time period is included. [facility] Influenza A Negative Negative, Indeterminate [facility] QC Media Lot # [id number] [facility] Lot# Expiration Date [facility] Swab 03/29/2025 3:30 PM EST Rito Hillman MD POINT OF CARE TEST ENTER /EDIT ORDERABLES Final Result [facility] [address] [place] [phone] * POCT Rapid Covid-19 BinaxNOW (03/29/2025 3:29 PM EST) Only the most recent of2 resultswithin the time period is included. [facility] Rapid COVID Ag Negative QC Media Lot # [id number] Lot# Expiration Date Swab 03/29/2025 3:29 PM EST Result [facility] Rito Hillman MD POINT OF CARE TEST ENTER /EDIT ORDERABLES Final Result * POCT Glucose (03/29/2025 3:29 PM EST) [facility] Glucose Blood, POC 112 60 - 200 mg/dL QC Media Lot # [id number] Lot# Expiration Date Blood Capillary blood specimen / Unknown 03/29/2025 3:29 PM EST Result [facility] Rito Hillman MD POINT OF CARE TEST ENTER /EDIT ORDERABLES Final Result * Hepatitis Panel, General (11/30/2024 11:19 AM EDT) [facility] Hepatitis A IgM Nonreactive Nonreactive [facility] Comment:IgM antibodies to AL V not detected; does not exclude earlyacute or recovered HAV infection. ~Hepatitis B Surface Antibody NONREACTIVE Nonreactive [facility] Comment:Nonreactive: < 8.00 mIU/mL Hepatitis B Core Antibody Nonreactive Nonreactive [facility] Hepatitis C Antibody Nonreactive Nonreactive [facility] Comment:Antibodies to HCV no t detected; does not exclude early acuteHCV infection. Hepatitis B Surface Ag Negative Negative [facility] Blood 11/30/2024 11:1 9 AM EDT 11/30/2024 2:19 PM EDT us Rito Hillman MD LAB BLOOD ORDERABLES Fin al Result [facility] [address] [place] [phone] * POCT HGB A1C (11/30/2024 10:42 AM EDT) Hemoglobin A1C 5.2 4.0 - 5.7 % QC Media Lot # [id number] Lot# Expiration Date Blood 11/30/2024 10:4 2 AM EDT Rito Hillman MD POINT OF CARE TEST ENTER /EDIT ORDERABLES Final Result * BI Mammogram Screening Tomosynthesis Bilateral (05/06/2024 8:15 AM EST) Anatomical Region Laterality Modality Breast Bilateral Mammography 05/06/2024 8:15 AM EST Narrative 05/16/2024 8:49 AM EST [facility] [address] [place] [address] Mammography Report Signed Patient: Tameka Patterson MR#: [id number] 5 : 1955 Acct:[id number] Age/Sex: 69 / F ADM Date: 05/06/24 Loc: HO.MAMMO Attending Dr: Rito Hillman MD Ordering Physician: Rito Hillman MD Results: 1Ne gative Date of Service: 05/06/24 Follow Up: 1 Year From Orig inal Mammogram Procedure(s): MM tomosynthesis screening BI Accession Number(s): [id number] cc: Rito Hillman MD EXAMINATION: MM SCREENING DIGITAL BREAST TOMOSYNTHESIS, BILATERAL CLINICAL INFORMATION: Screening. Asymptomatic. COMPARISON: Mammography: Comparison is made with available priors TECHNIQUE: Digital breast mammography with tomosynthesis is performed in both the craniocaudal and mediolateral oblique views along with computer-aided detection (CAD). FINDINGS: There are scattered areas of fibroglandular density (ACR BI-RADS breast composition Category b). There are no significant masses, abnormal calcifications, or other abnormalities. MM/MM tomosynthesis screening BI IMPRESSION: No mammographic evidence of malignancy. ASSESSMENT: BI-RADS BI-RADS 1 - Negative RECOMMENDATION: Routine annual mammography screening. 1 year F/U This examination should not preclude the clinical evaluation of a suspicious palpable abnormality. This patient's information was entered into a reminder system with a target due date for their next mammogram. Electronically signed by: Fang Mcwilliams DO 05/16/2024 08:46 AM EST Dictated By: Fang Mcwilliams DO Signed By: <Electronically signed by Fang Mcwilliams DO in OV> 05/16/24 0846 DD/ 0815 TD/TT: 05/06/24 0820 Pool Player: Procedure Note Donotuseinterpreter, Image - 05/16/2024 [facility] [address] [place] [address] Mammography Report Signed Patient: Tameka Patterson#: [id number] 5 : 1955cct:[id number] Age/Sex: 69 / FADM Date: 05/06/24 Loc: HO.MAMMO Attending Dr: Rito Hillman MD Ordering Physician: Rito Hillman MDResults: 1Ne gative Date of Service: 05/06/24Follow Up: 1 Year From Orig inal Mammogram Procedure(s): MM tomosynthesis screening BI Accession Number(s): [id number] cc: Rito Hillman MD EXAMINATION: MM SCREENING DIGITAL BREAST TOMOSYNTHESIS, BILATERAL CLINICAL INFORMATION: Screening. Asymptomatic. COMPARISON: Mammography: Comparison is made with available priors TECHNIQUE: Digital breast mammography with tomosynthesis is performed in both the craniocaudal and mediolateral oblique views along with computer-aided detection (CAD). FINDINGS: There are scattered areas of fibroglandular density (ACR BI-RADS breast composition Category b). There are no significant masses, abnormal calcifications, or other abnormalities. MM/MM tomosynthesis screening BI IMPRESSION: No mammographic evidence of malignancy. ASSESSMENT: BI-RADS BI-RADS 1 - Negative RECOMMENDATION: Routine annual mammography screening. 1 year F/U This examination should not preclude the clinical evaluation of a suspicious palpable abnormality. This patient's information was entered into a reminder system with a target due date for their next mammogram. Electronically signed by: Fang Mcwilliams DO 05/16/2024 08:46 AM EST Dictated By: Fang Mcwilliams DO Signed By: <Electronically signed by Fang Mcwilliams DO in OV> 05/16/24 0846 DD/ 0815 TD/TT: 05/06/24 0820 Pool Player: Rito Hillman MD IMG BI PROCEDURES Edited Result - Final * (ABNORMAL) Albumin, Random Urine W/Creatinine (02/24/2024 10:14 AM EDT) Creatinine, Urine 122.34 mg/dL [facility] Microalbumin Urine 62.0 mg/L [facility] Microalbum Creatinine Ratio Ur 50.6(H) <30 ug/mg cr [facility] Comment:Albumin/Creatinine R atio Reference Ranges: Normal: < 30 ug/mg creatinine Microalbuminuria: 30 - 300 ug/mg creatinineClinical Albuminuria: > 300 ug/mg creatinine Urine (Urine, Random) 02/24/2024 10:14 AM EDT 02/24/2024 11:24 AM EDT us Adela Urrutia NP LAB URINE ORDERABLES Final Resu lt [facility] [address] [place] [phone] * Lipid Panel with Reflex to Direct LDL (12/17/2022 1:16 PM EDT) Triglycerides 95 mg/dL [facility] Comment:Desirable Triglyceri de: less than 150 mg/dLBorderline High Triglyceride 150-199 mg/dLHigh Triglyceride: 200-499 mg/dLVery High Triglyceride: greater than or equal to 5OO mg/dL Cholesterol 155 mg/dL [facility] Comment:Desirable Cholestero l: less than 200 mg/dLBorderline High Cholesterol: 200-239 mg/dLHigh Cholesterol: greater than 239 mg/dL LDL Cholesterol Calculated 75 mg/dl [facility] Comment:Desirable LDL: less than 100 mg/dLNear Optimal/Above Optimal LDL: 110- 129 mg/dLBorderline High LDL: 130-159 mg/dLHigh LDL: 160-189 mg/dLVery High LDL: greater than or equal to 190 mg/dL HDL Cholesterol 61 mg/dL [facility] Comment:Desirable HDL: great er than 40 mg/dL Note: This HDL assay may give artificially low results in patients with liver disease. 12/17/2022 1:16 PM EDT 12/17/2022 4:07 PM EDT us Rito Hillman MD LAB BLOOD ORDERABLES Fin al Result [facility] [address] [place] [phone] from Last 3 Months or Most Recently Relevant to Health Maintenance Insurance [facility] OPT[employer] (HMO D-SNP) TAMEKA SHANNON [id number] Care Teams Newborn Hearing Screener Relationship Specialty Start Date End Date Rito Hillman MD [address] [place] [phone] PCP - General Family Medicine 12/20/18
--- OUTSIDE RECORDS SUMMARY | 2025-05-12 09:56 | XMS_ITS | Data Portability ---
Author Organization [place] - [facility], Allergy Address [address] [place] [id number] Care Team Providers Care Technical Research Scientist Name Role Phone RITO HILLMAN Referring Provider Assessment Encounter Date Assessment Date Assessment LastModified by Organization Details LastModified Time 01/01/2025 01/01/2025 The patient has recurrent right-sided nosebleeds likely exacerbated by aspirin use and nasal dryness. She also has a longstanding history of anosmia. I recommend initiating conservative management to address nasal dryness and prevent further nosebleeds. The patient should begin using saline nasal solution and KY jelly to moisturize the nasal passages. She should avoid using nasal sprays such as Flonase. We will schedule a follow-up appointment in approximately one month to assess her progress. If the conservative measures are ineffective, we will consider further evaluation using a nasal telescope to identify any underlying pathology. The patient was educated on the importance of gentle nasal care to avoid trauma and minimize bleeding risk. She was advised to avoid forceful nose blowing and to monitor for any worsening symptoms. An appointment will be scheduled with one of my physician assistants in one month for follow-up evaluation. [email or web address] Not available 01/01/2025 14:37:57 01/31/2025 01/31/2025 70 year old female, with a history of myocardial infarction on aspirin and chronic anosmia, presents for reevaluation of right-sided epistaxis. Nasal mucosa is overall dry with no prominent blood vessel or source of bleeding that requires cautery in the office today. Recommend using a saline nasal spray at least four times daily, followed by saline gel after every use to help better retain moisture in the nose. If nosebleeds persist despite direct pressure to the base of the nose, patient was instructed to soak a cotton ball with oxymetazoline (Afrin) and insert it into the affected nostril while applying pressure. Patient may return to the office as needed or go to the emergency room if episodes are severe. All questions were answered. [email or web address] Not available 01/31/2025 17:10:39 Plan of Treatment Reminders Order Date Submit Date Provider Last Modified By Organization Details Last Modified Time Details Appointments None record ed. Lab None record ed. Referral None record ed. Procedures None record ed. Surgeries None record ed. Imaging None record ed. Medication Orders None record ed. Patient TargetsNo targets recorded. Patient Instructions Encounter Date Encounter Id Patient Instructions Last Modified By Organization Details Last Modified Time 01/01/2025 [id number] nosebleed information [email or web address] Not available 01/01/2025 14:39:35 - Begin using saline nasal solution and KY jelly to moisturize nasal passages. - Avoid using nasal sprays such as Flonase. - Avoid forceful nose blowing. - Monitor for worsening symptoms. - Follow up in one month with a physician assistant account executive. ernesto Not available 01/01/2025 14:37:57 Please note: Parts of this encounter note have been generated by AI based on audio conversation. Patient consent was required prior to utilizing this technology. Content review was required prior to finalizing the note. [email or web address] Not available 01/01/2025 14:37:57 Reason for Referral None Reported. Problems Name Problem SNOMED Code Status Onset Date Resolution Date Notes Provider Name and Address Organization Details Recorded Time Bleeding from nose 849936757 Active 2021 [employer] [employer]; Note: Date Diagno sed: 022 11:24 AM (R04.0 ) Not Available [employer] 4 02:13:48 Coronary arteriosclero sis 37168819 Active 2024 DAMON ALARCON MD [address] [place], [address] , [place] - [facility] 14:38:54 Loss of sense of smell 35826797 Active 2024 TAMEKA BAJWA [address] [address], [place], [address] , [facility] - [facility] 23:19:48 Problem Notes None recorded. Medical Equipment None Reported. Allergies No known drug allergies Medications Name Sig Start Date Stop Date Status Note LastModified by Organization Details LastModified Time medbox status USE DIRECTED 01/01 completed Not Available Not Available Not Available atorvasta tin 40 mg tablet TAKE 1 TABLET BY MOUTH AT BEDTIME active Not Available Not Available No t Available tizanidin e 2 mg tablet TAKE 1 TABLET BY MOUTH EVERY 8 HOURS NEEDED FOR MUSCLE SPASMS FOR UP TO 7 DAYS 01/01 completed Not Available Not Available Not Available albuterol sulfate 2.5 mg/3 mL (0.083 %) solution for nebulizat ion USE 1 AMPULE USING A NEBULIZE R FOUR TIMES DAILY NEEDED active Not Available Not Available No t Available Vitamin C 500 mg tablet TAKE 1 TABLET BY MOUTH EVERY OTHER DAY IN THE MORNING active Not Available Not Available No t Available cetirizin e 10 mg tablet TAKE 1 TABLET BY MOUTH EVERY DAY FOR 10 DAYS 01/01 completed Not Available Not Available Not Available simethico ne 180 mg capsule 01/01 completed Medicati on ID: [id number] rand Name: simethic one Send Method: E-Prescr ibed Sub s Allowed: subs OK Medic ationGen ericName : simethic one Not Available Not Available Not Available fluconazo le 150 mg tablet TAKE 1 TABLET BY MOUTH 01/31 completed Not Available Not Available Not Available benzonata te 200 mg capsule TAKE 1 CAPSULE BY MOUTH TWICE A DAY NEEDED FOR COUGH FOR 7 DAYS (*NOT COVERED* ) 01/01 completed Not Available Not Available Not Available ondansetr on HCl 4 mg tablet TAKE 1 TABLET BY MOUTH EVERY 8 HOURS NEEDED FOR NAUSEA AND VOMITING FOR UP TO 3 DAYS 01/01 completed Not Available Not Available Not Available prednison e 20 mg tablet TAKE 2 TABLETS (40 MG TOTAL) BY MOUTH DAILY FOR 4 DAYS 01/01 completed Not Available Not Available Not Available alendrona te 70 mg tablet 01/01 completed Medicati on ID: [id number] B rand Name: alendron ate Send Method: E-Prescr ibed Sub s Allowed: subs OK Medic ationGen ericName : alendron ate Not Available Not Available Not Available amlodipin e 5 mg tablet TAKE 1 TABLET BY MOUTH 1 TIME EACH DAY. 01/01 completed Not Available Not Available Not Available sulfameth oxazole 800 mg-trimet hoprim 160 mg tablet TAKE 1 TABLET BY MOUTH TWICE DAILY FOR 5 DAYS 01/31 completed Not Available Not Available Not Available aspirin 81 mg tablet,de layed release TAKE 1 TABLET BY MOUTH EVERY MORNING active Not Available Not Available No t Available tramadol 50 mg tablet TAKE 1 TABLET BY MOUTH EVERY 6 HOURS IF NEEDED FOR SEVERE PAIN FOR UP TO 3 DAYS. 01/01 completed Not Available Not Available Not Available acetamino phen 500 mg tablet TAKE 2 TABLETS BY MOUTH EVERY 6 HOURS NEEDED FOR PAIN active Not Available Not Available No t Available vancomyci n 125 mg capsule TAKE 1 CAPSULE BY MOUTH FOUR TIMES DAILY FOR 10 DAYS 01/01 completed Not Available Not Available Not Available guaifenes in 200 mg tablet TAKE 2 TABLETS BY MOUTH TWICE DAILY IN THE MORNING AND AT BEDTIME NEEDED FOR COUGH 01/01 completed Not Available Not Available Not Available hydrocort isone 2.5 % topical cream with perineal applicato r APPLY RECTALLY ONE OR TWO TIMES DAILY NEEDED FOR PAIN FOR 10 DAYS active Not Available Not Available No t Available magnesium oxide 400 mg (241.3 mg magnesium ) tablet TAKE 1 TABLET BY MOUTH TWICE DAILY FOR 5 DAYS active Not Available Not Available No t Available phenazopy ridine 100 mg tablet TAKE 1 TABLET BY MOUTH 3 TIMES A DAY NEEDED FOR PAIN (*NOT COVERED* ) 01/01 completed Not Available Not Available Not Available amlodipin e 10 mg tablet 01/01 completed Medicati on ID: [id number] rand Name: amlkylie nicole Send Method: E-Prescr ibed Sub s Allowed: subs OK Medic ationGen ericName : amlodipi ne Not Available Not Available Not Available ferrous sulfate 325 mg (65 mg iron) tablet TAKE 1 TABLET BY MOUTH EVERY MORNING WITH BREAKFAS T active Not Available Not Available No t Available nystatin 100,000 unit/gram topical cream APPLY 1 APPLICAT ION TOPICALL Y 2 TIMES A DAY TO AFFECTED AREA UNTIL RASH RESOLVES 01/31 completed Not Available Not Available Not Available lisinopri l 10 mg tablet TAKE 1 TABLET BY MOUTH EVERY MORNING 01/01 completed Not Available Not Available Not Available ursodiol 300 mg capsule TAKE 2 CAPSULES BY MOUTH TWICE DAILY IN THE MORNING AND EVENING active Not Available Not Available No t Available sertralin e 25 mg tablet TAKE 1 TABLET BY MOUTH EVERY MORNING active Not Available Not Available No t Available diltiazem CD 120 mg capsule,e xtended release 24 hr TAKE 1 CAPSULE BY MOUTH 1 TIME EACH DAY. active Not Available Not Available No t Available codeine 10 mg-guaife nesin 100 mg/5 mL oral liquid TAKE 5 ML BY MOUTH EVERY 4 HOURS IF NEEDED FOR COUGH FOR UP TO 3 DAYS. MAX DAILY AMOUNT: 30 ML 01/01 completed Not Available Not Available Not Available lisinopri l 5 mg tablet 01/01 completed Medicati on ID: [id number] rand Name: lisinopr il Send Method: E-Prescr ibed Sub s Allowed: subs OK Medic ationGen ericName : lisinopr il Not Available Not Available Not Available hydrochlo rothiazid e 25 mg tablet TAKE 1 TABLET BY MOUTH EVERY DAY 01/01 completed Not Available Not Available Not Available ergocalci ferol (vitamin D2) 1,250 mcg (50,000 unit) capsule TAKE 1 CAPSULE BY MOUTH ONCE WEEKLY ON WEDNESDAY MORNING active Not Available Not Available No t Available losartan 100 mg tablet TAKE 1 TABLET BY MOUTH 1 TIME EACH DAY. active Not Available Not Available No t Available fluticaso ne propionat e 50 mcg/actua tion nasal spray,anum pension USE 1-2 SPRAYS IN EACH NOSTRIL ONCE DAILY NEEDED active Not Available Not Available No t Available metformin ER 500 mg tablet,ex tended release 24 hr TAKE 1 TABLET BY MOUTH EVERY EVENING WITH FOOD active Not Available Not Available No t Available loratadin e 10 mg tablet 01/01 completed Medicati on ID: [id number] B rand Name: loratadi ne Send Method: E-Prescr ibed Sub s Allowed: subs OK Medic ationGen ericName : loratadi ne Not Available Not Available Not Available simethico ne 80 mg chewable tablet CHEW 1 TABLET BY MOUTH 4 TIMES A DAY NEEDED FOR GAS 01/31 completed Not Available Not Available Not Available oxycodone 5 mg tablet TAKE 1 TABLET BY MOUTH EVERY 6 HOURS NEEDED FOR PAIN 01/31 completed Not Available Not Available Not Available neomycin 3.5 mg/g-poly myxin B 10,000 unit/g-de xameth 0.1 % eye oint APPLY 1/2 INCH INTO AFFECTED EYE(S) 3 TIMES A DAY FOR 10 DAYS *SPACE EVENLY DURING WAKING HOURS* 01/01 completed Not Available Not Available Not Available metformin ER 750 mg tablet,ex tended release 24 hr TAKE 1 TABLET BY MOUTH EVERY EVENING WITH FOOD 01/01 completed Not Available Not Available Not Available Flovent HFA 220 mcg/actua tion aerosol inhaler 01/01 completed Medicati on ID: [id number] rand Name: Flovent HFA Send Method: E-Prescr ibed Sub s Allowed: subs OK Medic ationGen ericName : Flovent HFA Not Available Not Available Not Available BD Ultra-Fin e Short Pen Needle 31 gauge x 5/16 USE DIRECTED EVERY DAY WITH forteo active Not Available Not Available No t Available cholecalc iferol (vitamin D3) 25 mcg (1,000 unit) tablet 01/01 completed Medicati on ID: [id number] rand Name: cholecal ciferol (vitamin D3) Send Method: E-Prescr ibed Sub s Allowed: subs OK Medic ationGen ericName : cholecal ciferol (vitamin D3) Not Available Not Available Not Available hydrochlo rothiazid e 12.5 mg tablet TAKE 1 TABLET BY MOUTH EVERY MORNING active Not Available Not Available No t Available Symbicort 80 mcg-4.5 mcg/actua tion HFA aerosol inhaler INHALE 2 PUFFS BY MOUTH TWICE DAILY RINSE MOUTH AFTER USING. active Not Available Not Available No t Available FreeStyle Lite Strips USE DIRECTED TO TEST BLOOD SUGAR TWICE DAILY active Not Available Not Available No t Available FreeStyle Goodyears Bar Lite kit TEST BLOOD SUGAR ONCE DAILY active Not Available Not Available No t Available diclofena c 1 % topical gel APPLY 2 GRAMS TOPICALL Y 4 TIMES A DAY IN THE MORNING, AT NOON, IN THE EVENING, AND AT BEDTIME NEEDED FOR PAIN FOR UP TO 7 DAYS 01/31 completed Not Available Not Available Not Available teriparat hussain 20 mcg/dose (560 mcg/2.24 mL) subcutane ous pen injector INJECT 20 mcg SUBCUTAN EOUSLY EVERY DAY DIRECTED FOR 28 DAYS 01/31 completed Not Available Not Available Not Available calcium 200 mg (as citrate)- vitamin D3 6.25 mcg (250 unit) tablet TAKE 2 TABLETS BY MOUTH TWICE DAILY IN THE MORNING AND EVENING active Not Available Not Available No t Available Creon 24,000-76 ,000-120, 000 unit capsule,d elayed release 01/01 completed Medicati on ID: [id number] rand Name: Creon Se nd Method: E-Prescr ibed Sub s Allowed: subs OK Medic ationGen ericName : Creon Not Available Not Available Not Available Dexilant 60 mg capsule, delayed release 01/01 completed Medicati on ID: [id number] rand Name: Dexilant Send Method: E-Prescr ibed Sub s Allowed: subs OK Medic ationGen ericName : Dexilant Not Available Not Available Not Available TRUEplus Lancets 33 gauge USE DIRECTED TO TEST BLOOD SUGAR TWICE DAILY active Not Available Not Available No t Available PreserVis ion AREDS-2 250 mg-90 mg-40 mg-1 mg capsule TAKE 1 CAPSULE BY MOUTH TWICE DAILY IN THE MORNING AND IN THE EVENING 01/31 completed Not Available Not Available Not Available Paxlovid 300 mg (150 mg x 2)-100 mg tablets in a dose pack TAKE 3 TABLETS BY MOUTH TWICE A DAY DIRECTED FOR 5 DAYS 01/01 completed Not Available Not Available Not Available Vitals Date Recorded Body height Body mass index (BMI) Body weight Provider Name and Address Organization Details Last Updated DateTime 01/01/2025 149.86 cm 25.9 kg/m2 68951.82 g LEXY SHAW [place] - [facility] 01/01/2025 14:23:18 Date Recorded Body height Body mass index (BMI) Body weight Provider Name and Address Organization Details Last Updated DateTime 01/31/2025 149.86 cm 32.5 kg/m2 04501.37 g Soledad Lucero [place] - [facility] 01/31/2025 09:48:50 Social History None recorded. Functional Status None recorded. Mental Status None recorded. Family History Nothing Reported. Medical History Condition Response Diabetes Y Arthritis Y Depression Y Gynecological HistoryNo gynecological history recorded. Obstetrics History GPAL:G 0 P 0 0 0 0 Past Encounters Encounter ID Performer Location Encounter Start Date Encounter Closed Date Diagnosis/Indication Diagnosis SNOMED-CT Code Diagnosis ICD10 Code Diagnosis IMO Codes Diagnosis Note [id number] DAMON ALARCON MD [facility] [address] [place] [address] 01/01/2025 13:47:37 01/01/2025 14:40:23 Bleeding from nose 389710379 R04.0 Long-term current use of antiplatelet drug 7118767747 34448 Z79.02 Coronary arteriosclerosis 76628873 I25.10 [id number] TAMEKA BAJWA [facility] [address] [place] [address] 01/31/2025 09:24:21 01/31/2025 10:46:42 Long-term current use of antiplatelet drug 5409657268 16793 Z79.02 Bleeding from nose 67201 6005 R04.0 Health Concerns Section Related Observation LastModified by Organization Detai ls LastModified Time None Recorded Concern Status LastModified by Organization Details LastModified Time None Recorded Advance Directives Directive None Recorded Payers Insurance Date Sequence Insurance Name Policy Number Policy Aguilar Covered Member ID Aguilar Member ID Guarantor Name 02/13/2025 1 [facility] - DOS ON OR AFTER 2022 - SKILLED NURSING OPTIONS (MEDICARE REPLACEMENT/ADV ANTAGE - HMO) Tameka Patterson [id number] Tameka Patterson 03/27/2025 1 [facility] - DOS ON OR AFTER 2022 - SKILLED NURSING OPTIONS AND ONE CARE (MEDICARE REPLACEMENT/ADV ANTAGE - PPO) Tameka Patterson [id number] Tameka Patterson Notes Date Note Type Note Provider Name and Address Organization Details Recorded Time 01/01/2025 text/html ROS as noted in the HPI Tameka Patterson is a 69-year-old female who presents for evaluation of recurrent right-sided nosebleeds and anosmia. The patient reports a history of anosmia since the age of 38. She has experienced recurrent nosebleeds for the past few months, with the most recent episode occurring on Wednesday, lasting approximately 30 minutes and resulting in saturating a paper towel. She has a history of a heart attack and is currently taking aspirin. The patient occasionally uses nasal sprays such as Flonase but does not use them consistently. She has not utilized saline solutions or other recommended nasal care measures. She reports difficulty breathing, which may be related to her cardiac history. DAMON RASCON MD 100 [facility],[address], [address], [facility] - [facility] 01/01/2025 14:39:38 01/31/2025 text/html ROS as noted in the HPI 70 year old female, with a history of myocardial infarction on aspirin and chronic anosmia, presents for reevaluation of right-sided epistaxis. Patient reports reduction in severity and frequency with the saline spray. She mostly notices blood-tinged mucus when blowing her nose. Last episode was a couple weeks ago. DAMON RASCON MD [address] [place] [address],[address] [address], [place], [address], [facility] 01/31/2025 21:49:13 OBGyn Episode No OBEpisode recorded.
--- OUTSIDE RECORDS SUMMARY | 2025-05-12 09:56 | XMS_ITS | Encounter Summary ---
Author Organization [employer] Address [address] [facility] [address] [place] [address] Care Team Providers Care Enthone Solder Stripper Name Role Phone Shelli Pacheco MD Primary Care Provider + Reason for Visit * Reason Onset Date Comments Medication Question 10/13/2024 Encounter Details Date Type Department Care Team (Late st Contact Info) Description 10/13/2024 Telephone [facility] [address] [place], [place] [phone] Shelli Pacheco MD [address] [place], [place] [phone] Medication Question Social History Tobacco Use Types Packs/Day Years [...] AM EDT documented as of this encounter Miscellaneous Notes * Telephone Encounter - Shahla Leong LPN - 10/13/2024 12:56 PM EDT Medication pended. * Telephone Encounter - Shahla Leong LPN - 10/13/2024 12:52 PM EDT PCP VAC. Last seen 08/31/24. * Telephone Encounter - William Vo - 10/13/2024 12:37 PM EDT TC from pt requesting medication refill. Medications needing refill : albuterol 108 (90 Base) MCG/ACT inhaler To be sent to: [facility] documented in this encounter Plan of Treatment Upcoming Encounters Date Type Department Care Team (Late st Contact Info) Description 06/06/2025 10:15 AM EST Office Visit [facility] [address] [place] [address] Shelli Pacheco MD [address] [place] [address] documented as of this encounter Visit Diagnoses Not on filedocumented in this encounter Care Teams Enthone Solder Stripper Relationship Specialty Start Date End Date Shelli Pacheco MD [address] [place] [address] PCP - General Family Medicine 12/20/18 documented as of this encounter
--- OUTSIDE RECORDS SUMMARY | 2025-05-12 09:56 | XMS_ITS | Encounter Summary ---
Author Organization [employer] Address [address] [facility] [address] [place] [address] Care Team Providers Care Surface Boss Name Role Phone Shelli Pacheco MD Primary Care Provider + Encounter Details Date Type Department Care Team (Late st Contact Info) Description 04/27/2023 Orders Only [facility] [address] [place], [place] [phone] Shelli Pacheco MD [address] [place], [place] [phone] Social History Tobacco Use Types Packs/Day Years [...] Description 06/06/2025 10:15 AM EST Office Visit [facility] [address] [place], [place] [phone] Shelli Pacheco MD [address] [place], [place] [phone] documented as of this encounter Visit Diagnoses Not on filedocumented in this encounter Care Teams Surface Boss Relationship Specialty Start Date End Date Shelli Pacheco MD [address] [place], [place] [phone] PCP - General Family Medicine 12/20/18 documented as of this encounter
--- OUTSIDE RECORDS SUMMARY | 2025-05-12 09:56 | XMS_ITS | Encounter Summary ---
Author Organization [employer] Address [address] [facility] [address] [place] [address] Care Team Providers Care Exercise Scientist Name Role Phone Shelli Pacheco MD Primary Care Provider + Reason for Visit * Reason Comments Med Refill Encounter Details Date Type Department Care Team ([facility] st Contact Info) Description 03/08/2024 Refill [facility] [address] [place] [phone] Shelli Pacheco MD [address] [place], [place] [phone] Social History Tobacco Use Types Packs/Day Years [...] Description 06/06/2025 10:15 AM EST Office Visit [facility] [address] [place] [address] Shelli Pacheco MD [address] [place] [address] documented as of this encounter Visit Diagnoses Not on filedocumented in this encounter Care Teams Exercise Scientist Relationship Specialty Start Date End Date Shelli Pacheco MD [address] [place] [address] PCP - General Family Medicine 12/20/18 documented as of this encounter
== END 2025-05-12 09:53 | disposition home or self-care (01) ==
LOC: HO.MAMMO 09:52
PROVIDERS: PCP Internal Medicine; Visit Provider Internal Medicine
DX: Z12.31 Encounter for screening mammogram for malignant neoplasm of breast (principal)
CPT/HCPCS: 77063; 77067

== ENCOUNTER → 2025-05-12 10:00 | Outpatient (BNV) | payer OTHER, SELFPAY | PROVIDERS: PCP Internal Medicine; Visit Provider Internal Medicine | DX: Z12.31 Encounter for screening mammogram for malignant neoplasm of breast (principal) | CPT/HCPCS: 77063; 77067 ==